=== PATIENT | female | born 1945 | race Caucasian/White ===

== ENCOUNTER → 2017-06-08 09:18 | Outpatient (CLI) | payer MEDICARE, SELFPAY ==
--- NOTE | 2017-06-08 09:26 | XR_ITS ---
XR DEXA axial skeleton COMPARISON: DEXA scan 11/07/2009 HISTORY: Patient is postmenopausal TECHNIQUE: DEXA scanning lumbar spine and hips FINDINGS: The average BMD lumbar spine L1-L4 is 1.497 g centimeters squared with a T score of 2.6. This is improved from the previous study which time the T score was 2.0. The total BMD right hip is 1.169 g centimeters square with a T score 1.3. Right femoral neck is 1.107 g centimeters square with T score of 0.5. These values show little if any change from the previous study. The left hip show similar values. IMPRESSION: Normal study lumbar spine and hips, consider follow-up study in approximately 2 years
--- NOTE | 2017-06-08 09:27 | MM_ITS ---
MM Dig screening mamm BI w/CAD CAD Screening ORDERING PHYSICIAN : Clare Amador MD PATIENT AGE: 71 years GENDER: Female COMPARISON: Previous mammograms: November 2013, August 2011, July INDICATION: Routine screening. No hormones. No new complaints. Patient was very tender today could not tolerate much compression. Noncontributory family history previous percutaneous biopsy left breast TECHNIQUE: Standard CC and MLO images were obtained. R2 CAD reviewed. FINDINGS: Moderate breast density. Mild asymmetry. Overall pattern similar to previous studies with no new areas of concern. No dominant mass nor suspicious calcifications of significant concern. Bilateral follow-up in one year adequate RIGHT BREAST:. No prominent findings. Stable benign calcification 12:00. Subtle asymmetric glandular densities overall appears similar to multiple previous studies dating with no significant change compared back to multiple studies , Including 2009 LEFT BREAST:A metallic clip from previous percutaneous biopsy is seen at the central left rest 12 o'clock position. When technique is considered I see no significant new findings either breast It is noted patient was most tender today and thus less compression but adequate studies. IMPRESSION: . . No significant new findings. . Basically stable . Follow-up in one year recommended & would be encouraged BI-RADS Category: 2 Benign Finding(s) RECOMMENDED FOLLOW-UP: 1YR - 1 YEAR FOLLOW-UP (A letter has been sent to the patient regarding results of the study.) Knee
== END ==
PROVIDERS: PCP Family Medicine; Visit Provider Family Medicine
DX: Z12.31 Encounter for screening mammogram for malignant neoplasm of breast (principal); M85.89 Other specified disorders of bone density and structure, multiple sites
CPT/HCPCS: 77067; 77080

== ENCOUNTER → 2017-06-29 14:03 | Outpatient (CLI) | payer MEDICARE, SELFPAY ==
--- NOTE | 2017-06-29 14:15 | CA_ITS ---
PROCEDURE: 2-D M-mode and color Doppler study INDICATIONS FOR THE TEST: Chest pain COPD Heart Murmur Tobacco Smoking Palpitations Fatigue Syncope Edema+ Hypertension+Diabetes Mellitus Rheumatic Fever SOB HICKS Obesity Hyperlipidemia Family History HD Additional History PATIENT INFORMATION HEIGHT:65 WEIGHT:182 GENDER: Female B/P:110/70 2-D/M-MODE INTERPRETATION: 2-D MEASUREMENTS OBSERVED VALUES IN CMS Right Ventricular Dimension (RVDd) 3.1 Interventricular Septum (Thickness)(IVsd) 1.1 Left Ventricular Internal Dimensions(LVIDd) 3.8 Left Ventricular Posterior Wall (Thickness)(LVPWd) 1.1 Aortic Root 3.2 Aortic Cusp Separation 2.1 Left Atrial Dimensions (LAD) 4.3 2D 1. Left atrium is mildly enlarged, left ventricle is normal size, there is mild concentric left ventricular hypertrophy, visually estimated ejection fraction 55% with no obvious regional wall motion abnormality. 2. The right atrium and right ventricle are mildly enlarged with normal contractility. 3. The aortic valve is minimally thickened and fibrosed. 4. The mitral and tricuspid valve are grossly normal. 5. The pulmonic valve is poorly visualized. 6. No significant pericardial effusion noted. DOPPLER INTERROGATION: Doppler interrogation of the aortic, mitral and tricuspid valvular presence of mild mitral and tricuspid regurgitation, tricuspid and jet velocity insufficient for calculation of the right ventricular systolic pressure. Grade 1 diastolic dysfunction seen with tissue Doppler evidence of raised left atrial pressure. CONCLUSION: 1. Mildly enlarged left atrium, normal left ventricular size, mild concentric left ventricular hypertrophy, visually estimated ejection fraction 55% with no obvious regional wall motion abnormality, grade 1 diastolic dysfunction seen with tissue Doppler evidence of raised left atrial pressure. 2. Mildly enlarged right ventricle with normal contractility. 3. Mild mitral and tricuspid regurgitation 4. No significant pericardial effusion noted.
== END ==
PROVIDERS: PCP Family Medicine; Visit Provider Family Medicine
DX: R60.0 Localized edema (principal)
CPT/HCPCS: 93306

== ENCOUNTER → 2019-11-23 13:47 | Outpatient (CLI) | payer MEDICARE, SELFPAY ==
--- NOTE | 2019-11-23 13:53 | XR_ITS ---
PROCEDURE: XR KNEE RT 3V CLINICAL INDICATION: RT KNEE SPRAIN Posttraumatic pain COMPARISON: No exams were available for comparison FINDINGS: No fracture or dislocation. No lytic or blastic change. There is normal mineralization. There are mild osteoarthritic changes of the medial compartment and patellofemoral joint. Minimal spurring noted involving the interspinous region of the proximal tibia. Other findings:Suspect small suprapatellar effusion. IMPRESSION: Osteoarthritis with small knee joint effusion Dictated by: Neal Paez MD 11/23/2019 15:17 Neal Paez MD in [place] 11/23/2019 15:17
== END ==
PROVIDERS: PCP Family Medicine; Visit Provider Family Medicine
DX: S83.91XA Sprain of unspecified site of right knee, initial encounter (principal)
CPT/HCPCS: 73562

== ENCOUNTER → 2020-01-05 15:27 | Outpatient (CLI) | payer MEDICARE, SELFPAY ==
--- NOTE | 2020-01-05 15:33 | XR_ITS ---
PROCEDURE: XR FOOT RT MIN 3V CLINICAL INDICATION: PAIN IN R FOOT, DEFORMITY OF R FOOT COMPARISON: CR FTR3 FOOT-RT-3 VIEWS from 03/13/2016 FINDINGS: There are severe osteoarthritic changes of the midfoot. There appears to be fusion of the navicular and medial cuneiform. The mid and lateral cuneiform a also be fused. Prominent bony hypertrophy is present along the talonavicular region and at the medial aspect of the navicular bone. Severe osteoarthritis noted at the tarsal metatarsal junction. Prominent bony hypertrophy is present at the base of the 1st metatarsal. Hammertoe deformity involves all toes. Osteoarthritis also at the calcaneocuboid junction. No acute fracture or dislocation. No bony destructive process. IMPRESSION: Severe osteoarthritic changes of the midfoot with suspected bony fusion of the navicular and cuneiforms. Please see above for detail No obvious fracture or dislocation Dictated by: Neal Paez MD 01/06/2020 05:57 Neal Paez MD in [place] 01/06/2020 05:57
== END ==
PROVIDERS: PCP Family Medicine; Visit Provider Family Medicine
DX: M79.671 Pain in right foot (principal); M21.961 Unspecified acquired deformity of right lower leg
CPT/HCPCS: 73630

== ENCOUNTER → 2020-03-30 08:45 | Outpatient (CLI) | payer MEDICARE, SELFPAY ==
--- NOTE | 2020-03-30 | US_ITS ---
APPROVED REPORT Exam Type: Ankle to Brachial Index Licensed Practical Nurse: Madalyn Brandon RT(R) Indications Non-healing Ulcer: Right Rest Pain: ulcer on sole of right foot Risk Factors Hypertension Hyperlipidemia Previous BUCKY 07/2016( RT BUCKY=1.1 LT BUCKY=1.0) Pressures/Indices Right Indices Left Indices Brachial 166.00 mmHg Brachial 154.00 mmHg Low Thigh 197.00 mmHg 1.19 Low Thigh 178.00 mmHg 1.07 Calf 100.00 mmHg 0.60 Calf 195.00 mmHg 1.17 Ankle(PT) 83.00 mmHg 0.50 Ankle(PT) 190.00 mmHg 1.14 Ankle(DP) 88.00 mmHg 0.53 Ankle(DP) 183.00 mmHg 1.10 Digit 62.00 mmHg 0.37 Digit 166.00 mmHg 1.00 Findings RT BUCKY=0.5 LT BUCKY=1.1 RT TBI=0.4 LT TBI=1.0 Abnormal mid and distal waveforms in RLE Diminished and dampened pulses in RLE Normal pulses and waveforms LLE Conclusion RT BUCKY=0.5 LT BUCKY=1.1 RT TBI=0.4 LT TBI=1.0 Abnormal mid and distal waveforms in RLE Diminished and dampened pulses in RLE Normal pulses and waveforms LLE Moderate to severe right arterial disease Critical Notification Critical Value: Yes Physician Notified Date: 03/30/2020 Time: 9:25 Physician Name: WAYNE Kendall Electronically signed by : Neal Paez MD 04/02/2020 15:20:46
== END ==
PROVIDERS: PCP Family Medicine; Visit Provider Family Medicine
DX: M79.671 Pain in right foot; R20.9 Unspecified disturbances of skin sensation; R09.89 Other specified symptoms and signs involving the circulatory and respiratory systems
CPT/HCPCS: 93923

== ENCOUNTER → 2020-04-11 12:37 | Outpatient (CLI) | payer MEDICARE, SELFPAY ==
--- NOTE | 2020-04-11 12:42 | US_ITS ---
PROCEDURE: US ABD. AORTA SCREENING CLINICAL INDICATION: ABD PAIN COMPARISON: No exams were available for comparison FINDINGS: No evidence of aortic aneurysm. There is a mild amount plaque within the aorta. The common iliac arteries are unremarkable. IMPRESSION: Negative for aneurysm Dictated by: Neal Paez MD 04/11/2020 14:09 Neal Paez MD in [place] 04/11/2020 14:09
== END ==
PROVIDERS: PCP Family Medicine; Visit Provider Family Medicine
DX: R10.9 Unspecified abdominal pain (principal)
CPT/HCPCS: 76705

== ENCOUNTER → 2020-07-02 11:06 | Outpatient (CLI) | payer MEDICARE, SELFPAY | PROVIDERS: PCP Family Medicine; Visit Provider Family Medicine | DX: I48.0 Paroxysmal atrial fibrillation (principal) | CPT/HCPCS: 93225; 93226 ==

== ENCOUNTER → 2020-08-02 12:26 | Outpatient (CLI) | payer MEDICARE, SELFPAY ==
--- NOTE | 2020-08-02 12:33 | XR_ITS ---
PROCEDURE: XR FOOT WT BEARING RT 3V CLINICAL INDICATION: ulcer, foot deformity COMPARISON: CR FTR3 FOOT-RT-3 VIEWS from 03/13/2016 CR XR FOOT RT MIN 3V from 01/05/2020 FINDINGS: No acute fractures or dislocations. Severe degenerative changes noted at the tarsometatarsal joints with deformity of the midfoot. Fusion of the tarsal bones, predominantly involving navicular, medial cuneiform and middle cuneiform bones. Deformity with heterotopic ossification is noted at the tarsal bones. Hammertoe deformity, worse in the 5th digit. Soft tissue swelling of the dorsum of the foot noted. IMPRESSION: Fusion anomalies with deformity and severe osteoarthritic changes of the midfoot. No acute fractures or dislocations.. Dictated by: Meseret Thomas 08/02/2020 14:26 Meseret Thomas in [place] 08/02/2020 14:26
[2020-08-02 14:49] LABS: Basophils # 0.1 K/mm3 (0-0.2); Basophils % 0.7 % (0.1-2.0); Eosinophils # 0.3 K/mm3 (0.0-0.4); Eosinophils % 2.6 % (0.1-12.0); Hematocrit 35.9 % (37.0-47.0); Hemoglobin 11.8 g/dL (12.2-16.2); Lymphocytes # 2.3 K/mm3 (0.7-4.5); Lymphocytes % 20.1 % (10-50); Mean Corpuscular HGB Conc 32.8 g/dL (31.8-35.4); Mean Corpuscular Hemoglobin 29.4 pg (27.0-31.2); Mean Corpuscular Volume 89.7 fl (81-99); Mean Platelet Volume 7.4 fl (7.4-10.4); Monocytes # 0.6 K/mm3 (0.1-1.0); Monocytes % 5.5 % (1.7-9.3); Neutrophils # 8.1 K/mm3 (1.8-7.8); Neutrophils % 71.1 % (37.0-80.0); Platelet Count 359 K/mm3 (142-424); Red Cell Distribution Width 13.6 % (11.5-17.5); White Blood Count 11.4 K/mm3 (4.8-10.8)
[2020-08-02 15:24] LABS: Erythrocyte Sedimentation Rate 56 mm/hr (0-30)
[2020-08-02 15:27] LABS: Alanine Aminotransferase 16 U/L (12-78); Albumin Level 4.1 g/dl (3.5-5.0); Albumin/Globulin Ratio 1.4 (1.1-1.8); Alkaline Phosphatase 104 U/L (38-126); Anion Gap 10.9 mEq/L (5-15); Aspartate Amino Transferase 21 U/L (14-36); Bilirubin,Total 0.4 mg/dl (0.2-1.3); Blood Urea Nitrogen 25 mg/dl (7-17); Calcium 9.3 mg/dl (8.4-10.2); Carbon Dioxide 30 mmol/L (22.0-30.0); Chloride 104 mmol/L (98-107); Estimated Glomerular Filt Rate 48 ml/min (>60); GFR (African American) 59 ML/MIN (>60); Globulin 2.9 g/dL (1.3-3.2); Glucose 94 mg/dl (74-100); Potassium 3.9 mmoL/L (3.5-5.1); Sodium 141 mmol/L (136-145)
[2020-08-02 15:32] LABS: C-Reactive Protein 4.6 mg/L (0-4)
== END ==
PROVIDERS: Nurse Practitioner; PCP Family Medicine; Visit Provider Podiatrist
DX: R52 Pain, unspecified (principal); Z51.89 Encounter for other specified aftercare
CPT/HCPCS: 36415; 73630; 80053; 85025; 85651; 86140; 87070; 87077; 87186; 87205

== ENCOUNTER → 2020-08-02 14:17 | Outpatient (CLI) | payer MEDICARE, SELFPAY | PROVIDERS: Visit Provider Nurse Practitioner | DX: M79.671 Pain in right foot (principal); Z51.89 Encounter for other specified aftercare | CPT/HCPCS: 36415; 73630; 80053; 85025; 85651; 86140; 87070; 87077; 87186; 87205 ==

== ENCOUNTER → 2020-08-27 15:19 | Outpatient (CLI) | payer MEDICARE, SELFPAY ==
--- NOTE | 2020-08-27 15:29 | XR_ITS ---
PROCEDURE: XR FOOT WT BEARING RT 3V CLINICAL INDICATION: Right foot plantar wound COMPARISON: CR FTR3 FOOT-RT-3 VIEWS from 03/13/2016 CR XR FOOT RT MIN 3V from 01/05/2020 CR XR FOOT WT BEARING RT 3V from 08/02/2020 FINDINGS: There is persistent severe osteoarthritic change of the midfoot with tarsal fusion as previously described. There is a bandage artifact along the medial aspect of the foot at the tarsal metatarsal junction. No bony destructive process evident at this area. There is pes planus. There is hammertoe deformity of second through 5th toe. IMPRESSION: Chronic changes as described above. No evidence of acute osteomyelitis Dictated by: Neal Paez MD 08/27/2020 16:21 Neal Paez MD in [place] 08/27/2020 16:21
[2020-08-27 16:58] LABS: Basophils # 0.1 K/mm3 (0-0.2); Basophils % 0.4 % (0.1-2.0); Eosinophils # 0.3 K/mm3 (0.0-0.4); Hematocrit 33.8 % (37.0-47.0); Lymphocytes # 2.3 K/mm3 (0.7-4.5); Mean Corpuscular HGB Conc 32.6 g/dL (31.8-35.4); Mean Corpuscular Hemoglobin 29.1 pg (27.0-31.2); Mean Corpuscular Volume 89.4 fl (81-99); Mean Platelet Volume 7.9 fl (7.4-10.4); Monocytes # 0.8 K/mm3 (0.1-1.0); Monocytes % 5.8 % (1.7-9.3); Neutrophils # 9.5 K/mm3 (1.8-7.8); Neutrophils % 73.7 % (37.0-80.0); Platelet Count 370 K/mm3 (142-424); Red Blood Count 3.78 M/mm3 (4.20-5.40); Red Cell Distribution Width 13.6 % (11.5-17.5); White Blood Count 12.9 K/mm3 (4.8-10.8)
[2020-08-27 17:24] LABS: Alanine Aminotransferase 16 U/L (12-78); Albumin/Globulin Ratio 1.2 (1.1-1.8); Alkaline Phosphatase 133 U/L (38-126); Anion Gap 13.1 mEq/L (5-15); Aspartate Amino Transferase 25 U/L (14-36); Bilirubin,Total 0.6 mg/dl (0.2-1.3); Blood Urea Nitrogen 27 mg/dl (7-17); Calcium 9.2 mg/dl (8.4-10.2); Carbon Dioxide 27 mmol/L (22.0-30.0); Chloride 105 mmol/L (98-107); Estimated Glomerular Filt Rate 48 ml/min (>60); GFR (African American) 59 ML/MIN (>60); Globulin 3.4 g/dL (1.3-3.2); Glucose 85 mg/dl (74-100); Potassium 4.1 mmoL/L (3.5-5.1); Sodium 141 mmol/L (136-145); Total Protein,Serum 7.4 g/dl (6.3-8.2)
[2020-08-27 17:29] LABS: C-Reactive Protein 30.5 mg/L (0-4)
[2020-08-27 18:20] LABS: Erythrocyte Sedimentation Rate > 140 mm/hr (0-30)
== END ==
PROVIDERS: Visit Provider Podiatrist
DX: L03.115 Cellulitis of right lower limb (principal)
CPT/HCPCS: 36415; 73630; 80053; 85025; 85651; 86140

== ENCOUNTER → 2020-09-12 13:09 | Outpatient (CLI) | payer MEDICARE, SELFPAY | PROVIDERS: Visit Provider Nurse Practitioner Family | DX: I73.9 Peripheral vascular disease, unspecified (principal); L97.519 Non-pressure chronic ulcer of other part of right foot with unspecified severity; R09.89 Other specified symptoms and signs involving the circulatory and respiratory systems; R68.89 Other general symptoms and signs; Z01.812 Encounter for preprocedural laboratory examination; Z20.822 Contact with and (suspected) exposure to COVID-19 | CPT/HCPCS: U0003 ==

== ENCOUNTER 2020-09-13 07:32 | Day surgery (SDC) | payer MEDICARE, SELFPAY ==
[2020-09-13] VITALS (19 sets, daily range): BP systolic 111–161; BP diastolic 55–71; PULSE 40–64; RESP 16–18; TEMP 36.9; O2SAT 92–100; BMI 27.1
--- NOTE | 2020-09-13 07:06 | IR_ITS ---
APPROVED REPORT Patient Location: Outpatient PROCEDURES Left femoral arterial access Catheter placed on the right common iliac artery Right common iliac artery antegrade angiogram with unilateral runoff to the right foot INDICATION [place] claudication class V, Peripheral artery disease, Abnormal BUCKY Informed consent was obtained prior to the procedure. COMPLICATIONS None Estimated Blood Loss: less than 10ml TECHNIQUE 1% lidocaine used anesthetize left groin the left femoral was accessed via the Salinger technique and a 5 [place]ese sheath was placed in left femoral artery. The rim catheter was then inserted into the distal abdominal aorta under fluoroscopic guidance and the catheter was used to cannulate the right common iliac artery. Antegrade angiography with unilateral runoff to the right foot was performed. At the end the procedure the patient was transferred the postop putting her stable condition for sheath removal ANGIOGRAPHIC RESULTS The right common iliac artery is widely patent with mild atheromatous plaque. The right internal and external iliac artery are mildly atheromatous. The right common femoral artery is mildly atheromatous. The right profunda femoris artery is normal. The right superficial femoral artery is widely patent with mild atheromatous plaque nothing greater than 10 to 20%. The right popliteal artery has proximal 20 to 30% stenosis. At the PT trunk there is vascular disease with a 70 to 80% stenosis immediately proximal to the trifurcation of the anterior and posterior tibialis artery and peroneal artery. There is excellent inline flow through a widely patent anterior and posterior tibialis artery into the right foot. The right peroneal artery is patent until the level of the right ankle IMPRESSION Severe disease at the PT trunk however there is excellent two-vessel inline flow into the right foot The right foot is warm with palpable posterior tibialis artery and dorsalis pedis artery pulses The poorly healing right lower extremity ulcer is almost certainly from venous insufficiency PLAN 1. Medical management for peripheral artery disease 2. Xarelto 2.5 twice daily plus aspirin 81 mg daily 3. Treatment of venous insufficiency which is the etiology for patient's lower extremity ulcer Electronically signed by : Mata Weaver, 09/13/2020 11:08:55
[2020-09-13 08:16] LABS: Chloride 103 mmol/L (98-107); Sodium 140 mmol/L (136-145)
[2020-09-13 08:17] LABS: Basophils # 0.1 K/mm3 (0-0.2); Basophils % 0.6 % (0.1-2.0); Eosinophils # 0.4 K/mm3 (0.0-0.4); Hematocrit 35.7 % (37.0-47.0); Hemoglobin 11.8 g/dL (12.2-16.2); Lymphocytes # 2.6 K/mm3 (0.7-4.5); Lymphocytes % 19.9 % (10-50); Mean Corpuscular HGB Conc 33.1 g/dL (31.8-35.4); Mean Corpuscular Hemoglobin 29.3 pg (27.0-31.2); Mean Corpuscular Volume 88.6 fl (81-99); Mean Platelet Volume 7.4 fl (7.4-10.4); Monocytes # 0.7 K/mm3 (0.1-1.0); Monocytes % 5.4 % (1.7-9.3); Neutrophils # 9.2 K/mm3 (1.8-7.8); Neutrophils % 71.1 % (37.0-80.0); Platelet Count 350 K/mm3 (142-424); Potassium 3.9 mmoL/L (3.5-5.1); Red Blood Count 4.02 M/mm3 (4.20-5.40); White Blood Count 12.9 K/mm3 (4.8-10.8)
[2020-09-13 08:19] LABS: Blood Urea Nitrogen 26 mg/dl (7-17); Creatinine Clearance Estimated 63 mL/min (50-200); Estimated Glomerular Filt Rate 54 ml/min (>60); GFR (African American) 65 ML/MIN (>60)
[2020-09-13 08:20] LABS: Anion Gap 13.9 mEq/L (5-15); Calcium 9.3 mg/dl (8.4-10.2); Carbon Dioxide 27 mmol/L (22.0-30.0); Glucose 107 mg/dl (74-100)
== END 2020-09-13 13:44 | disposition home or self-care (01) ==
LOC: CATHLAB 07:34
PROVIDERS: PCP Family Medicine; Visit Provider Internal Medicine
DX: L97.512 Non-pressure chronic ulcer of other part of right foot with fat layer exposed; R09.89 Other specified symptoms and signs involving the circulatory and respiratory systems; I70.235 Atherosclerosis of native arteries of right leg with ulceration of other part of foot; L03.115 Cellulitis of right lower limb; M21.961 Unspecified acquired deformity of right lower leg; Z79.01 Long term (current) use of anticoagulants; I10 Essential (primary) hypertension; I70.223 Atherosclerosis of native arteries of extremities with rest pain, bilateral legs; Z79.899 Other long term (current) drug therapy; I77.1 Stricture of artery
CPT/HCPCS: 36247; 75710; 80048; 85025; 99152; C1725; C1769; C1894; Q9966

== ENCOUNTER → 2020-09-27 12:42 | Outpatient (CLI) | payer MEDICARE, SELFPAY ==
[2020-09-27 12:55] LABS: Basophils # 0.1 K/mm3 (0-0.2); Basophils % 0.7 % (0.1-2.0); Eosinophils # 0.3 K/mm3 (0.0-0.4); Eosinophils % 3.2 % (0.1-12.0); Hematocrit 34.2 % (37.0-47.0); Hemoglobin 11.7 g/dL (12.2-16.2); Lymphocytes # 2.1 K/mm3 (0.7-4.5); Mean Corpuscular HGB Conc 34.1 g/dL (31.8-35.4); Mean Corpuscular Hemoglobin 29.5 pg (27.0-31.2); Mean Corpuscular Volume 86.5 fl (81-99); Mean Platelet Volume 8.3 fl (7.4-10.4); Monocytes # 0.5 K/mm3 (0.1-1.0); Monocytes % 5.2 % (1.7-9.3); Neutrophils # 7.4 K/mm3 (1.8-7.8); Neutrophils % 70.9 % (37.0-80.0); Platelet Count 280 K/mm3 (142-424); Red Blood Count 3.95 M/mm3 (4.20-5.40); Red Cell Distribution Width 14.3 % (11.5-17.5); White Blood Count 10.5 K/mm3 (4.8-10.8)
[2020-09-27 13:38] LABS: Erythrocyte Sedimentation Rate > 140 mm/hr (0-30)
[2020-09-27 13:40] LABS: Chloride 107 mmol/L (98-107); Potassium 3.9 mmoL/L (3.5-5.1); Sodium 144 mmol/L (136-145)
[2020-09-27 13:42] LABS: Blood Urea Nitrogen 25 mg/dl (7-17); Estimated Glomerular Filt Rate 54 ml/min (>60); GFR (African American) 65 ML/MIN (>60)
[2020-09-27 13:43] LABS: Alanine Aminotransferase 16 U/L (12-78); Albumin Level 4.1 g/dl (3.5-5.0); Albumin/Globulin Ratio 1.3 (1.1-1.8); Alkaline Phosphatase 128 U/L (38-126); Anion Gap 13.9 mEq/L (5-15); Aspartate Amino Transferase 23 U/L (14-36); Bilirubin,Total 0.5 mg/dl (0.2-1.3); Carbon Dioxide 27 mmol/L (22.0-30.0); Globulin 3.2 g/dL (1.3-3.2); Glucose 116 mg/dl (74-100); Total Protein,Serum 7.3 g/dl (6.3-8.2)
[2020-09-27 14:20] LABS: C-Reactive Protein 2.7 mg/L (0-4)
== END ==
PROVIDERS: Visit Provider Nurse Practitioner
DX: L97.519 Non-pressure chronic ulcer of other part of right foot with unspecified severity (principal); Z51.89 Encounter for other specified aftercare
CPT/HCPCS: 36415; 80053; 85025; 85651; 86140

== ENCOUNTER → 2020-10-30 10:56 | Outpatient (CLI) | payer MEDICARE, SELFPAY ==
--- NOTE | 2020-10-30 11:01 | XR_ITS ---
PROCEDURE: XR FOOT WT BEARING RT 3V CLINICAL INDICATION: wound located on plantar surface COMPARISON: CR FTR3 FOOT-RT-3 VIEWS from 03/13/2016 CR XR FOOT RT MIN 3V from 01/05/2020 CR XR FOOT WT BEARING RT 3V from 08/02/2020 CR XR FOOT WT BEARING RT 3V from 08/27/2020 FINDINGS: Flexion deformity involves 1st through 5th toes. Prior navicular and cuneiform fusion. Prominent osteophyte noted dorsally at the navicular cuneiform junction. Osteoarthritic changes are present at posterior subtalar joint. No obvious bony erosive process evident that would indicate osteomyelitis. Osteoarthritic changes at the tarsal metatarsal junction. Other findings:None. IMPRESSION: Osteoarthritic changes. Midfoot fusion. No bony destructive process apparent that would indicate osteomyelitis. Dictated by: Neal Paez MD 10/30/2020 11:26 Neal Paez MD in [place] 10/30/2020 11:26
[2020-10-30 12:16] LABS: Basophils # 0.1 K/mm3 (0-0.2); Eosinophils # 0.3 K/mm3 (0.0-0.4); Eosinophils % 2.8 % (0.1-12.0); Hematocrit 37.1 % (37.0-47.0); Hemoglobin 12.1 g/dL (12.2-16.2); Lymphocytes # 2.2 K/mm3 (0.7-4.5); Lymphocytes % 19.6 % (10-50); Mean Corpuscular HGB Conc 32.7 g/dL (31.8-35.4); Mean Corpuscular Hemoglobin 28.9 pg (27.0-31.2); Mean Corpuscular Volume 88.4 fl (81-99); Mean Platelet Volume 7.7 fl (7.4-10.4); Monocytes # 0.6 K/mm3 (0.1-1.0); Monocytes % 5.3 % (1.7-9.3); Neutrophils # 7.9 K/mm3 (1.8-7.8); Neutrophils % 71.4 % (37.0-80.0); Platelet Count 313 K/mm3 (142-424); Red Blood Count 4.19 M/mm3 (4.20-5.40); Red Cell Distribution Width 14.7 % (11.5-17.5); White Blood Count 11.1 K/mm3 (4.8-10.8)
[2020-10-30 12:39] LABS: Chloride 103 mmol/L (98-107); Sodium 141 mmol/L (136-145)
[2020-10-30 12:40] LABS: Potassium 4.7 mmoL/L (3.5-5.1)
[2020-10-30 12:42] LABS: Alanine Aminotransferase 19 U/L (12-78); Albumin Level 4.4 g/dl (3.5-5.0); Albumin/Globulin Ratio 1.3 (1.1-1.8); Alkaline Phosphatase 148 U/L (38-126); Anion Gap 14.7 mEq/L (5-15); Aspartate Amino Transferase 27 U/L (14-36); Bilirubin,Total 0.6 mg/dl (0.2-1.3); Blood Urea Nitrogen 28 mg/dl (7-17); Carbon Dioxide 28 mmol/L (22.0-30.0); Estimated Glomerular Filt Rate 54 ml/min (>60); GFR (African American) 65 ML/MIN (>60); Globulin 3.3 g/dL (1.3-3.2); Total Protein,Serum 7.7 g/dl (6.3-8.2)
[2020-10-30 12:43] LABS: Calcium 9.5 mg/dl (8.4-10.2); Glucose 99 mg/dl (74-100)
[2020-10-30 17:52] LABS: Erythrocyte Sedimentation Rate 70 mm/hr (0-30)
== END ==
PROVIDERS: PCP Family Medicine; Visit Provider Nurse Practitioner
DX: M79.671 Pain in right foot (principal); Z51.89 Encounter for other specified aftercare; I63.9 Cerebral infarction, unspecified
CPT/HCPCS: 36415; 73630; 80053; 85025; 85651; 86140

== ENCOUNTER → 2020-11-20 10:58 | Outpatient (CLI) | payer MEDICARE, SELFPAY ==
[2020-11-20 11:48] LABS: Basophils # 0.1 K/mm3 (0-0.2); Basophils % 0.8 % (0.1-2.0); Eosinophils # 0.4 K/mm3 (0.0-0.4); Eosinophils % 3.8 % (0.1-12.0); Hematocrit 35.3 % (37.0-47.0); Hemoglobin 11.4 g/dL (12.2-16.2); Lymphocytes # 1.9 K/mm3 (0.7-4.5); Lymphocytes % 19.6 % (10-50); Mean Corpuscular HGB Conc 32.2 g/dL (31.8-35.4); Mean Corpuscular Hemoglobin 29.1 pg (27.0-31.2); Mean Corpuscular Volume 90.3 fl (81-99); Monocytes # 0.5 K/mm3 (0.1-1.0); Neutrophils # 6.8 K/mm3 (1.8-7.8); Neutrophils % 70.7 % (37.0-80.0); Platelet Count 296 K/mm3 (142-424); Red Blood Count 3.91 M/mm3 (4.20-5.40); Red Cell Distribution Width 14.4 % (11.5-17.5); White Blood Count 9.7 K/mm3 (4.8-10.8)
[2020-11-20 12:13] LABS: Erythrocyte Sedimentation Rate 28 mm/hr (0-30)
[2020-11-20 12:27] LABS: Alanine Aminotransferase 17 U/L (12-78); Albumin Level 3.8 g/dl (3.5-5.0); Albumin/Globulin Ratio 1.2 (1.1-1.8); Alkaline Phosphatase 121 U/L (38-126); Anion Gap 11.6 mEq/L (5-15); Aspartate Amino Transferase 24 U/L (14-36); Bilirubin,Total 0.4 mg/dl (0.2-1.3); Blood Urea Nitrogen 25 mg/dl (7-17); Calcium 9.1 mg/dl (8.4-10.2); Carbon Dioxide 28 mmol/L (22.0-30.0); Chloride 103 mmol/L (98-107); Estimated Glomerular Filt Rate 61 ml/min (>60); GFR (African American) 74 ML/MIN (>60); Globulin 3.1 g/dL (1.3-3.2); Glucose 98 mg/dl (74-100); Potassium 4.6 mmoL/L (3.5-5.1); Sodium 138 mmol/L (136-145); Total Protein,Serum 6.9 g/dl (6.3-8.2)
[2020-11-20 12:32] LABS: C-Reactive Protein 5.1 mg/L (0-4)
== END ==
PROVIDERS: Visit Provider Nurse Practitioner
DX: I63.9 Cerebral infarction, unspecified (principal); Z51.89 Encounter for other specified aftercare; L97.512 Non-pressure chronic ulcer of other part of right foot with fat layer exposed
CPT/HCPCS: 36415; 80053; 85025; 85651; 86140; 87070; 87077; 87186; 87205

== ENCOUNTER → 2020-11-22 08:28 | Outpatient (CLI) | payer MEDICARE, SELFPAY ==
--- NOTE | 2020-11-22 08:29 | MR_ITS ---
PROCEDURE INFORMATION: Exam: MR Right Lower Extremity Other Than Joint Without and With Contrast; Foot Exam date and time: 11/22/2020 8:29 AM Age: 75 years old Clinical indication: Pain; Foot; Right; Additional info: Evaluate for presence of osteomyelitis. Sore on plantar surface of foot in arch [id number]. 17ml prohance given. Lot: [id number] exp: Sep 2022 bun: 25 cre: 0.9 gfr: 61 prior x-ray 08-27-20 TECHNIQUE: Imaging protocol: MR of the Right lower extremity without and with intravenous contrast. Exam focused on the foot. Contrast material: PROHANCE; Contrast volume: 17 ml; Contrast route: IV; COMPARISON: 1. CR XR FOOT WT BEARING RT 3V 10/30/2020 11:11 AM 2. CR XR FOOT WT BEARING RT 3V 08/27/2020 3:58 PM 3. CR XR FOOT WT BEARING RT 3V 08/02/2020 12:34 PM FINDINGS: Bones and cartilage: There is mature fusion of the navicular to the cuneiform bones. Flexion deformities involve the toes. Moderate to severe osteoarthritis involves the tarsometatarsal joints lateral cuneiform-cuboid joint, and subtalar joint. No osteomyelitis. Joint spaces: No significant joint effusion. LIGAMENTS: Lisfranc ligament: Unremarkable. No evidence of tear. TENDONS: Flexor tendons of foot: Unremarkable. No evidence of tear. Tibialis posterior tendon: Unremarkable as visualized. Peroneal tendons: Unremarkable as visualized. Extensor tendons of foot: Unremarkable. No evidence of tear. Tibialis anterior tendon: The tibialis anterior tendon becomes non-visible at the level of the ankle and may be ruptured. Tarsal canal (Sinus tarsi): A mild amount of edema is present in the sinus tarsi region, which can be associated with sinus tarsi syndrome. Tarsal tunnel: Unremarkable. Muscles: The musculature demonstrates moderate edema and severe atrophy. Soft tissues: A soft tissue ulcer is located along the plantar midfoot. There is no organized discrete fluid signal intensity focus to suggest a drainable abscess. Nonspecific moderate subcutaneous edema involves the ankle and plantar medial hindfoot. Plantar fascia: Unremarkable as visualized. IMPRESSION: 1. No osteomyelitis. 2. Soft tissue ulcer along the plantar midfoot without abscess. 3. Possible tibialis anterior tendon rupture. 4. Mature navicular-cuneiform fusion. 5. Multifocal severe osteoarthritis. 6. Edema in the sinus tarsi region, which can be associated with sinus tarsi syndrome.
== END ==
PROVIDERS: PCP Family Medicine; Visit Provider Nurse Practitioner
DX: L97.512 Non-pressure chronic ulcer of other part of right foot with fat layer exposed (principal); L97.519 Non-pressure chronic ulcer of other part of right foot with unspecified severity
CPT/HCPCS: 73720; A9576

== ENCOUNTER → 2021-01-11 10:51 | Outpatient (CLI) | payer MEDICARE, SELFPAY ==
[2021-01-11 12:21] LABS: Chloride 104 mmol/L (98-107); Potassium 4.6 mmoL/L (3.5-5.1); Sodium 141 mmol/L (136-145)
[2021-01-11 12:24] LABS: Alanine Aminotransferase 18 U/L (12-78); Albumin Level 3.6 g/dl (3.5-5.0); Albumin/Globulin Ratio 1.2 (1.1-1.8); Alkaline Phosphatase 119 U/L (38-126); Anion Gap 13.6 mEq/L (5-15); Aspartate Amino Transferase 31 U/L (14-36); Bilirubin,Total 0.3 mg/dl (0.2-1.3); Blood Urea Nitrogen 21 mg/dl (7-17); Carbon Dioxide 28 mmol/L (22.0-30.0); Estimated Glomerular Filt Rate 61 ml/min (>60); GFR (African American) 74 ML/MIN (>60); Globulin 3.1 g/dL (1.3-3.2); Total Protein,Serum 6.7 g/dl (6.3-8.2)
[2021-01-11 12:25] LABS: Calcium 9.1 mg/dl (8.4-10.2); Glucose 107 mg/dl (74-100)
[2021-01-11 12:30] LABS: C-Reactive Protein 7.6 mg/L (0-4)
== END ==
PROVIDERS: Visit Provider Family Medicine
DX: L97.519 Non-pressure chronic ulcer of other part of right foot with unspecified severity (principal)
CPT/HCPCS: 36415; 80053; 86140

== ENCOUNTER → 2021-01-23 15:23 | Outpatient (CLI) | payer MEDICARE, SELFPAY ==
--- NOTE | 2021-01-23 15:29 | XR_ITS ---
PROCEDURE: XR FOOT WT BEARING RT 3V CLINICAL INDICATION: ulcer of right 5th toe COMPARISON: CR XR FOOT RT MIN 3V from 01/05/2020 CR XR FOOT WT BEARING RT 3V from 08/02/2020 CR XR FOOT WT BEARING RT 3V from 08/27/2020 CR XR FOOT WT BEARING RT 3V from 10/30/2020 FINDINGS: There is pes planus. Apparent midfoot fusion. Osteoarthritic change tarsal metatarsal junction 1 through 5. Hammertoe deformity digits 2 through 5. No obvious bony erosive process apparent Other findings:None. IMPRESSION: Chronic changes. No bony erosive process identified that would indicate acute osteomyelitis Dictated by: Neal Paez MD 01/23/2021 16:25 Neal Paez MD in [place] 01/23/2021 16:25
[2021-01-23 16:30] LABS: Basophils # 0.1 K/mm3 (0-0.2); Basophils % 0.5 % (0.1-2.0); Eosinophils # 0.2 K/mm3 (0.0-0.4); Eosinophils % 1.8 % (0.1-12.0); Hematocrit 36.9 % (37.0-47.0); Hemoglobin 11.7 g/dL (12.2-16.2); Lymphocytes # 2.2 K/mm3 (0.7-4.5); Lymphocytes % 17.5 % (10-50); Mean Corpuscular HGB Conc 31.8 g/dL (31.8-35.4); Mean Corpuscular Hemoglobin 28.9 pg (27.0-31.2); Mean Corpuscular Volume 91.1 fl (81-99); Mean Platelet Volume 7.4 fl (7.4-10.4); Monocytes # 0.9 K/mm3 (0.1-1.0); Monocytes % 6.9 % (1.7-9.3); Neutrophils # 9.4 K/mm3 (1.8-7.8); Neutrophils % 73.4 % (37.0-80.0); Platelet Count 398 K/mm3 (142-424); Red Blood Count 4.05 M/mm3 (4.20-5.40); White Blood Count 12.8 K/mm3 (4.8-10.8)
[2021-01-23 17:07] LABS: Erythrocyte Sedimentation Rate 115 mm/hr (0-30)
[2021-01-23 17:48] LABS: Chloride 101 mmol/L (98-107); Potassium 4.7 mmoL/L (3.5-5.1); Sodium 139 mmol/L (136-145)
[2021-01-23 17:51] LABS: Alanine Aminotransferase 20 U/L (12-78); Albumin Level 3.8 g/dl (3.5-5.0); Albumin/Globulin Ratio 1.2 (1.1-1.8); Alkaline Phosphatase 131 U/L (38-126); Anion Gap 16.7 mEq/L (5-15); Aspartate Amino Transferase 26 U/L (14-36); Bilirubin,Total 0.3 mg/dl (0.2-1.3); Blood Urea Nitrogen 24 mg/dl (7-17); Carbon Dioxide 26 mmol/L (22.0-30.0); Estimated Glomerular Filt Rate 44 ml/min (>60); GFR (African American) 53 ML/MIN (>60); Globulin 3.1 g/dL (1.3-3.2); Glucose 133 mg/dl (74-100); Total Protein,Serum 6.9 g/dl (6.3-8.2)
[2021-01-23 17:52] LABS: Calcium 9.1 mg/dl (8.4-10.2)
[2021-01-23 17:56] LABS: C-Reactive Protein 26.6 mg/L (0-4)
== END ==
PROVIDERS: PCP Family Medicine; Visit Provider Nurse Practitioner
DX: L97.512 Non-pressure chronic ulcer of other part of right foot with fat layer exposed (principal); S91.104A Unspecified open wound of right lesser toe(s) without damage to nail, initial encounter
CPT/HCPCS: 36415; 73630; 80053; 85025; 85651; 86140

== ENCOUNTER → 2021-02-19 11:32 | Outpatient (CLI) | payer MEDICARE, SELFPAY | PROVIDERS: Visit Provider Nurse Practitioner | DX: L97.511 Non-pressure chronic ulcer of other part of right foot limited to breakdown of skin (principal) | CPT/HCPCS: 87070; 87205 ==

== ENCOUNTER → 2021-02-27 16:19 | Outpatient (CLI) | payer MEDICARE, SELFPAY | PROVIDERS: Visit Provider Nurse Practitioner | DX: L97.511 Non-pressure chronic ulcer of other part of right foot limited to breakdown of skin (principal); B95.7 Other staphylococcus as the cause of diseases classified elsewhere | CPT/HCPCS: 87070; 87077; 87186; 87205 ==

== ENCOUNTER 2021-03-11 08:36 | Outpatient (CLI) | payer MEDICARE, SELFPAY ==
[2021-03-11] VITALS (8 sets, daily range): BP systolic 139–161; BP diastolic 58–75; PULSE 49–59; RESP 16–18; TEMP 36.4–36.6; O2SAT 97–98
== END 2021-03-11 13:15 | disposition home or self-care (01) ==
LOC: INF 08:38
PROVIDERS: PCP Family Medicine; Visit Provider Podiatrist
DX: L97.512 Non-pressure chronic ulcer of other part of right foot with fat layer exposed (principal)
CPT/HCPCS: 96365; 96366; J2407

== ENCOUNTER 2021-04-02 15:00 | Outpatient (RCR) | payer MEDICARE, SELFPAY ==
--- NOTE | 2021-02-19 11:14 | HMH.PTOPWND ---
Rehab Outpt Wound Evaluation Rehab OP Wound Evaluation Start: 02/19/21 09:57 Freq: Status: Active Protocol: Document 02/19/21 11:01 KARENA (Rec: 02/19/21 11:12 PHOPAUL [id number]) Electronically Signed By Nicolás Parham, PT 02/19/21 11:01 Subjective/History History History Pt is 75 yowf who presents with R plantar, medial foot wound x ~ 8 mos with insidious onset. 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 She reports her sensation has now begun to return, but she reports no pain at this time. She had MRI and more recent X- ray performed with no osteomyelitis noted on the R foot. She also reports having an arteriogram performed with no PAD noted. She has PMH of CVA, HTN, HL, a-fib, CCY. Subjective Subjective She reports tenderness in the wound with debridement. 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 Is This a Chronic Wound Yes Wound Length (cm) 4.0 Wound Width (cm) 4.5 Wound Depth (cm) 0.2 Wound Bed Appearance Beefy Red,Yellow Percentage Granulated (%) 25 Percentage of Slough (%) 75 Wound Margins Description Well Defined Surrounding Tissue Appearance Indurated Edema Type Pitting Edema Degree 2+ Query Text:1+ Trace, Barely Detectable, Rebound 15-30 seconds 2+ Moderate, Slight Indentation, Rebound 10-20 seconds 3+ Deep, Deeper Indentation, Rebound > 30 seconds 4+ Very Deep, Rebound > 60 seconds Edema Appearance Puffy Drainage Description Serosanguineous Drainage Amount Small Drainage Odor No Odor Wound Topical Solution/Irrigant Saline Irrigant Primary Dressing collagen Comment puracol Wound Secondary Dressing Type Composite,Gauze Roll/Wrap, [place] Comment optifoam gentle border Wound Debridement Method Sharps,Forceps,Gauze Wound Debridement Amount of Tissue Minimal Removed Dressing Change Patient Tolerance Tolerated Well Wound Problems/Impairments Impairments Probl
--- NOTE | 2021-04-02 15:46 | HMH.RHREAS ---
Rehab Reassessment Rehab OP Re-assessment Start: 04/02/21 15:40 Freq: Status: Active Protocol: Document 04/02/21 15:42 KARENA (Rec: 04/02/21 15:46 KARENA [id number]) Electronically Signed By Nicolás Parham, PT 04/02/21 15:42 Rehab Re-assessment Subjective Subjective Pt reports much less tenderness to palpation and with dressing changes. Objective Objective Notes R plantar foot wound: L= 3.8 cm, W= 4.2 cm, D= 0.2 cm. 95% healthy granulation tissue noted this visit. Assessment Progress Assessment Slower Than Expected Assessment Notes Pt has had some healing noted, but not as much as expected. Less slough in the wound bed, but hyperkeratotic rim remains . Continued drainage noted. Patient goals met none Goals Not Met ST,2,3,4 LT,2,3,4, 5,6 Revised Goals none Plan Plan Continue per initial POC. Frequency of Therapy 2 x/wk Duration of therapy 8 wks Time and Billing Re-Eval Time 15 Re-Eval Billing Units 1 PHYSICIAN CERTIFICATION: I certify the specified therapy services for Gwen Sarkar are required, authorized, and reviewed every 30 days.
== END 2021-04-02 15:05 | disposition home or self-care (01) ==
LOC: PT 15:00
PROVIDERS: PCP Family Medicine; Visit Provider Podiatrist
DX: L97.511 Non-pressure chronic ulcer of other part of right foot limited to breakdown of skin (principal)
CPT/HCPCS: 97140; 97163; 97164; 97597; 97760

== ENCOUNTER → 2021-05-13 09:13 | Outpatient (CLI) | payer MEDICARE, SELFPAY ==
--- NOTE | 2021-05-13 09:18 | XR_ITS ---
FINAL REPORT TECHNIQUE: Bone densitometry calculations of the lumbar spine and left hip were obtained. CLINICAL HISTORY: . osteopenia FINDINGS: Using L1-4, the bone mineral density of the spine is 1.356 g/cm2, corresponding to T-score of 2.8. Using the left hip, the bone mineral density of the femoral neck is 0.982 g/cm2, corresponding to a T-score of 1.2. Using the right hip, the bone mineral density of the femoral neck is 0.812 g/cm2, corresponding to a T-score of -0.3. NOTE: T-score: Standard deviation compared with peak bone mass of young adult mean. *Following the recommendations of the International Society of Bone densitometry, classification of hip BMD is based on the lower of two T-scores; total hip or femoral neck. IMPRESSION: Normal bone mineral density of the lumbar spine and both hips. Reviewed, Interpreted and Dictated by Johny Abdi MD Transcribed by Apurva Hernández Authenticated by Johny Abdi MD on 05/13/2021 11:17:[address] [facility]
== END ==
PROVIDERS: PCP Family Medicine; Visit Provider Family Medicine
DX: Z78.0 Asymptomatic menopausal state (principal)
CPT/HCPCS: 77080

== ENCOUNTER 2021-06-12 10:00 | Outpatient (RCR) | payer MEDICARE, SELFPAY ==
--- NOTE | 2021-05-30 10:35 | HMH.PTOPWND ---
Rehab Outpt Wound Evaluation Rehab OP Wound Evaluation Start: 05/30/21 09:56 Freq: Status: Active Protocol: Document 05/30/21 10:22 KARENA (Rec: 05/30/21 10:34 PHOPAUL [id number]) Electronically Signed By Nicolás Parham, PT 05/30/21 10:22 Subjective/History History History Pt is 75 yowf who presents with chronic wound to the R medial foot plantar surface x ~ 1 yr with insidious onset. She has significant genu valgus on the R side which results in R hip circumduction and R foot excessive pronation during gait. She has hx of CVA, PAD, HTN, and HL. She reports no c/o pain in the R foot at this time. Subjective Subjective No c/o pain currently, no tenderness to palpation in the ho-wound area. Wound Eval Wound Right Medial Foot Wound Type likely pressure related to gait changes Is This a Chronic Wound Yes Wound Length (cm) 4.3 Wound Width (cm) 4.9 Wound Depth (cm) 0.9 Wound Bed Appearance Beefy Red,Yellow Percentage Granulated (%) 90 Percentage of Slough (%) 10 Wound Margins Description indurated Surrounding Tissue Appearance Edges Rolled Edema Type Pitting Edema Degree 1+ Query Text:1+ Trace, Barely Detectable, Rebound 15-30 seconds 2+ Moderate, Slight Indentation, Rebound 10-20 seconds 3+ Deep, Deeper Indentation, Rebound > 30 seconds 4+ Very Deep, Rebound > 60 seconds Edema Appearance Puffy Drainage Description Serosanguineous Drainage Amount Moderate Wound Topical Solution/Irrigant Saline Irrigant Primary Dressing collagen Comment puracol Wound Secondary Dressing Type Composite Comment optifoam gentle border SA Wound Debridement Method Sharps,Forceps,Gauze Wound Debridement Amount of Tissue Minimal Removed Dressing Change Patient Tolerance Tolerated Well Wound Problems/Impairments Impairments Problems/Impairmments Impaired Gait Pattern,Impaired Walking,Impaired Standing, Increased Edema,Lymphedema Present,Wound Care Needs, Impaired Self Care/Self
== END 2021-06-12 10:05 | disposition home or self-care (01) ==
LOC: PT 10:00
PROVIDERS: PCP Family Medicine; Visit Provider Podiatrist
DX: L97.511 Non-pressure chronic ulcer of other part of right foot limited to breakdown of skin (principal); L97.512 Non-pressure chronic ulcer of other part of right foot with fat layer exposed; L97.519 Non-pressure chronic ulcer of other part of right foot with unspecified severity
CPT/HCPCS: 97162; 97597

== ENCOUNTER → 2021-07-20 10:20 | Outpatient (CLI) | payer MEDICARE, SELFPAY ==
[2021-07-20 10:55] LABS: Basophils # 0.1 K/mm3 (0-0.2); Basophils % 0.7 % (0.1-2.0); Eosinophils # 0.3 K/mm3 (0.0-0.4); Hematocrit 32.5 % (37.0-47.0); Hemoglobin 10.5 g/dL (12.2-16.2); Lymphocytes # 1.7 K/mm3 (0.7-4.5); Lymphocytes % 13.6 % (10-50); Mean Corpuscular HGB Conc 32.4 g/dL (31.8-35.4); Mean Corpuscular Hemoglobin 29.3 pg (27.0-31.2); Mean Corpuscular Volume 90.7 fl (81-99); Mean Platelet Volume 8.2 fl (7.4-10.4); Monocytes # 0.8 K/mm3 (0.1-1.0); Monocytes % 6.2 % (1.7-9.3); Neutrophils # 9.9 K/mm3 (1.8-7.8); Neutrophils % 77.5 % (37.0-80.0); Platelet Count 521 K/mm3 (142-424); Red Blood Count 3.59 M/mm3 (4.20-5.40); Red Cell Distribution Width 14.2 % (11.5-17.5); White Blood Count 12.8 K/mm3 (4.8-10.8)
--- NOTE | 2021-07-20 10:56 | XR_ITS ---
PROCEDURE INFORMATION: Exam: XR Right Foot Complete; Alignment Exam date and time: 07/20/2021 10:57 AM Age: 75 years old Clinical indication: Pain; Foot; Right; Additional info: Pain, wound TECHNIQUE: Imaging protocol: XR Right foot. Views: 3 or more views. COMPARISON: CR XR FOOT WT BEARING RT 3V 01/23/2021 3:31 PM FINDINGS: Bones/joints: Redemonstrated is deformity of the big toe. There is valgus orientation of the IP joint and medial bony deformity of the proximal phalanx. Stable sclerosis of the 1st metatarsal. Osteoarthritic changes which are most advanced and severe at the TMT joints. No evidence of an acute fracture or dislocation. Hammertoe deformities. Soft tissues: Soft tissue swelling. There is new soft tissue gas around the big toe, greatest near the IP joint. IMPRESSION: Stable chronic bony changes and deformity of the big toe. Soft tissue swelling. There is new soft tissue gas around the big toe, greatest near the IP joint; findings are suspicious for an ulcer/soft tissue infection. No definite osteolysis, but recommend MRI with IV contrast for further evaluation of osteomyelitis if clinically indicated.
[2021-07-20 12:00] LABS: Erythrocyte Sedimentation Rate > 140 mm/hr (0-30)
[2021-07-20 14:51] LABS: Alanine Aminotransferase 28 U/L (12-78); Albumin Level 3.5 g/dl (3.5-5.0); Albumin/Globulin Ratio 1.2 (1.1-1.8); Alkaline Phosphatase 129 U/L (38-126); Anion Gap 14.5 mEq/L (5-15); Aspartate Amino Transferase 31 U/L (14-36); Bilirubin,Total 0.6 mg/dl (0.2-1.3); Blood Urea Nitrogen 34 mg/dl (7-17); Calcium 8.9 mg/dl (8.4-10.2); Carbon Dioxide 25 mmol/L (22.0-30.0); Chloride 103 mmol/L (98-107); Estimated Glomerular Filt Rate 37 ml/min (>60); GFR (African American) 44 ML/MIN (>60); Glucose 117 mg/dl (74-100); Potassium 4.5 mmoL/L (3.5-5.1); Sodium 138 mmol/L (136-145); Total Protein,Serum 6.5 g/dl (6.3-8.2)
[2021-07-20 14:56] LABS: C-Reactive Protein 50.9 mg/L (0-4)
== END ==
PROVIDERS: Visit Provider Podiatrist
DX: Z51.89 Encounter for other specified aftercare (principal); Z91.19 Patient's noncompliance with other medical treatment and regimen; M79.671 Pain in right foot
CPT/HCPCS: 36415; 73630; 80053; 85025; 85651; 86140

== ENCOUNTER → 2021-09-14 11:01 | Outpatient (CLI) | payer MEDICARE, SELFPAY | PROVIDERS: PCP Family Medicine; Visit Provider Ophthalmology | DX: Z01.812 Encounter for preprocedural laboratory examination (principal); Z20.822 Contact with and (suspected) exposure to COVID-19 | CPT/HCPCS: C9803; U0003; U0005 ==

== ENCOUNTER → 2021-09-28 11:27 | Outpatient (CLI) | payer MEDICARE, SELFPAY | PROVIDERS: PCP Family Medicine; Visit Provider Ophthalmology | DX: Z01.812 Encounter for preprocedural laboratory examination (principal); Z20.822 Contact with and (suspected) exposure to COVID-19 | CPT/HCPCS: C9803; U0003; U0005 ==

== ENCOUNTER 2021-10-01 06:03 | Day surgery (SDC) | payer MEDICARE, SELFPAY ==
[2021-09-26 13:19] VITALS: BMI 32.2
[2021-10-01] VITALS (7 sets, daily range): BP systolic 96–128; BP diastolic 45–60; PULSE 53–64; RESP 18; TEMP 36.2–36.3; O2SAT 97–99
== END 2021-10-01 08:12 | disposition home or self-care (01) ==
LOC: OR 06:04
PROVIDERS: PCP Family Medicine; Visit Provider Ophthalmology
DX: H25.813 Combined forms of age-related cataract, bilateral (principal); I48.91 Unspecified atrial fibrillation; M19.90 Unspecified osteoarthritis, unspecified site; Z86.79 Personal history of other diseases of the circulatory system
CPT/HCPCS: 66984; V2632

== ENCOUNTER → 2021-10-12 10:29 | Outpatient (CLI) | payer MEDICARE, SELFPAY | PROVIDERS: PCP Family Medicine; Visit Provider Ophthalmology | DX: U07.1 COVID-19 (principal) | CPT/HCPCS: C9803; U0003; U0005 ==

== ENCOUNTER → 2021-11-09 09:53 | Outpatient (CLI) | payer MEDICARE, SELFPAY | PROVIDERS: PCP Family Medicine; Visit Provider Ophthalmology | DX: U07.1 COVID-19 (principal) | CPT/HCPCS: C9803; U0003; U0005 ==

== ENCOUNTER 2021-12-17 06:38 | Day surgery (SDC) | payer MEDICARE, SELFPAY ==
[2021-11-06 09:43] VITALS: BMI 31.2
[2021-12-17] VITALS (7 sets, daily range): BP systolic 119–159; BP diastolic 58–94; PULSE 50–69; RESP 16–18; TEMP 36.4–36.6; O2SAT 98–100; BMI 29.2
== END 2021-12-17 08:50 | disposition home or self-care (01) ==
PROVIDERS: PCP Family Medicine; Visit Provider Ophthalmology
DX: H26.9 Unspecified cataract (principal); Z79.899 Other long term (current) drug therapy
CPT/HCPCS: 66984; V2632

== ENCOUNTER → 2022-02-14 10:58 | Outpatient (CLI) | payer MEDICARE, SELFPAY ==
--- NOTE | 2022-02-14 11:01 | MM_ITS ---
PROCEDURE INFORMATION: Exam: MG Bilateral Screening 3D Mammography Exam date and time: 02/14/2022 10:54 AM Age: 76 years old Clinical indication: Screening examination. No family history of breast cancer. TECHNIQUE: Imaging protocol: Bilateral Screening tomosynthesis and 2D mammography including computer-aided detection (CAD) when performed. COMPARISON: [facility] MM Dig screening mamm BI w/CAD 06/08/2017 9:43 AM FINDINGS: MAMMOGRAPHY: Breast composition: The breasts are heterogeneously dense, which may obscure small masses. Mass: No suspicious mass. Architectural distortion: None. Calcifications: No suspicious calcifications. Asymmetric density: None. Skin thickening: None. Axillary adenopathy: None. IMPRESSION: No mammographic evidence of malignancy. Annual screening is recommended unless otherwise clinically indicated. ASSESSMENT: BI-RADS Category 1: Negative
== END ==
PROVIDERS: PCP Family Medicine; Visit Provider Family Medicine
DX: Z12.31 Encounter for screening mammogram for malignant neoplasm of breast (principal)
CPT/HCPCS: 77063; 77067

== ENCOUNTER 2022-10-15 13:04 | Emergency (ER) | payer MEDICARE, SELFPAY ==
[2022-10-15 14:15] VITALS: BP 110/57; PULSE 65; RESP 20; TEMP 36.6; O2SAT 98; BMI 28.6
--- NOTE | 2022-10-15 14:52 | EXP.UTC ---
Discharge Plan Disposition Patient Disposition: Home, Self-Care Condition: Good Prescriptions Prescriptions: New clindamycin HCl 300 mg capsule 300 mg PO Q8H Qty: 30 0RF No Action losartan 50 mg tablet 50 mg PO BID warfarin 5 mg tablet 2.5 mg PO DAILY furosemide 40 mg tablet 40 mg PO DAILY atorvastatin 40 mg tablet 40 mg PO DAILY mecobalamin (vitamin B12) 1,000 mcg tablet,chewable 1,000 mcg PO DAILY cholecalciferol (vitamin D3) 50 mcg (2,000 unit) capsule 50 mcg PO DAILY spironolactone 25 mg tablet 25 mg PO Q OTHER DAY potassium chloride 10 mEq capsule, extended release 10 meq PO DAILY aspirin 81 mg tablet,delayed release (DR/EC) 81 mg PO DAILY metoprolol succinate 50 mg tablet extended release 24 hr 50 mg PO DAILY Patient Comments: one tablet in the morning, 1/2 tablet in the evening. Referrals Follow up/Referrals: Pedro Wing MD [Primary Care Provider] - See instructions Clinical Impressions Clinical Impression: Skin ulcer Qualifiers: Non-pressure ulcer stage: unspecified non-pressure ulcer stage Qualified Code(s): L98.499 - Non-pressure chronic ulcer of skin of other sites with unspecified severity Instructions Patient Instructions: DI for Pressure Injuries Discharge ED Provider: Kandy Crowell [facility] General Stated complaint: spot right below knee with discharge Mode of Arrival: Ambulatory Source of Information: Patient Limitations: No Limitations Time Seen by Provider: 10/15/22 14:52 Description of Symptoms (Recalled from Triage Doc. by RN): PATIENT C/O SORE TO RIGHT BKA FOR APPROX 3 WEEKS. SHE STATES SORE HAS BEEN DRAINING. SMALL OPEN AREA NOTED WITH SLOUGH, NO ACTIVE DRAINING AT THIS TIME HEENT Symptoms (Recalled from RN notes): No Resp Symptoms (Recalled from RN notes): No Skin Symptoms (Recalled from RN notes): Yes MS Symptoms (Recalled from RN notes): No Functional Status (Recalled from RN notes): WNL History of Present Illness Provider Complaint: Pt reports that she has developed a sore on her stump. She reports that when she sits she will have a lot of drainage that is more of a clear yellow. She states that she has been using Mupiricon cream to the site that she had from a previous sore. She states that she is having trouble getting this site to heal. Related Data Home Medications Medication Instructions Recorded Confirmed aspirin 81 mg tablet,delayed 81 mg PO DAILY pad 01/24/20 12/17/21 release atorvastatin 40 mg tablet 40 mg PO DAILY Cholesterol 08/02/20 12/17/21 cholecalciferol (vitamin D3) 50 50 mcg PO DAILY Supplement 08/02/20 12/17/21 mcg (2,000 unit) capsule furosemide 40 mg tablet 40 mg PO DAILY Heart failure 08/02/20 12/17/21 losartan 50 mg tablet 50 mg PO BID High blood pressure 08/02/20 12/17/21 mecobalamin (vitamin B12) 1,000 1,000 mcg PO DAILY Supplement 08/02/20 12/17/21 mcg chewable tablet warfarin 5 mg tablet 2.5 mg PO DAILY . 08/02/20 12/17/21 metoprolol succinate 50 mg 50 mg PO DAILY High blood pressure 09/04/20 12/17/21 tablet,extended release 24 hr potassium chloride 10 mEq 10 meq PO DAILY Supplement 09/04/20 12/17/21 capsule,extended release spironolactone 25 mg tablet 25 mg PO Q OTHER DAY Heart failure 09/05/20 12/17/21 Previous Rx's Medication Instructions Recorded clindamycin HCl 300 mg capsule 300 mg PO Q8H #30 caps 10/15/22 Allergies Allergy/AdvReac Type Severity Reaction Status Date / Time Penicillins Allergy Verified 10/15/22 14:25 Worker's Comp Is this a Worker's Comp case?: No [facility] Disclaimer: The information contained in this section may have been updated after the patient was seen, as this information can be updated by other users. Medical History (Updated 10/15/22 @ 15:18 by Kandy Crowell APRN) Gallbladder disease History of cataract History of stroke Osteoarthritis Surgical History (Reviewed 12/17/21 @ 07:12 by Matthew
[2022-10-15 15:08] VITALS: BP 110/57; PULSE 65; RESP 20; TEMP 36.6; O2SAT 98
== END 2022-10-15 15:23 | disposition home or self-care (01) ==
PROVIDERS: Emergency Provider Nurse Practitioner Family; PCP Family Medicine
DX: L97.919 Non-pressure chronic ulcer of unspecified part of right lower leg with unspecified severity (principal); M19.90 Unspecified osteoarthritis, unspecified site; I73.9 Peripheral vascular disease, unspecified
CPT/HCPCS: 87070; 87077; 87186; 87205; 99204; 99212; G0463

== ENCOUNTER 2023-11-10 18:01 | Emergency (ER) | payer MEDICARE, MEDICAID, SELFPAY ==
[2023-11-10 18:03] VITALS: BP 159/79; PULSE 77; RESP 20; TEMP 36.7; O2SAT 99; BMI 28.2
--- NOTE | 2023-11-10 18:16 | PC.NURSE ---
Dr. James at [facility] for pt eval
--- NOTE | 2023-11-10 18:17 | CT_ITS ---
PROCEDURE INFORMATION: Exam: CT Cervical Spine Without Contrast Exam date and time: 11/10/2023 8:04 PM Age: 78 years old Clinical indication: Injury or trauma; Fall; Blunt trauma; Additional info: New onset vertigo TECHNIQUE: Imaging protocol: Computed tomography of the cervical spine without contrast. Radiation optimization: All CT scans at this facility use at least one of these dose optimization techniques: automated exposure control; mA and/or kV adjustment per patient size (includes targeted exams where dose is matched to clinical indication); or iterative reconstruction. COMPARISON: CT HEAD/BRAIN WO CON 11/10/2023 7:54 PM FINDINGS: Bones: Osteopenia. Craniocervical alignment is normal. The occipital condyles are intact. The odontoid is intact. Moderate-severe osteoarthritic sclerosis and spurring at the atlantodens interval. No jumped or perched facets. Moderate multilevel bilateral osteoarthritic facet hypertrophy. No fractures. Slight 1-2 mm degenerative anterolisthesis C4-C5, C5-C6, and C6-C7. No blastic or lytic lesions. Moderate disc space narrowing with mild marginal spurring C6-C7. Mild marginal spurring C4-C5. No compressive soft disc protrusion or extrusion is evident by CT. No significant canal stenosis. There is left foraminal stenosis which is mild at C3-C4, moderate C4-C5, moderate C5-C6, moderate C6-C7. There is right foraminal stenosis which is moderate at C3-C4, mild at C4-C5. Lungs: Visualized pulmonary apices are clear. Thyroid: The visualized thyroid gland is unremarkable. Vasculature: Moderate calcific atherosclerosis in the right carotid bulb. Soft tissues: No acute soft tissue abnormalities. IMPRESSION: 1. No evidence of acute fracture or traumatic subluxation. 2. Osteopenia and osteoarthritic changes with bilateral foraminal stenoses detailed above.
--- NOTE | 2023-11-10 18:17 | XR_ITS ---
PROCEDURE INFORMATION: Exam: XR Chest Exam date and time: 11/10/2023 8:04 PM Age: 78 years old Clinical indication: Injury or trauma; Fall; Blunt trauma (contusions or hematomas); Additional info: Fall, weakness TECHNIQUE: Imaging protocol: Radiologic exam of the chest. Views: 1 view. COMPARISON: XA CL BOLUS SERGIO UNILAT AORTA 09/13/2020 9:30 AM FINDINGS: Lungs: Underlying interstitial lung markings. No consolidation. Pleural spaces: Unremarkable. No pleural effusion. No pneumothorax. Heart/Mediastinum: Unremarkable. No cardiomegaly. Bones/joints: Unremarkable. IMPRESSION: No acute findings.
--- NOTE | 2023-11-10 18:17 | CT_ITS ---
PROCEDURE INFORMATION: Exam: CT Head Without Contrast Exam date and time: 11/10/2023 7:54 PM Age: 78 years old Clinical indication: Injury or trauma; Fall; Blunt trauma (contusions or hematomas); Additional info: New onset vertigo, fall TECHNIQUE: Imaging protocol: Computed tomography of the head without contrast. Radiation optimization: All CT scans at this facility use at least one of these dose optimization techniques: automated exposure control; mA and/or kV adjustment per patient size (includes targeted exams where dose is matched to clinical indication); or iterative reconstruction. COMPARISON: No relevant prior studies available. FINDINGS: Brain: Moderate generalized cerebral/cerebellar atrophy. Moderate bilateral white matter hypodensities which are nonspecific but most commonly associated with chronic microvascular ischemia in this age group. The IACs are grossly normal. No extra-axial fluid collections. Mild prominence of the peripheral CSF spaces, related to generalized atrophy. No evidence of acute intracranial hemorrhage. No CT evidence of large territory acute or subacute intracranial ischemia/infarct. Small focus of chronic cortical/subcortical encephalomalacia in the high right frontal distribution consistent with a small chronic infarct. No intracranial mass lesions. No midline shift or herniation. Cerebral ventricles: Slight compensatory ventriculomegaly secondary to central atrophy. Pituitary gland and sella: The sella is grossly normal. Paranasal sinuses: Mucosal thickening in the maxillary sinuses suggesting mild chronic sinus inflammatory disease. No fluid levels. The other paranasal sinuses are clear. Mastoid air cells: Partially opacified bilateral mastoid air cells suggesting mild mastoiditis. No gross coalescence. Orbital cavities: No acute intraorbital findings. Prior bilateral ocular cataract surgery. Bones: No acute osseous findings. Hyperostosis frontalis interna incidentally noted. Soft tissues: No acute soft tissue findings. Vasculature: Mild calcific atherosclerosis. IMPRESSION: 1. No acute intracranial process. No intracranial hemorrhage or mass effect. 2. Atrophy and microvascular changes consistent with advanced age. 3. Small chronic infarct in the right frontal lobe. 4. Mild bilateral chronic maxillary sinusitis and mild bilateral mastoiditis.
--- NOTE | 2023-11-10 18:17 | CT_ITS ---
PROCEDURE INFORMATION: Exam: CTA Head With Contrast, Arteriography Exam date and time: 11/10/2023 8:07 PM Age: 78 years old Clinical indication: Injury or trauma; Fall; Blunt trauma; Head and neck; Additional info: New onset vertigo TECHNIQUE: Imaging protocol: Computed tomographic angiography of the head with contrast. Exam focused on the arteries. 3D rendering (Not supervised by radiologist): MIP and/or 3D reconstructed images were created by the technologist. Radiation optimization: All CT scans at this facility use at least one of these dose optimization techniques: automated exposure control; mA and/or kV adjustment per patient size (includes targeted exams where dose is matched to clinical indication); or iterative reconstruction. Contrast material: ISOVUE 370; Contrast volume: 80 ml; Contrast route: INTRAVENOUS (IV); COMPARISON: CT HEAD/BRAIN WO CON 11/10/2023 7:54 PM FINDINGS: ANTERIOR CIRCULATION: Right internal carotid artery: The right ICA petrous segment is unremarkable. Cavernous and supraclinoid segments demonstrate mild calcific plaque without stenosis. Right middle cerebral artery: Unremarkable. No occlusion or significant stenosis. No aneurysm. Right anterior cerebral artery: Unremarkable. No occlusion or significant stenosis. No aneurysm. The anterior communicating artery is unremarkable. Left internal carotid artery: The left ICA petrous segment is unremarkable. Mild calcific plaque in the cavernous segment without stenosis. 2 mm aneurysm projects superior medially from the ophthalmic artery origin at the left ICA supraclinoid segment on series 7, images [id number]. No rupture. Left middle cerebral artery: Unremarkable. No occlusion or significant stenosis. No aneurysm. Left anterior cerebral artery: Unremarkable. No occlusion or significant stenosis. No aneurysm. POSTERIOR CIRCULATION: Right vertebral artery: Unremarkable. No occlusion or significant stenosis. No aneurysm. Left vertebral artery: Unremarkable. No occlusion or significant stenosis. No aneurysm. Basilar artery: Unremarkable. No occlusion or significant stenosis. No aneurysm. Right posterior cerebral artery: Normal variant persistent origin with hypoplastic right P1 segment. No occlusion or significant stenosis. No aneurysm. Left posterior cerebral artery: Small left posterior communicating artery present No occlusion or significant stenosis. No aneurysm. Veins: The dural venous sinuses and major cortical veins enhance appropriately without evidence of thrombosis. Brain: No enhancing brain lesions or vascular malformations are identified. Small chronic cortical/subcortical infarct in the high right frontal distribution again noted. IMPRESSION: 1. No evidence of large vessel occlusion or significant stenosis. 2. 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 No rupture.
--- NOTE | 2023-11-10 18:17 | CT_ITS ---
PROCEDURE INFORMATION: Exam: CTA Neck With Contrast Exam date and time: 11/10/2023 8:07 PM Age: 78 years old Clinical indication: Injury or trauma; Fall; Blunt trauma; Head and neck; Additional info: New onset vertigo TECHNIQUE: Imaging protocol: Computed tomographic angiography of the neck with contrast. Exam focused on the cervical segments of the vasculature. 3D rendering (Not supervised by radiologist): MIP and/or 3D reconstructed images were created by the technologist. Radiation optimization: All CT scans at this facility use at least one of these dose optimization techniques: automated exposure control; mA and/or kV adjustment per patient size (includes targeted exams where dose is matched to clinical indication); or iterative reconstruction. Contrast material: ISOVUE 370; Contrast volume: 80 ml; Contrast route: INTRAVENOUS (IV); COMPARISON: CT CERVICAL SPINE WO CON 11/10/2023 8:04 PM FINDINGS: Right common carotid artery: Moderate proximal tortuosity. No stenosis. No dissection or occlusion. Right internal carotid artery: Moderate calcific plaque in the right carotid bulb. Moderate tortuosity in the right ICA mid cervical segment with kinking producing mild stenosis of less than 50%. No dissection or occlusion. Right external carotid artery: Normal. No stenosis. No dissection or occlusion. Left common carotid artery: Mild tortuosity. No stenosis. No dissection or occlusion. Left internal carotid artery: Moderate mid segment tortuosity. No stenosis. No dissection or occlusion. Left external carotid artery: Normal. No stenosis. No dissection or occlusion. Right vertebral artery: Normal. No stenosis. No dissection or occlusion. Left vertebral artery: Mild ostial calcific plaque. Mild proximal tortuosity. No stenosis. No dissection or occlusion. Brachiocephalic artery: The brachiocephalic artery demonstrates mild calcific plaque without stenosis. Right subclavian artery: The right subclavian artery demonstrates mild calcific plaque without stenosis. Left subclavian artery: The left subclavian artery demonstrates mild calcific plaque without stenosis. Aorta: The visualized aortic arch demonstrates mild-moderate ectasia and calcific plaque without evidence of dissection or gross aneurysm. Thyroid: The thyroid gland is unremarkable. Soft tissues: No significant soft tissue swelling or hematoma. Bones/joints: No acute osseous abnormalities are identified. Lungs: Patchy atelectasis in the upper lung antonio bilaterally. There is a 5 mm pulmonary nodule in the posterior left upper lobe series 3, image 12. For patients at low risk (minimal or absent history of smoking and of other known risk factors), no routine follow-up is indicated. For patients at high risk (history of smoking or of other known risk factors), consider optional CT at 12 months. (Mc et al., Fleischner Society, 2017). IMPRESSION: 1. No evidence of arterial occlusion, significant stenosis, dissection, or aneurysm/pseudoaneurysm. 2. There is a 5 mm pulmonary nodule in the posterior left upper lobe. Please see recommendations above. REFERENCES: NASCET CRITERIA. The degree of stenosis in the cervical segment of the internal carotid artery is based on NASCET criteria. Normal is no stenosis. Mild is less than 50% stenosis. Moderate is 50-69% stenosis. Severe is 70% to 99% stenosis. Total occlusion is no detectable patent lumen.
--- NOTE | 2023-11-10 18:17 | XR_ITS ---
PROCEDURE INFORMATION: Exam: XR Pelvis Exam date and time: 11/10/2023 8:04 PM Age: 78 years old Clinical indication: Injury or trauma; Fall; Blunt trauma (contusions or hematomas); Bilateral; Pelvic region TECHNIQUE: Imaging protocol: Radiologic exam of the pelvis. Views: 1 or 2 view. COMPARISON: No relevant prior studies available. FINDINGS: Bones/joints: No acute fracture. Degenerative changes of both hips and sacroiliac joints. Soft tissues: Unremarkable. IMPRESSION: No acute findings.
--- NOTE | 2023-11-10 18:23 | ECG_ITS ---
APPROVED REPORT Exam: Resting ECG HR:85 bpm ECG Measurements Heart Rate 85 AXES QRSd 86 QRS 0 QT 349 T 55 QTc 391 Conclusion ATRIAL FIBRILLATION LOW QRS VOLTAGE IN PRECORDIAL LEADS [QRS DEFLECTION < 1.0 mV IN CHEST LEADS] ABNORMAL RHYTHM ECG Electronically signed by : CHIARA TREVINO, 11/10/2023 19:06:56
--- NOTE | 2023-11-10 18:29 | ED_ITS ---
Discharge Plan Disposition Patient Disposition: Home, Self-Care Condition: Good Prescriptions Prescriptions: New meclizine 25 mg tablet 25 mg PO QID PRN (Reason: dizziness) Qty: 20 0RF cefdinir 300 mg capsule 300 mg PO BID 10 Days Qty: 20 0RF No Action losartan 50 mg tablet 50 mg PO BID warfarin 5 mg tablet 2.5 mg PO DAILY furosemide 40 mg tablet 40 mg PO DAILY atorvastatin 40 mg tablet 40 mg PO DAILY mecobalamin (vitamin B12) 1,000 mcg tablet,chewable 1,000 mcg PO DAILY cholecalciferol (vitamin D3) 50 mcg (2,000 unit) capsule 50 mcg PO DAILY spironolactone 25 mg tablet 25 mg PO Q OTHER DAY potassium chloride 10 mEq capsule, extended release 10 meq PO DAILY aspirin 81 mg tablet,delayed release (DR/EC) 81 mg PO DAILY metoprolol succinate 50 mg tablet extended release 24 hr 50 mg PO DAILY Patient Comments: one tablet in the morning, 1/2 tablet in the evening. clindamycin HCl 300 mg capsule 300 mg PO Q8H Qty: 30 0RF Referrals Follow up/Referrals: Pedro Wing MD [Primary Care Provider] - See instructions Activity Restrictions/Add. Instructions Additional Instructions/Restrictions: You were evaluated in the emergency department today. 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 Follow-up closely with your primary care provider for reassessment of lung nodule and high potassium. He also have a small incidental brain aneurysm which should not be of any concern at this time. Please follow- up with your primary care provider for reassessment of this as well. Return to the emergency department for new or worsening symptoms. Clinical Impressions Clinical Impression: Acute UTI, Incidental pulmonary nodule, Acute hyperkalemia, Vertigo Instructions Patient Instructions: DI for Vertigo, DI for Urinary Tract Infection (UTI) Print Language Print Language: [place] Discharge ED Provider: Treasure James General Adult HPI General Chief complaint: Dizziness Stated complaint: Dizziness,shakes Time Seen by Provider: 11/10/23 18:10 Mode of Arrival: Wheelchair Source of Information: Patient and Relative Limitations: No Limitations Description of Symptoms (Recalled from ER Triage Doc. by RN): pt complains of dizziness for one week and nausea, today she got her foot tripped up in bathroom rug and landed on butt, pt denies any pain but does take eliquis for afib, pt states movementmakes it worse and like the room is spinning History of Present Illness HPI narrative: This patient is a 78-year-old female with a history of hypertension, hyperlipidemia, atrial fibrillation on Eliquis, PAD, prior CVA, prior right BKA presented to the emergency department for evaluation with concern for dizziness and nausea. Patient reports over the last week, she is felt very dizzy and nauseated. She describes this dizziness as if the room is spinning. The symptoms are only intermittent and seem to be worse with position changes. Prior to arrival, she actually had a mechanical ground-level fall in which she fell down onto her butt. She nearly syncopized whenever her daughter was trying to help her up, as she states she became very dizzy with position change. She did not hit her head or lose consciousness during the actual fall. No pain or injury as result of the fall. She states that something like this happen before in the past when she had a sinus infection. She denies any fevers, chills, significant visual disturbance, numbness, tingling, unilateral weakness, or other concerns. Related Data Home Medications ?Medication ?Instructions ?Recorded ?Confirmed aspirin 81 mg tablet,delayed 81 mg PO DAILY pad 01/24/20 12/17/21 release atorvastatin 40 mg tablet 40 mg PO DAILY Cholesterol 08/02/20 12/17/21 cholecalciferol (vitamin D3) 50 50 mcg PO DAILY Supplement 08/02/20 12/17/21 mcg (2,000 unit) capsule furosemide 40 mg tablet 40 mg PO DAILY Heart failure 08/02/20 12/17/21 losartan 50 mg tablet 50 mg PO BID High blood pressure 08/02/20 12/17/21 mecobalamin (vitamin B12) 1,000 1,000 mcg PO DAILY Supplement 08/02/20 12/17/21 mcg chewable tablet warfarin 5 mg tablet 2.5 mg PO DAILY . 08/02/20 12/17/21 metoprolol succinate 50 mg 50 mg PO DAILY High blood pressure 09/04/20 12/17/21 tablet,extended release 24 hr potassium chloride 10 mEq 10 meq PO DAILY Supplement 09/04/20 12/17/21 capsule,extended release spironolactone 25 mg tablet 25 mg PO Q OTHER DAY Heart failure 09/05/20 12/17/21 Previous Rx's ?Medication ?Instructions ?Recorded clindamycin HCl 300 mg capsule 300 mg PO Q8H #30 caps 10/15/22 cefdinir 300 mg capsule 300 mg PO BID 10 days #20 caps 11/10/23 meclizine 25 mg tablet 25 mg PO QID PRN dizziness #20 tabs 11/10/23 Allergies Allergy/AdvReac Type Severity Reaction Status Date / Time Penicillins Allergy Verified 10/15/22 14:25 [facility] Disclaimer: The information contained in this section may have been updated after the patient was seen, as this information can be updated by other users. Medical History Osteoarthritis History of stroke History of cataract Gallbladder disease Surgical History Hx of amputation below knee Hx of cataract surgery Hx of umbilical hernia repair Hx of breast biopsy History of colonoscopy History of cholecystectomy Family History Other Family history of asthma Family history of cancer Family history of diabetes mellitus type II Family history of gallbladder disease Family history of hypothyroidism Lung cancer Social History Smoking Status: Never smoker second hand exposure: No alcohol intake: never substance use type: denies use current occupational status: retired Travel in the last 8 weeks: None household members: spouse housing: house current occupational exposures/hazards: No caffeine: Yes special rosio needs: No agree to transfusion: No do you feel safe at home: Yes victim of physical abuse: No victim of emotional abuse: No victim of sexual abuse: No would you like helpful sources: No ROS Obtained: Yes All systems reviewed & no additional complaints except as documented Physical Exam General General appearance: alert, in no apparent distress and obese Head Head exam: atraumatic and normocephalic Eye Eye exam: Present normal appearance, PERRL and EOMI; Absent nystagmus ENT ENT exam: Present normal exam, normal oropharynx, mucous membranes moist and normal external ear exam Neck Neck exam: Present normal inspection, full ROM and trachea midline; Absent tenderness Chest Chest inspection: Present normal inspection and symmetric chest wall rise; Absent tenderness Respiratory Respiratory exam: Present normal lung sounds bilaterally; Absent respiratory distress, wheezes, stridor or accessory muscle use Cardiovascular Cardiovascular exam: Present regular rate and normal rhythm Abdominal Exam Abdominal exam: Present soft; Absent distention, tenderness or guarding Extremities Exam Extremities exam: Present normal inspection, full ROM and normal capillary refill; Absent tenderness or edema Back Exam Back exam: Present normal inspection and full ROM; Absent tenderness Neurological Exam Neurological exam: Present alert, oriented X3, CN II-XII intact, normal gait and other (Normal coordination, NIHSS 0); Absent motor sensory deficit Psychiatric Psychiatric exam: Present normal affect and normal mood Skin Skin exam: Present warm and dry Medical Decision Making Medical Records Medical records reviewed: Yes I reviewed the patient's medical records. [place] Inquiry Pt receiving controlled substance: No Vital Signs: 11/10/23 18:03 11/10/23 21:28 Temperature 98.1 F 98.2 F Temperature Source Oral Oral Pulse Rate 65 Pulse Rate [Right Radial] 77 Respiratory Rate 20 18 Blood Pressure 127/75 Blood Pressure [Right Arm] 159/79 H Blood Pressure Mean [Right Arm] 105 02 Sat by Pulse Oximetry 99 Oxygen Delivery Method Room Air Lab Data Lab results reviewed: Yes I reviewed the patient's lab results. Lab Results 11/10/23 18:30: SARS-CoV-2 (PCR) Not detected, Influenza A Untype (PCR) Not detected, Influenza Type B (PCR) Not detected 11/10/23 18:40: WBC 12.1 H, RBC 4.35, Hgb 12.9, Hct 42.3, MCV 97.4, MCH 29.7, M CHC 30.5 L, RDW 14.2, Plt Count 285, MPV 8.1, Neut % (Auto) 80.6 H, Lymph % (Auto) 12.1, Ocean % (Auto) 5.7, Eos % (Auto) 1.1, Baso % (Auto) 0.5, Neut # (Auto) 9.7 H, Lymph # (Auto) 1.5, Ocean # (Auto) 0.7, Eos # (Auto) 0.1, Baso # (Auto) 0.1, PT 10.9, INR 0.97, APTT 26.5, Sodium 133 L, Potassium 5.7 H, Chloride 106, Carbon Dioxide 22, Anion Gap 10.7, BUN 37 H, Creatinine 1.30 H, Estimated Creat Clear 44, Estimated GFR 40 L, Est GFR ( Amer) 48 L, G lucose 131 H, Calcium 9.3, Magnesium 1.7, Total Bilirubin 0.4, AST 30, ALT 25, Alkaline Phosphatase 98, Troponin I < 0.01, Total Protein 6.8, Albumin 3.6, Globulin 3.2, Albumin/Globulin Ratio 1.1, Lipase 150, TSH 3.48, Thyroxine (T4) 7.7 11/10/23 19:50: Urine Color Yellow, Urine Appearance Clear, Urine pH 6.5, Ur Specific [place] 1.010, Urine Protein Negative, Urine Glucose (UA) Negative, Urine Ketones Negative, Urine Blood Trace-i, Urine Nitrate Positive, Urine Bilirubin Negative, Urine Urobilinogen 0.2, Ur Leukocyte Esterase 3+ A, Urine RBC 3-5, Urine WBC 50-100, Ur Squamous Epith Cells 20-50, Urine Bacteria 4+ 11/10/23 18:40 11/10/23 18:40 Orders (Tests/Meds): ED MEDICATIONS Discontinued Medications Generic Name Dose Route Start Last Admin Trade Name Freq PRN Reason Stop Dose Admin Lactated Ringer's 1,000 mls @ 999 mls/hr 11/10/23 19:32 11/10/23 19:41 Lactated Ringer's 1000 Ml Bag IV 11/10/23 20:32 999 mls/hr .Q1H1M ONE Administration Ceftriaxone Sodium 2 gm/ 100 mls @ 200 mls/hr 11/10/23 21:13 11/10/23 21:20 Sodium Chloride IV 11/10/23 21:42 200 mls/hr ONCE ONE Administration Iopamidol 80 ml 11/10/23 20:01 11/10/23 20:02 Iopamidol-370 (76%);100ml Bottle IV 11/10/23 20:02 80 ml ONCE ONE Administration Meclizine HCl 25 mg 11/10/23 18:26 11/10/23 18:43 Meclizine 25mg Tablet PO 11/10/23 18:27 25 mg ONCE ONE Administration Sodium Chloride 10 ml 11/10/23 20:01 11/10/23 20:02 Sodium Chloride 0.9% 10ml Syr (Rad Only) IV 11/10/23 20:02 10 ml ONCE ONE Administration Sodium Chloride 50 ml 11/10/23 20:01 11/10/23 20:02 0.9 % Sodium Chloride 50 Ml Vial IV 11/10/23 20:02 50 ml ONCE ONE Administration ORDERS Category Date Time Status CT angio head Stat Cat Scan 11/10/23 18:[address] angio neck Stat Cat Scan 11/10/23 18:[address] cervical spine wo con Stat Cat Scan 11/10/23 18:[address] head/brain wo con Stat Cat Scan 11/10/23 18:17 Completed CXR --portable [XR chest portable] Stat Exams 11/10/23 18:17 Completed Pelvis XR 1-2 views [XR pelvis 1-2V] Stat Exams 11/10/23 18:17 Completed Activated Partial Thrombo Time Stat Lab 11/10/23 18:40 Completed Complete Blood Count Auto Diff Stat Lab 11/10/23 18:40 Completed Comprehensive Metabolic Panel Stat Lab 11/10/23 18:40 Completed Lipase Stat Lab 11/10/23 18:40 Completed Magnesium Stat Lab 11/10/23 18:40 Completed Prothrombin Time INR Stat Lab 11/10/23 18:40 Completed Rapid PCR Covid and Flu A/B Stat Lab 11/10/23 18:30 Completed T4 (Thyroxine) Stat Lab 11/10/23 18:40 Completed TSH [Thyroid Stimulating Hormone] Stat Lab 11/10/23 18:40 Completed Trop I [Troponin I] Stat Lab 11/10/23 18:40 Completed UA [Urinalysis and Microscopic] Stat Lab 11/10/23 19:50 Completed Urine Culture Stat Micro 11/10/23 19:50 Results ECG Data Tracing #1: I reviewed this ECG and interpreted as documented below: Atrial fibrillation with a ventricular rate of [address] changes concerning for ischemia. ECG initial impression date: 11/10/23 ECG initial impression time: 18:25 Medical Decision Narrative: In summary, this patient is a 78-year-old female presenting to the Emergency Department for evaluation of dizziness and nausea as well as a fall just prior to arrival. Differential diagnoses considered include but are not limited to CVA, BPPV, labyrinthitis, vestibular neuritis, sinusitis, dehydration, electrolyte derangements, dysrhythmia, traumatic injury from fall. Ruling out the most morbid conditions drove assessment. It should be noted patient's history includes hypertension, hyperlipidemia, atrial fibrillation which may or may not be at goal therapy. This complicates all aspects of care by increasing patient's risk for morbidity. On exam, the patient is lying in bed in no acute distress with no focal neurologic deficits. NIHSS is 0. Exam is reassuring. Workup included broad lab evaluation to evaluate for infectious, metabolic, cardiac causes of the patient's symptoms as well as CT head, C-spine, chest x-ray, pelvic x-ray to evaluate for traumatic injuries and CT angiogram of the head and neck to evaluate for potential CVA/vascular anomaly. Based on the intermittent symptoms and reassuring exam, I suspect this is likely a peripheral vertigo, but will assess with scans given that the patient has a history of CVA and is high risk. She was given oral meclizine to assess for symptomatic improvement. EKG obtained is reassuring with known atrial fibrillation but no acute ST changes concerning for ischemia. I independently interpreted CT scans prior to the radiologist read and noted no obvious acute fracture or space occupying intracranial lesions. Please see their read for final interpretation. Labs were obtained that demonstrated mild hyperkalemia without EKG changes. Urine is concerning for infection. Patient was given a bolus of IV fluids as well as IV rocephin. On reassessment, patient had great improvement after administration of interventions above. She is resting comfortably and remains neurologically intact with normal vitals on cardiac telemetry. I considered admission for continued monitoring, but given reassuring workup and exam I feel the patient is appropriate for discharge home with prescriptions for cefdinir and meclizine. She was notified of incidental findings on scan including brain aneurysm as well as lung nodule. She was given instructions for close follow up and strict return precautions prior to discharge. Critical Care Critical Care Time Critical Care Time: No
[2023-11-10] MEDS: MECLIZINE 25MG TABLET 25 MG PO (18:43)
[2023-11-10 18:53] LABS: Coronavirus 19, PCR Not Detected (NotDetected); Influenza A, PCR Not Detected (NotDetected); Influenza B, PCR Not Detected (NotDetected)
[2023-11-10 18:54] LABS: Basophils # 0.1 K/mm3 (0-0.2); Basophils % 0.5 % (0.1-2.0); Eosinophils # 0.1 K/mm3 (0.0-0.4); Eosinophils % 1.1 % (0.1-12.0); Hematocrit 42.3 % (37.0-47.0); Hemoglobin 12.9 g/dL (12.2-16.2); Lymphocytes # 1.5 K/mm3 (0.7-4.5); Lymphocytes % 12.1 % (10-50); Mean Corpuscular HGB Conc 30.5 g/dL (31.8-35.4); Mean Corpuscular Hemoglobin 29.7 pg (27.0-31.2); Mean Corpuscular Volume 97.4 fl (81-99); Mean Platelet Volume 8.1 fl (7.4-10.4); Monocytes # 0.7 K/mm3 (0.1-1.0); Monocytes % 5.7 % (1.7-9.3); Neutrophils # 9.7 K/mm3 (1.8-7.8); Neutrophils % 80.6 % (37.0-80.0); Platelet Count 285 K/mm3 (142-424); Red Blood Count 4.35 M/mm3 (4.20-5.40); Red Cell Distribution Width 14.2 % (11.5-17.5); White Blood Count 12.1 K/mm3 (4.8-10.8)
[2023-11-10 19:08] LABS: Activated Partial Thrombo Time 26.5 seconds (22.8-30.6); Alanine Aminotransferase 25 U/L (12-78); Albumin Level 3.6 g/dl (3.5-5.0); Albumin/Globulin Ratio 1.1 (1.1-1.8); Alkaline Phosphatase 98 U/L (38-126); Anion Gap 10.7 mEq/L (5-15); Aspartate Amino Transferase 30 U/L (14-36); Bilirubin,Total 0.4 mg/dl (0.2-1.3); Blood Urea Nitrogen 37 mg/dl (7-17); Calcium 9.3 mg/dl (8.4-10.2); Carbon Dioxide 22 mmol/L (22.0-30.0); Chloride 106 mmol/L (98-107); Creatinine Clearance Estimated 44 mL/min (50-200); Estimated Glomerular Filt Rate 40 ml/min (>60); GFR (African American) 48 ML/MIN (>60); Globulin 3.2 g/dL (1.3-3.2); Glucose 131 mg/dl (74-100); INR 0.97 (0.9-1.1); Lipase 150 U/L (23-300); Magnesium 1.7 mg/dl (1.6-2.3); Potassium 5.7 mmoL/L (3.5-5.1); Prothrombin Time 10.9 seconds (10.1-12.5); Sodium 133 mmol/L (136-145); Total Protein,Serum 6.8 g/dl (6.3-8.2)
[2023-11-10 19:26] LABS: T4 (Thyroxine) 7.7 ug/dl (5.53-11.0)
[2023-11-10 19:30] LABS: Troponin I < 0.01 ng/ml (0.00-0.034)
[2023-11-10 19:40] LABS: Thyroid Stimulating Hormone 3.48 uIU/mL (0.465-4.68)
[2023-11-10] MEDS: LACTATED RINGERS 1000ML 1,000 ML 999 ML IV (19:41)
[2023-11-10 19:57] LABS: Microscopic, Urine URINE MICROSCOPIC (MICROSCOPIC)
[2023-11-10 20:00] LABS: Appearance,Urine CLEAR (Clear); Bilirubin,Urine Negative (Negative); Blood, Urine TRACE-I (Negative); Color,Urine YELLOW (Yellow); Glucose,Urine (UA) Negative (Negative); Ketones,Urine Negative (Negative); Leukocyte Esterase,Urine 3+ (Negative); Nitrate,Urine POSITIVE (Negative); PH,Urine 6.5 (5.0-8.5); Protein,Urine Negative (Negative); Urobilinogen,Urine 0.2 EU/dl (0.2)
[2023-11-10] MEDS: SODIUM CHLORIDE 0.9% 10ML SYR (RAD ONLY) 10 ML IV (20:02)
[2023-11-10] MEDS: 0.9 % SODIUM CHLORIDE 50 ML VIAL IV (20:02)
[2023-11-10] MEDS: IOPAMIDOL-370 (76%);100ML BOTTLE 80 ML IV (20:02)
[2023-11-10 20:21] LABS: Bacteria,Urine 4+ /lpf; Squamous Epithelial Cell,Urine 20-50 #/hpf (0-5); WBC,Urine 50-100 #/hpf (0-3)
[2023-11-10] MEDS: CEFTRIAXONE SODIUM 2 GM in 0.9 % SODIUM CHLORIDE 100 ML IV (21:20)
[2023-11-10 21:28] VITALS: BP 127/75; PULSE 65; RESP 18; TEMP 36.8; O2SAT 98
== END 2023-11-10 21:31 | disposition home or self-care (01) ==
PROVIDERS: Emergency Provider Emergency Medicine; PCP Family Medicine
DX: N39.0 Urinary tract infection, site not specified (principal); B96.29 Other Escherichia coli [E. coli] as the cause of diseases classified elsewhere; E87.5 Hyperkalemia; R42 Dizziness and giddiness; R91.1 Solitary pulmonary nodule; R11.0 Nausea; I48.0 Paroxysmal atrial fibrillation; Z79.01 Long term (current) use of anticoagulants; I10 Essential (primary) hypertension; E78.5 Hyperlipidemia, unspecified
CPT/HCPCS: 70450; 70496; 70498; 71045; 72125; 72170; 80053; 81001; 83690; 83735; 84436; 84443; 84484; 85025; 85610; 85730; 87086; 87088; 87186; 87636; 93005; 96361; 96365; 99285; J0696; J7120; Q9967

== ENCOUNTER 2023-11-11 12:48 | Observation (INO) | payer MEDICARE, MEDICAID, SELFPAY ==
[2023-11-11] VITALS (11 sets, daily range): BP systolic 115–169; BP diastolic 54–89; PULSE 62–94; RESP 15–20; TEMP 36.6–36.8; O2SAT 95–100; BMI 30.6; BMI 29.2
--- NOTE | 2023-11-11 12:58 | HMH.EDGENADL ---
Discharge Plan Disposition Patient Disposition: Admitted Discharge ED Provider: Gustavo Whitfield Adult HPI General Chief complaint: Dizziness Stated complaint: shaking, dizzy, falling asleep Time Seen by Provider: 11/11/23 12:57 History of Present Illness HPI narrative: The patient presents with a chief complaint of recurrent episodes of dizziness, lightheadedness, and brief unresponsiveness lasting less than a minute. These episodes began yesterday, with the first noticeable event occurring after a fall due to lightheadedness. The patient denies any prior history of similar episodes. The patient reports intermittent chest pain that resolves spontaneously and pain around the eyes. The patient denies any current chest pain or headache. The patient has a history of a mild stroke and is on blood thinners. The patient reports palpitations during these episodes but denies any known history of irregular heartbeats. The patient mentions a recent change in medication approximately six weeks ago, switching from a previous medication to a new one ([place]). The patient started feeling unwell after initiating the new medication. The patient denies any fever, chills, or abdominal pain. The patient has no history of seizures and is unsure if they lost consciousness during the fall. The patient reports experiencing several episodes while coming to the hospital last night. The episodes are described as brief, lasting less than a minute, with shaking that reminds the caregiver of a seizure. The patient remembers feeling dizzy before the episodes but cannot recall the events fully. The patient's caregiver notes that the patient had an episode about 30 minutes prior to the current visit. The patient denies any abdominal pain upon palpation. Please note that above description of symptoms, in this electronic medical record under categorization of recalled from ER triage doctor by RN are reflective of an initial nursing assessment, however, is not reflective of my full history and physical exam that was personally taken and clarified. Consequentially, this preceding description of symptoms, which may include the patient's categorized chief complaint in the EMR, do not reflect my personal clinical impression, and the ultimate description of history of present illness and patient stated complaints should be deferred to this section of the note. Unless stated otherwise or congruent with this section of the note, additional signs, symptoms, or incongruence should be interpreted as inaccurate with my clinical impression. Related Data Home Medications ?Medication ?Instructions ?Recorded ?Confirmed atorvastatin 40 mg tablet 40 mg PO HS 08/02/20 11/12/23 cholecalciferol (vitamin D3) 50 50 mcg PO DAILY 08/02/20 11/11/23 mcg (2,000 unit) capsule losartan 50 mg tablet 50 mg PO BID 08/02/20 11/11/23 mecobalamin (vitamin B12) 1,000 1,000 mcg PO DAILY 08/02/20 11/11/23 mcg chewable tablet metoprolol succinate 50 mg 50 mg PO DAILY 09/04/20 11/11/23 tablet,extended release 24 hr spironolactone 25 mg tablet 25 mg PO Q48H 09/05/20 11/12/23 apixaban 5 mg tablet (Eliquis) 5 mg PO BID 11/11/23 11/11/23 Previous Rx's ?Medication ?Instructions ?Recorded cefdinir 300 mg capsule 300 mg PO BID 10 days #20 caps 11/10/23 meclizine 25 mg tablet 25 mg PO QID PRN dizziness #20 tabs 11/10/23 Allergies Allergy/AdvReac Type Severity Reaction Status Date / Time Penicillins Allergy Verified 10/15/22 14:25 [facility] Disclaimer: The information contained in this section may have been updated after the patient was seen, as this information can be updated by other users. Medical History (Updated 11/12/23 @ 11:55 by Nicole Crane APRN) Amputated right leg PAD (peripheral artery disease) HTN (hypertension) CVA (cerebral vascular accident) HLD (hyperlipidemia) Syncope A-fib History of atrial fibrillation Osteoarthritis History of stroke History of cataract [place]
--- NOTE | 2023-11-11 13:08 | ECG_ITS ---
APPROVED REPORT Exam: Resting ECG HR:76 bpm ECG Measurements Heart Rate 76 AXES QRSd 77 QRS 13 QT 365 T 56 QTc 396 Conclusion ATRIAL FIBRILLATION LOW QRS VOLTAGE IN PRECORDIAL LEADS [QRS DEFLECTION < 1.0 mV IN CHEST LEADS] ABNORMAL RHYTHM ECG Electronically signed by : AMISHA REYEZ, 11/13/2023 23:24:24
--- NOTE | 2023-11-11 14:34 | CT_ITS ---
FINAL REPORT TECHNIQUE: Axial CT images were performed through the head. Coronal reformatted images were submitted. This study was performed with techniques to keep radiation doses as low as reasonably achievable (ALARA). Individualized dose reduction techniques using automated exposure control or adjustment of mA and/or kV according to the patient's size were employed. CLINICAL HISTORY: [place], syncope, fall COMPARISON: 11/10/2023 FINDINGS: There is moderate atrophy with proportional ventriculomegaly. There is patchy decreased attenuation in the deep white matter. Localized encephalomalacia is seen in the posterior right frontal lobe. Findings are stable since previous. There is no evidence of hemorrhage. There is no mass or edema identified. There is no abnormal extra-axial fluid seen. There is mucoperiosteal thickening in both maxillary sinuses and mild mucoperiosteal thickening in the mastoid air cells. IMPRESSION: Atrophy and chronic changes, stable since prior. Chronic maxillary and mastoid sinusitis. Reviewed, Interpreted and Dictated by Johny Abdi MD Transcribed by Acacia Estrella Authenticated and [facility]
[2023-11-11 14:48] LABS: Alanine Aminotransferase 22 U/L (12-78); Albumin Level 3.9 g/dl (3.5-5.0); Albumin/Globulin Ratio 1.1 (1.1-1.8); Alkaline Phosphatase 81 U/L (38-126); Anion Gap 10.4 mEq/L (5-15); Aspartate Amino Transferase 43 U/L (14-36); Bilirubin,Total 0.6 mg/dl (0.2-1.3); Blood Urea Nitrogen 27 mg/dl (7-17); Calcium 9.4 mg/dl (8.4-10.2); Carbon Dioxide 26 mmol/L (22.0-30.0); Chloride 106 mmol/L (98-107); Creatinine Clearance Estimated 56 mL/min (50-200); Estimated Glomerular Filt Rate 48 ml/min (>60); GFR (African American) 58 ML/MIN (>60); Globulin 3.5 g/dL (1.3-3.2); Glucose 115 mg/dl (74-100); Lipase 102 U/L (23-300); Magnesium 1.8 mg/dl (1.6-2.3); Phosphorous 4.2 mg/dl (2.5-4.5); Potassium 5.4 mmoL/L (3.5-5.1); Sodium 137 mmol/L (136-145); Total Protein,Serum 7.4 g/dl (6.3-8.2)
[2023-11-11 14:54] LABS: Basophils # 0.1 K/mm3 (0-0.2); Basophils % 0.6 % (0.1-2.0); Eosinophils # 0.1 K/mm3 (0.0-0.4); Eosinophils % 0.7 % (0.1-12.0); Hematocrit 42.4 % (37.0-47.0); Hemoglobin 13.2 g/dL (12.2-16.2); Lymphocytes # 1.2 K/mm3 (0.7-4.5); Lymphocytes % 10.6 % (10-50); Mean Corpuscular HGB Conc 31.2 g/dL (31.8-35.4); Mean Corpuscular Hemoglobin 29.7 pg (27.0-31.2); Mean Corpuscular Volume 95.4 fl (81-99); Mean Platelet Volume 8.5 fl (7.4-10.4); Monocytes # 0.6 K/mm3 (0.1-1.0); Monocytes % 5.2 % (1.7-9.3); Neutrophils # 9.1 K/mm3 (1.8-7.8); Neutrophils % 82.8 % (37.0-80.0); Platelet Count 317 K/mm3 (142-424); Red Blood Count 4.45 M/mm3 (4.20-5.40); Red Cell Distribution Width 14.4 % (11.5-17.5); White Blood Count 10.9 K/mm3 (4.8-10.8)
[2023-11-11 15:00] LABS: NT Pro Brain Natriuretic Pep. 2710 pg/mL (0-450)
[2023-11-11 15:01] LABS: INR 0.95 (0.9-1.1); Prothrombin Time 10.7 seconds (10.1-12.5)
[2023-11-11 15:03] LABS: Troponin I < 0.01 ng/ml (0.00-0.034)
[2023-11-11 15:19] LABS: Thyroid Stimulating Hormone 2.51 uIU/mL (0.465-4.68)
--- NOTE | 2023-11-11 16:31 | PC.NURSE ---
ER MD ON PHONE WITH FOR ADMISSION, PT SEES DR FLORES FOR PCP
[2023-11-11 16:53] LABS: Troponin I < 0.01 ng/ml (0.00-0.034)
--- NOTE | 2023-11-11 16:59 | PC.NURSE ---
CALLED REPORT TO PINO RICHARDSON ON 2ND FLOOR AND ANSWERED ALL QUESTIONS
[2023-11-12] VITALS: BP 136/72; PULSE 71; PULSE 87; RESP 17; TEMP 36.8; O2SAT 98
--- NOTE | 2023-11-12 03:57 | PC.NURSE ---
NO SYNCOPAL EPISODES THIS SHIFT. PROSTHESIS OFF RIGHT BKA. STUMP INTACT. STUMP SOCK IN USE. NO C/O PAIN OR DISCOMFORT. HAS SLEPT AT SHORT INTERVALS. A-FIB/FLUTTER CONTROLLED RATE NOTED ON TELEMETRY.
[2023-11-12 04:00] VITALS: BP 145/88; PULSE 66; PULSE 92; RESP 16; TEMP 36.7; O2SAT 95; BMI 29.9
[2023-11-12 08:00] VITALS: BP 133/74; PULSE 100; PULSE 97; RESP 21; TEMP 36.6; O2SAT 97
--- NOTE | 2023-11-12 08:10 | EXP.HP ---
History of Present Illness *Admission Date: 11/11/23 *Reason for visit:: dizziness and syncope *History of present illness: The patient presents with a chief complaint of recurrent episodes of dizziness, lightheadedness, and brief unresponsiveness lasting less than a minute. These episodes began yesterday, with the first noticeable event occurring after a fall due to lightheadedness. The patient denies any prior history of similar episodes. The patient reports intermittent chest pain that resolves spontaneously and pain around the eyes. The patient denies any current chest pain or headache. The patient has a history of a mild stroke and is on blood thinners. The patient reports palpitations during these episodes but denies any known history of irregular heartbeats. The patient mentions a recent change in medication approximately six weeks ago, switching from a previous medication to a new one (Gilpin). The patient started feeling unwell after initiating the new medication. The patient denies any fever, chills, or abdominal pain. The patient has no history of seizures and is unsure if they lost consciousness during the fall. The patient reports experiencing several episodes while coming to the hospital last night. The episodes are described as brief, lasting less than a minute, with shaking that reminds the caregiver of a seizure. The patient remembers feeling dizzy before the episodes but cannot recall the events fully. The patient's caregiver notes that the patient had an episode about 30 minutes prior to the current visit. The patient denies any abdominal pain upon palpation. (above as per ER physician) Further to above history: She came to the ER after her initial fall on 11/10/2023. She had gotten dizzy and fell onto her buttocks. She did not hit her head or lose consciousness during the fall. She did have a near syncopal episode when her daughter was trying to get her up because she became dizzy with position change. There was a concern for vertigo due to a sensation of the room spinning as well as nausea. She was also felt to have a UTI. She had a cervical spine CT which showed nothing acute. She had a chest x-ray which showed nothing acute. She had a head CT showing nothing acute. 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 She had a head CTA showing no evidence of large vessel occlusion or significant stenosis. 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 Neck CTA showed no evidence of arterial occlusion or significant stenosis. There was a 5 mm pulmonary nodule in the posterior left upper lobe. Pelvic x-ray showed nothing acute. She was discharged home on cefdinir as well as meclizine. Her urine culture from that ER visit is still pending but does show greater than 100,000 colony counts of gram-negative rods. After discharge from the ER she had the 3 syncopal episodes with dizziness and was brought back to the ER. She did have another head CT which showed atrophy and chronic changes as well as chronic maxillary and mastoid sinusitis. She had an echo as well but it is still pending. With a each episode, she became lightheaded and dizzy before the syncopal episode. There was some question about seizure from a caregiver, however she states she would only lose consciousness for a few minutes and would wake up fully alert. She denies any pain or injury from her initial fall. She states she had a few episodes while in the emergency room, but has not had any since coming to the second floor. She slept well last night and has been eating and drinking normally. She denies any recent sickness. [facility] Disclaimer: The information contained in this section may have been updated after the patient was seen, as this information can be updated by other users. Medical History (Updated 11/12/23 @ 09:13 by Pedro Chavez
[2023-11-12 09:26] LABS: Chloride 106 mmol/L (98-107); Potassium 4.9 mmoL/L (3.5-5.1); Sodium 137 mmol/L (136-145)
[2023-11-12 09:29] LABS: Anion Gap 9.9 mEq/L (5-15); Blood Urea Nitrogen 28 mg/dl (7-17); Carbon Dioxide 26 mmol/L (22.0-30.0); Creatinine Clearance Estimated 44 mL/min (50-200); Estimated Glomerular Filt Rate 36 ml/min (>60); GFR (African American) 44 ML/MIN (>60); Glucose 144 mg/dl (74-100)
--- NOTE | 2023-11-12 11:47 | EXP.CARD.CON ---
History of Present Illness History of Present Illness Consult date: 11/12/23 Requesting physician: Pedro Wing Chief complaint: syncope History of present illness: This is a 78-year-old white female who presented to the emergency department with dizziness and syncope. She has a past medical history of hypertension, hyperlipidemia, CVA, chronic atrial fibrillation and is status post right lower extremity amputation. She states that she has been having recurrent episodes of dizziness and syncope. She states that the first episode she was sitting on the toilet when she got profoundly dizzy and fell off the toilet onto the floor. She states that she fell onto her butt and did not have any head injuries from that fall. The patient states that she is not really sure whether or not she lost consciousness during that episode but had some episodes following it where she gets significantly dizzy and then will lose consciousness lasting less than a minute. She states that these episodes are witnessed and she is having seizure-like reactions where she is clenching her fist and shaking per her daughter's report. She states she came to the emergency department on the and was released. She had more episodes yesterday and came back to the emergency department. She denies any chest pain or pressure. She denies any shortness of breath. She states that she does have some edema at times in her left lower extremity. She states that this comes and goes. She denies any palpitations or racing of the heart. She denies any fever, chills, nausea, vomiting, diarrhea, PND or orthopnea. [facility] Disclaimer: The information contained in this section may have been updated after the patient was seen, as this information can be updated by other users. Medical History (Updated 11/12/23 @ 11:55 by Nicole Crane APRN) Amputated right leg PAD (peripheral artery disease) HTN (hypertension) CVA (cerebral vascular accident) HLD (hyperlipidemia) Syncope A-fib History of atrial fibrillation Osteoarthritis History of stroke History of cataract Gallbladder disease Surgical History (Updated 11/12/23 @ 08:48 by MUKUL Mooney) History of thrombectomy Hx of amputation below knee Hx of cataract surgery Hx of umbilical hernia repair Hx of breast biopsy History of colonoscopy History of cholecystectomy Family History Other Family history of asthma Family history of cancer Family history of diabetes mellitus type II Family history of gallbladder disease Family history of hypothyroidism Lung cancer Social History (Updated 11/11/23 @ 17:35 by Su Duke RN) Smoking Status: Never smoker second hand exposure: No alcohol intake: never substance use type: denies use current occupational status: retired Travel in the last 8 weeks: None household members: spouse housing: house current occupational exposures/hazards: No caffeine: Yes special rosio needs: No agree to transfusion: No do you feel safe at home: Yes victim of physical abuse: No victim of emotional abuse: No victim of sexual abuse: No would you like helpful sources: No Review of Systems Review of Systems Review of systems:: pertinent systems reviewed and negative unless documented below Constitutional Constitutional: Reports system reviewed and no additional complaints, except as documented, Denies fever(s), Reports frequent falls and Reports weakness Eyes Eyes: Reports system reviewed and no additional complaints, except as documented ENT Ears, Nose, Mouth, and Throat: Reports system reviewed and no additional complaints, except as documented, Reports disequilibrium and Reports dizziness *Cardiovascular Cardiovascular: Reports system reviewed and no additional complaints, except as documented, Denies chest pain, Denies dyspnea, Reports leg edema, Reports lightheadedness, Denies palpitations, Rep
[2023-11-12 12:00] VITALS: PULSE 80
--- NOTE | 2023-11-12 14:53 | PC.NURSE ---
Aox 4, on tele, no syncopal episodes this shift, bed alarm on, purewick in place, lasix given po, 90's on Ra, 20 G R FA NS@75 ML/HR, Up with assistance times one, R BKA With prosthetic at bedside, probably d/c in the am.
[2023-11-12 16:00] VITALS: BP 123/70; PULSE 67; PULSE 80; RESP 16; TEMP 36.7; O2SAT 97
--- NOTE | 2023-11-12 17:07 | PC.NURSE ---
Iv infiltrated and removed.
--- NOTE | 2023-11-12 18:23 | CA_ITS ---
APPROVED REPORT EXAM: Comprehensive 2D, Doppler, and color-flow Echocardiogram Spring Intern: Isela Ramirez CRT Ht: 5 ft 6 in Wt: 186lbs BSA: 1.94 BP: 120/78 mmHg Indications: Chest Pain, Atrial Fibrillation, Syncope, Palpitations, BTK amputee, CVA 2D Dimensions Left Atrium 3.85 cm LVEF (Márquez's) 55.00 % LVOT 2.00 cm (M/F) 1.5-2.5 LV Volume 63.10 mL LA Volume 47.60 mL LA Volume Index 24.50 mL/m2 (M/F) 16-34 EF AP4 53.80 % EF AP2 54.3 % EF BP 55.0 % GL Strain -14.5 % M-Mode Dimensions RVDd 2.77 cm (0.9-2.6) LVDd 4.32 cm (3.5-5.7) Ao Diam 4.25 cm (2.0-3.7) LVDs 2.50 cm (3.5-5.7) IVSd 1.93 cm (0.6-1.1) PWd 0.61 cm (0.6-1.1) EF (Teich) 73.50% FS 42.10% EDV (Teich) 84.00 mL TAPSE 1.33 (<1.7) ESV (Teich) 22.30 mL LV Diastology E Decel Time 150 (160-240 msec) E/A Ratio 4.38 MED E' 10.3 (>= 7 cm/sec) MED A' 2.00 cm/s E'/MED E' Ratio 9.51 (<= 14) LAT E' 12.7 (>= 10 cm/sec) LAT A' 3.50 cm/s E/LAT E' Ratio 7.72 (<= 14) Aortic Valve AoV Peak Tee. 150.0 (50-130 cm/s) AO Peak GR. 9.00 mmHg Mitral Valve MV E Max Tee. 98.0 (40-130 cm/s) MV A Velocity 22.0 (40-130 cm/s) E/A Ratio 4.38 MV Decel. Time 150 (160-240 ms) Tricuspid Valve TR P. Velocity 256.00 cm/s RAP Estimate 10.00 mmHg RVSP 36.30 mmHg Left Ventricle The left ventricle is normal size. The left ventricular systolic function is normal. The left ventricular ejection fraction is within the normal range. There is increased LV wall thickness. There is normal LV segmental wall motion. Diastolic function is indeterminate. LVEF is 55%. Right Ventricle Right ventricle is mildly dilated. The right ventricular systolic function is normal. Atria Left atrium is moderately dilated. Right atrium is moderately dilated. The interatrial septum is not well visualized. Aortic Valve The aortic valve is mildly thickened. There is no aortic valvular stenosis. Trace aortic regurgitation. Mitral Valve The mitral valve is mildly thickened. No evidence of mitral valve stenosis. Mild mitral regurgitation. Tricuspid Valve The tricuspid valve leaflets are thin and pliable. Mild tricuspid regurgitation. RVSP is 25-30 mmHg. Pulmonic Valve The pulmonary valve is normal in structure. Trace pulmonic regurgitation. Great Vessels The aortic root is normal in size. The ascending aorta is normal in size. IVC is normal in size and collapses >50% with inspiration. Pericardium There is no pericardial effusion. Other Information Study Quality: Fair Conclusion Normal biventricular systolic function. Mild RV dilation. Moderate biatrial dilation. Mild MR, mild TR. RVSP is 25-30 mmHg. Electronically signed by : Shanique Morrison MD 11/12/2023 16:50:00
[2023-11-12 20:00] VITALS: BP 141/53; PULSE 80; PULSE 88; RESP 16; TEMP 36.8; O2SAT 94
[2023-11-13] VITALS: BP 154/79; PULSE 79; PULSE 80; RESP 16; TEMP 36.7; O2SAT 95
[2023-11-13 04:00] VITALS: BP 141/73; PULSE 60; PULSE 84; RESP 16; TEMP 36.9; O2SAT 98; BMI 29.9
[2023-11-13 06:44] LABS: Chloride 107 mmol/L (98-107)
[2023-11-13 06:45] LABS: Basophils # 0.1 K/mm3 (0-0.2); Basophils % 0.6 % (0.1-2.0); Eosinophils # 0.2 K/mm3 (0.0-0.4); Hematocrit 39.5 % (37.0-47.0); Hemoglobin 12.7 g/dL (12.2-16.2); Lymphocytes # 1.7 K/mm3 (0.7-4.5); Lymphocytes % 18.6 % (10-50); Mean Corpuscular HGB Conc 32.2 g/dL (31.8-35.4); Mean Corpuscular Hemoglobin 30.3 pg (27.0-31.2); Mean Corpuscular Volume 94.2 fl (81-99); Mean Platelet Volume 8.2 fl (7.4-10.4); Monocytes # 0.6 K/mm3 (0.1-1.0); Monocytes % 6.1 % (1.7-9.3); Neutrophils # 6.7 K/mm3 (1.8-7.8); Neutrophils % 72.6 % (37.0-80.0); Platelet Count 274 K/mm3 (142-424); Potassium 4.4 mmoL/L (3.5-5.1); Red Blood Count 4.19 M/mm3 (4.20-5.40); Red Cell Distribution Width 14.5 % (11.5-17.5); Sodium 135 mmol/L (136-145); White Blood Count 9.2 K/mm3 (4.8-10.8)
[2023-11-13 06:48] LABS: Anion Gap 9.4 mEq/L (5-15); Blood Urea Nitrogen 30 mg/dl (7-17); Calcium 8.5 mg/dl (8.4-10.2); Carbon Dioxide 23 mmol/L (22.0-30.0); Creatinine Clearance Estimated 47 mL/min (50-200); Estimated Glomerular Filt Rate 40 ml/min (>60); GFR (African American) 48 ML/MIN (>60); Glucose 101 mg/dl (74-100)
[2023-11-13 08:00] VITALS: BP 129/94; PULSE 69; PULSE 70; RESP 18; TEMP 36.5; O2SAT 95
--- NOTE | 2023-11-13 08:15 | EXP.ACUTE.PN ---
Subjective *Date: 11/13/23 *Time: 08:54 Interval history: Patient is feeling better this am. No dizzy spells or sycopal episodes. She did get up with help to have a shower and did fine. She slept well and is eating well. She would like to get up with a walker and see how she does walking before she goes home. Medical Exam Vital signs and Labs for Last 24 Hours: Vital Signs Temp Pulse Pulse Resp BP Pulse Ox O2 Del Method 11/13/23 07:33 Room Air 11/13/23 07:23 Room Air 11/13/23 06:37 Room Air 11/13/23 05:00 Room Air 11/13/23 04:00 60 11/13/23 04:00 98.5 F 84 16 141/73 H 98 Room Air 11/13/23 02:35 Room Air 11/13/23 01:00 Room Air 11/13/23 00:00 80 11/13/23 00:00 98.0 F 79 16 154/79 H 95 Room Air 11/12/23 23:00 Room Air 11/12/23 21:00 Room Air 11/12/23 20:00 80 11/12/23 20:00 Room Air 11/12/23 20:00 98.3 F 88 16 141/53 H 94 L Room Air 11/12/23 17:29 Room Air 11/12/23 16:00 98.1 F 67 16 123/70 97 Room Air 11/12/23 16:00 80 11/12/23 15:54 Room Air 11/12/23 14:26 Room Air 11/12/23 12:03 Room Air 11/12/23 12:00 80 11/12/23 10:05 Room Air 11/12/23 08:31 Room Air Intake and Output 11/12/23 11/13/23 11/13/23 19:59 03:59 11:59 Intake Total 270 / 948 678 / 948 Output Total 900 / 2400 1200 / 2400 300 / 2400 Balance -630 / -1452 -522 / -1452 -300 / -1452 Intake: Intake, Oral Amount 270 / 270 Intake, Total IV Amount 678 / 678 0.9 % Sodium Chloride 1000ML 1, 678 / 678 000 ml @ 75 mls/hr IV .[id number] [facility] Rx#:[id number] Output: Output, Urine Amount 900 / 2400 1200 / 2400 300 / 2400 Other: Number of Unmeasured Voids 0 0 0 Number of Bowel Movements 1 Weight 186 lb 8.001 oz Patient Weight 11/13/23 11:59 Weight 186 lb 8.001 oz Laboratory Results - last 24 hr 11/12/23 09:09: Sodium 137, Potassium 4.9, Chloride 106, Carbon Dioxide 26, Anion Gap 9.9, BUN 28 H, Creatinine 1.40 H D, Estimated Creat Clear 44, Estimated GFR 36 L, Est GFR ( Amer) 44 L D, Glucose 144 H D, Calcium 9.0 11/13/23 05:52: WBC 9.2, RBC 4.19 L, Hgb 12.7, Hct 39.5, MCV 94.2, MCH 30.3, MCHC 32.2, RDW 14.5, Plt Count 274, MPV 8.2, Neut % (Auto) 72.6, Lymph % (Auto) 18.6, Sublette % (Auto) 6.1, Eos % (Auto) 2.0, Baso % (Auto) 0.6, Neut # (Auto) 6.7, Lymph # (Auto) 1.7, Sublette # (Auto) 0.6, Eos # (Auto) 0.2, Baso # (Auto) 0.1, Sodium 135 L, Potassium 4.4, Chloride 107, Carbon Dioxide 23, Anion Gap 9.4, BUN 30 H, Creatinine 1.30 H, Estimated Creat Clear 47, Estimated GFR 40 L, Est GFR ( Amer) 48 L, Glucose 101 H D, Calcium 8.5 I & O for Labs for Last 24 Hours: Intake & Output 11/10/23 11/11/23 11/12/23 11/13/23 11:59 11:59 11:59 11:59 Intake Total 625 / 625 948 / 948 Output Total 1300 / 1300 2400 / 2400 Balance -675 / -675 -1452 / -1452 Weight 186 lb 8 oz 186 lb 8.001 oz Constitutional: Present no acute distress Respiratory: Present CTA bilaterally Cardiac: Present Reg Rate and Rhythm (with ectopics) GI: Present soft; Absent distention, tenderness, guarding or rebound Extremities: Absent edema Skin: Present intact Neuro: Present alert, awake and oriented x 3 Assessment and Plan *Assessment and plan (1) Syncope: Status: Acute Qualifiers: Syncope type: vasovagal syncope Qualified Code(s): R55 - Syncope and collapse Category: Medical Code(s): R55 - Syncope and collapse (2) Vertigo: Status: Acute Category: Medical Code(s): R42 - Dizziness and giddiness (3) Acute UTI: Status: Acute Category: Medical Code(s): N39.0 - Urinary tract infection, site not specified (4) Elevated brain natriuretic peptide (BNP) level: Status: Acute Category: Medical Code(s): R79.89 - Other specified abnormal findings of blood chemistry (5) Elevat
[2023-11-13 08:24] LABS: Cholesterol 95 mg/dl (140-200); Triglycerides 95 mg/dl (30-150); VLDL Cholesterol 19 mg/dL (0-40)
[2023-11-13 08:25] LABS: Chol/HDL Ratio 3.1 (1-3.5); HDL Cholesterol 31 mg/dl (40-60)
[2023-11-13 08:35] LABS: Direct LDL Cholesterol 40.18 mg/dL (100-129)
--- NOTE | 2023-11-13 09:11 | PC.NURSE ---
Pt. walked in the hallway with nursing staff. iv removed.
--- NOTE | 2023-11-13 11:00 | EXP.CARD.PN ---
Subjective Subjective Date: 11/13/23 Time: 09:00 Principal diagnosis: dizziness, syncope, afib Interval history: This is a 78-year-old female who presented to the emergency department with dizziness and syncope. The patient was found to have a UTI and is currently being treated with antibiotics. She has had no arrhythmias or significant bradycardia noted on telemetry. This morning she denies any chest pain or pressure. She denies any shortness of breath or edema. She denies any fever, chills, nausea, vomiting, diarrhea, PND orthopnea. She has had no recurrence of her dizziness or syncope since being in the hospital. Exam Data for Last 24 hours Vital signs and Labs for Last 24 Hours: Temp Pulse Resp BP Pulse Ox O2 Del Method 97.7 F 69 18 129/94 H 95 Room Air 11/13/23 08:00 11/13/23 08:00 11/13/23 08:00 11/13/23 08:00 11/13/23 08:00 11/13/23 08:00 Laboratory Results - last 24 hr 11/13/23 05:52: WBC 9.2, RBC 4.19 L, Hgb 12.7, Hct 39.5, MCV 94.2, MCH 30.3, MCHC 32.2, RDW 14.5, Plt Count 274, MPV 8.2, Neut % (Auto) 72.6, Lymph % (Auto) 18.6, Jerome % (Auto) 6.1, Eos % (Auto) 2.0, Baso % (Auto) 0.6, Neut # (Auto) 6.7, Lymph # (Auto) 1.7, Jerome # (Auto) 0.6, Eos # (Auto) 0.2, Baso # (Auto) 0.1, Sodium 135 L, Potassium 4.4, Chloride 107, Carbon Dioxide 23, Anion Gap 9.4, BUN 30 H, Creatinine 1.30 H, Estimated Creat Clear 47, Estimated GFR 40 L, Est GFR ( Amer) 48 L, Glucose 101 H D, Calcium 8.5, Triglycerides 95, Cholesterol 95 L, LDL Cholesterol Direct 40.18 L, VLDL Cholesterol 19, HDL Cholesterol 31 L, Cholesterol/HDL Ratio 3.1 I & O for Last 24 hours: Intake & Output 11/10/23 11/11/23 11/12/23 11/13/23 23:59 23:59 23:59 23:59 Intake Total 895 / 1573 1208 / 1208 Output Total 700 / 700 1500 / 2300 1500 / 1500 Balance -700 / -460 -605 / -727 -292 / -292 Weight 181 lb 6 oz 186 lb 8 oz 186 lb 8.001 oz Constitutional Constitutional: no acute distress and obese *Routine HEENT Exam Head: Present normocephalic and atraumatic ENT: Present mucous membranes moist *Routine Neck Exam Neck: Present supple, full ROM and normal carotid upstroke; Absent JVD, carotid bruit or lymphadenopathy *Routine Respiratory Exam Respiratory: Present CTA bilaterally, normal respiratory effort, able to speak in complete sentences and symmetric chest movement *Routine Cardiovascular Exam Cardiovascular: Present RRR, Normal S1 and Normal S2; Absent murmur or gallop *Routine Abdominal Exam Abdominal: Present soft and normoactive bowel sounds; Absent tenderness, distended or organomegaly *Routine Extremities Exam Extremities: Present full ROM, pulses intact, normal capillary refill and amputation (RLE); Absent cyanosis, clubbing or edema *Routine Skin Exam Skin: Present intact and warm; Absent erythema *Routine Neurological Exam Neurological: Present alert, oriented X3 and CN II-XII intact; Absent sensory deficit or motor deficit Routine Psychiatric Exam Psychiatric: Present normal affect Progress Note: A&P Assessment and plan (1) Syncope: Status: Acute (2) Acute UTI: Status: Acute (3) Elevated brain natriuretic peptide (BNP) level: Status: Acute (4) Elevated LFTs: Status: Acute (5) Fall at home: Status: Acute (6) Acute hyperkalemia: Status: Acute (7) HTN (hypertension): Status: Chronic (8) HLD (hyperlipidemia): Status: Chronic (9) CVA (cerebral vascular accident): Status: Chronic (10) PAD (peripheral artery disease): Status: Acute (11) Amputated right leg: Status: Acute (12) A-fib: Status: Acute (13) Abnormal ECG: Status: Acute (14) (HFpEF) heart failure with preserved ejection fraction: Status: Acute Assessment and Plan Assessment and Plan for All Diagnoses:: Plan: 1. The patient presented to the emergency department dizziness and syncope. The patient was found to have a UTI and treated with IV antibiotics. She has h
--- NOTE | 2023-11-17 13:05 | CARE MANAGER ---
Attempted to contact patient x2 related to hospital discharge. No VM option. DEBRA Oro
--- NOTE | 2023-11-17 15:13 | EXP.DC.SUM ---
General Admission date:: 11/11/23 Discharge date: 11/13/23 HPI HPI HPI: The patient presents with a chief complaint of recurrent episodes of dizziness, lightheadedness, and brief unresponsiveness lasting less than a minute. These episodes began yesterday, with the first noticeable event occurring after a fall due to lightheadedness. The patient denies any prior history of similar episodes. The patient reports intermittent chest pain that resolves spontaneously and pain around the eyes. The patient denies any current chest pain or headache. The patient has a history of a mild stroke and is on blood thinners. The patient reports palpitations during these episodes but denies any known history of irregular heartbeats. The patient mentions a recent change in medication approximately six weeks ago, switching from a previous medication to a new one ([place]). The patient started feeling unwell after initiating the new medication. The patient denies any fever, chills, or abdominal pain. The patient has no history of seizures and is unsure if they lost consciousness during the fall. The patient reports experiencing several episodes while coming to the hospital last night. The episodes are described as brief, lasting less than a minute, with shaking that reminds the caregiver of a seizure. The patient remembers feeling dizzy before the episodes but cannot recall the events fully. The patient's caregiver notes that the patient had an episode about 30 minutes prior to the current visit. The patient denies any abdominal pain upon palpation. (above as per ER physician) Further to above history: She came to the ER after her initial fall on 11/10/2023. She had gotten dizzy and fell onto her buttocks. She did not hit her head or lose consciousness during the fall. She did have a near syncopal episode when her daughter was trying to get her up because she became dizzy with position change. There was a concern for vertigo due to a sensation of the room spinning as well as nausea. She was also felt to have a UTI. She had a cervical spine CT which showed nothing acute. She had a chest x-ray which showed nothing acute. She had a head CT showing nothing acute. 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 She had a head CTA showing no evidence of large vessel occlusion or significant stenosis. 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 Neck CTA showed no evidence of arterial occlusion or significant stenosis. There was a 5 mm pulmonary nodule in the posterior left upper lobe. Pelvic x-ray showed nothing acute. She was discharged home on cefdinir as well as meclizine. Her urine culture from that ER visit is still pending but does show greater than 100,000 colony counts of gram-negative rods. After discharge from the ER she had the 3 syncopal episodes with dizziness and was brought back to the ER. She did have another head CT which showed atrophy and chronic changes as well as chronic maxillary and mastoid sinusitis. She had an echo as well but it is still pending. With a each episode, she became lightheaded and dizzy before the syncopal episode. There was some question about seizure from a caregiver, however she states she would only lose consciousness for a few minutes and would wake up fully alert. She denies any pain or injury from her initial fall. She states she had a few episodes while in the emergency room, but has not had any since coming to the second floor. She slept well last night and has been eating and drinking normally. She denies any recent sickness. Hospital Course Hospital Course Hospital Course: Cardiology was consulted. She was started back on meclizine. She was also started on Rocephin for urinary tract infection treatment. With cardiology visit the following plan was established: Plan: 1. The patient pr
== END 2023-11-13 10:45 | disposition home or self-care (01) ==
LOC: ER 13:02 → 2ND 16:27
PROVIDERS: Emergency Medicine; Nurse Practitioner Family; Admitting Provider Family Medicine; Emergency Provider Family Medicine; PCP Family Medicine; Visit Provider Family Medicine
DX: R55 Syncope and collapse (principal); R42 Dizziness and giddiness; W19.XXXA Unspecified fall, initial encounter; Y92.009 Unspecified place in unspecified non-institutional (private) residence as the place of occurrence of the external cause; R91.1 Solitary pulmonary nodule; N39.0 Urinary tract infection, site not specified; E87.5 Hyperkalemia; R79.89 Other specified abnormal findings of blood chemistry; I63.9 Cerebral infarction, unspecified; E78.2 Mixed hyperlipidemia; I73.9 Peripheral vascular disease, unspecified; R94.31 Abnormal electrocardiogram [ECG] [EKG]; I48.20 Chronic atrial fibrillation, unspecified; Z89.511 Acquired absence of right leg below knee; I11.0 Hypertensive heart disease with heart failure; I50.30 Unspecified diastolic (congestive) heart failure; Z79.899 Other long term (current) drug therapy; Z79.01 Long term (current) use of anticoagulants
CPT/HCPCS: 36415; 70450; 80048; 80053; 80061; 83690; 83735; 83880; 84100; 84439; 84443; 84484; 85025; 85610; 93005; 93270; 93306; 99285; G0378; J0696; J7030

== ENCOUNTER 2024-04-29 15:00 | Outpatient (CLI) | payer MEDICARE, MEDICAID, SELFPAY ==
[2024-04-29 19:23] LABS: Basophils # 0.1 K/mm3 (0-0.2); Basophils % 0.6 % (0.1-2.0); Eosinophils # 0.2 K/mm3 (0.0-0.4); Eosinophils % 1.3 % (0.1-12.0); Hematocrit 43.5 % (37.0-47.0); Lymphocytes # 2.7 K/mm3 (0.7-4.5); Lymphocytes % 23.2 % (10-50); Mean Corpuscular HGB Conc 32.2 g/dL (31.8-35.4); Mean Corpuscular Hemoglobin 29.4 pg (27.0-31.2); Mean Corpuscular Volume 91.4 fl (81-99); Mean Platelet Volume 11.9 fl (7.4-10.4); Monocytes # 1.1 K/mm3 (0.1-1.0); Monocytes % 9.7 % (1.7-9.3); Neutrophils # 7.6 K/mm3 (1.8-7.8); Neutrophils % 64.9 % (37.0-80.0); Platelet Count 228 K/mm3 (142-424); Red Blood Count 4.76 M/mm3 (4.20-5.40); Red Cell Distribution Width 14.9 % (11.5-17.5); White Blood Count 11.6 K/mm3 (4.8-10.8)
[2024-04-29 19:32] LABS: Alanine Aminotransferase 28 U/L (12-78); Albumin Level 4.2 g/dl (3.5-5.0); Albumin/Globulin Ratio 1.6 (1.1-1.8); Alkaline Phosphatase 119 U/L (38-126); Anion Gap 16.2 mEq/L (5-15); Aspartate Amino Transferase 43 U/L (14-36); Bilirubin,Total 0.7 mg/dl (0.2-1.3); Blood Urea Nitrogen 28 mg/dl (7-17); Calcium 9.8 mg/dl (8.4-10.2); Carbon Dioxide 22 mmol/L (22.0-30.0); Chloride 104 mmol/L (98-107); Cholesterol 80 mg/dl (140-200); Estimated Glomerular Filt Rate 48 ml/min (>60); GFR (African American) 58 ML/MIN (>60); Globulin 2.7 g/dL (1.3-3.2); Glucose 85 mg/dl (74-100); HDL Cholesterol 27 mg/dl (40-60); Potassium 5.2 mmoL/L (3.5-5.1); Sodium 137 mmol/L (136-145); Total Protein,Serum 6.9 g/dl (6.3-8.2); Triglycerides 115 mg/dl (30-150); VLDL Cholesterol 23 mg/dL (0-40)
[2024-04-29 19:57] LABS: Direct LDL Cholesterol < 30.00 mg/dL (100-129)
== END 2024-04-29 23:59 | disposition home or self-care (01) ==
LOC: LAB.DROPOF 04-30 10:42
PROVIDERS: PCP Family Medicine; Visit Provider Family Medicine
DX: N18.9 Chronic kidney disease, unspecified (principal); E78.2 Mixed hyperlipidemia; R91.1 Solitary pulmonary nodule; I67.1 Cerebral aneurysm, nonruptured; H81.10 Benign paroxysmal vertigo, unspecified ear; I10 Essential (primary) hypertension
CPT/HCPCS: 80053; 80061; 85025

== ENCOUNTER 2024-07-01 12:13 | Outpatient (CLI) | payer MEDICARE, MEDICAID, SELFPAY ==
[2024-07-01 18:56] LABS: Chloride 105 mmol/L (98-107)
[2024-07-01 18:57] LABS: Potassium 5.3 mmoL/L (3.5-5.1); Sodium 139 mmol/L (136-145)
[2024-07-01 19:00] LABS: Anion Gap 16.3 mEq/L (5-15); Blood Urea Nitrogen 23 mg/dl (7-17); Calcium 9.4 mg/dl (8.4-10.2); Carbon Dioxide 23 mmol/L (22.0-30.0); Estimated Glomerular Filt Rate 48 ml/min (>60); GFR (African American) 58 ML/MIN (>60); Glucose 81 mg/dl (74-100)
== END 2024-07-01 23:59 | disposition home or self-care (01) ==
LOC: LAB.DROPOF 07-03 12:21
PROVIDERS: PCP Family Medicine; Visit Provider Family Medicine
DX: N18.9 Chronic kidney disease, unspecified (principal)
CPT/HCPCS: 80048

== ENCOUNTER 2024-07-13 13:30 | Outpatient (CLI) | payer MEDICARE, MEDICAID, SELFPAY ==
[2024-07-13 18:45] LABS: Chloride 107 mmol/L (98-107); Potassium 4.6 mmoL/L (3.5-5.1); Sodium 140 mmol/L (136-145)
[2024-07-13 18:48] LABS: Anion Gap 14.6 mEq/L (5-15); Blood Urea Nitrogen 26 mg/dl (7-17); Calcium 9.3 mg/dl (8.4-10.2); Carbon Dioxide 23 mmol/L (22.0-30.0); Estimated Glomerular Filt Rate 48 ml/min (>60); GFR (African American) 58 ML/MIN (>60); Glucose 85 mg/dl (74-100)
== END 2024-07-13 23:59 | disposition home or self-care (01) ==
LOC: LAB.DROPOF 07-14 09:36
PROVIDERS: PCP Family Medicine; Visit Provider Family Medicine
DX: E87.6 Hypokalemia (principal)
CPT/HCPCS: 80048

== ENCOUNTER 2024-07-28 13:51 | Outpatient (CLI) | payer MEDICARE, MEDICAID, SELFPAY ==
[2024-07-28 19:27] LABS: Anion Gap 9.5 mEq/L (5-15); Blood Urea Nitrogen 28 mg/dl (7-17); Calcium 9.2 mg/dl (8.4-10.2); Carbon Dioxide 24 mmol/L (22.0-30.0); Chloride 109 mmol/L (98-107); Estimated Glomerular Filt Rate 48 ml/min (>60); GFR (African American) 58 ML/MIN (>60); Glucose 76 mg/dl (74-100); Potassium 4.5 mmoL/L (3.5-5.1); Sodium 138 mmol/L (136-145)
== END 2024-07-28 23:59 | disposition home or self-care (01) ==
LOC: LAB.DROPOF 07-29 13:15
PROVIDERS: PCP Family Medicine; Visit Provider Family Medicine
DX: I13.10 Hypertensive heart and chronic kidney disease without heart failure, with stage 1 through stage 4 chronic kidney disease, or unspecified chronic kidney disease (principal); N18.9 Chronic kidney disease, unspecified
CPT/HCPCS: 80048

== ENCOUNTER 2024-10-27 15:37 | Outpatient (CLI) | payer MEDICARE, MEDICAID, SELFPAY ==
--- OUTSIDE RECORDS SUMMARY | 2023-11-13 06:00 | XMS_ITS ---
Author Organization [facility] Address [address] [facility] [address] [place] [id number] Care Team Providers Care Solid Tire Tuber Machine Operator Name Role Phone Pardeep Amador Primary Care Provider [phone] Pedro Wing [phone] Allergies Allergen (clinical drug ingredient) Drug/Non Drug Allergy documented on EMR Reaction Allergy Type Onset Date Status angiotensin-converting enzyme inhibitor (FN) JORGE Inhibitors cough Drug Allergy Acti ve REASON FOR VISIT follow up ER, UTI Encounters Encounter Location Date Provider Diagnosis [facility] [address] [place] [phone] 11/13/2023 Pedro Wing Plan Of Treatment No Information Progress Notes * JESSE SUAREZDOB:[birth year] (79 yo F)Acc No.[id number]:11/13/2023 Progress Notes Patient: JESSE WEATHERS Provider: Jada [...] Electronic signature of Germaine Wing MD on 10/28/2024 at 10:12 AM EDT Sign off status: Pending * Provider: Jada Wing M.D. Date: 11/13/2023 Generated for Susie davis/Gilbert/Gilbert on: 0 10/28/2024 10:12 AM EDT
--- OUTSIDE RECORDS SUMMARY | 2023-11-20 06:30 | XMS_ITS ---
Author Organization [facility]-[place] Address [address] [facility] [address] [place] [id number] Care Team Providers Care Radiation Oncology Nurse Name Role Phone Pardeep Amador Primary Care Provider [phone] Pedro Wing Unavailable [phone] Allergies Allergen (clinical drug ingredient) Drug/Non Drug [...] creat 1.29, gfr 42 Performing Lab: Notes/Report: Test performed by [employer] [facility]0 [facility] , [address], [place] [address] Bharat Campbell MD, Gerontology Aide CLIA: [id number] Sodium 141 135-145 mmol/L Potassium 5.5 3.5-5.3 mmol/L Chloride 106 97-108 mmol/L CO2 24 22-32 mmol/L Glucose 85 65-99 mg/dL BUN 20 8-23 mg/dL Creatinine 1.29 0.50-1.00 mg/dL Calcium 10.0 8.6-10.4 mg/dL eGFR by Creatinine 42 >59 mL/min/1.73m2 TEN-UTI panel Reviewed date:12/04/2023 04:18:30 PM Interpretation:Rejected Performing Lab: Notes/Report: Rejected REASON FOR VISIT Discharge [facility] Medications Medication SIG (Take, Route, [...] 11/20/2023 Encounters Encounter Location Date Provider Diagnosis [facility] [address] [facility] [address] [place] [phone] 11/20/2023 Pedro Wing Acute UTI N39.0 ; [...] * ELAINA SUAREZ:[birth year] (79 yo F)Acc No.[id number]:11/20/2023 Progress Notes Patient: JESSE WEATHERS Provider: Jada Wing M.D. :1945 A ge:78 Y S ex:Female Date:11/20/2023 Address:[facility] [address], [id number] Pcp:Pardeep Amador Subjective: * Chief Complaints: * 1 . Discharge [facility]. * HPI: H PI: 78 year old female presents with c/o Here for follow up on:?11/10- [facility] hospitalization, see pt docs. Pt [...] neg * G yesy neg * Carline oDminguez 11/20/2023 10:52:3 8 AM > , Provider [...] G 2211 Complex e/[place], [address] Urinalysis, no micro * Follow Up: v ia phone to report test results * Images: Billing Information: * Visit Code: 75660 Office Visit, Est Pt., Level 4. * Procedure Codes: G2211 Complex e/[place]. [address] Urinalysis, no micro. * Electronic signature of Germaine Wing MD on 10/28/2024 at 10:12 AM EDT Sign off status: Pending * Provider: Jada Wign M.D. Date: 0 11/20/2023 Generated for Milai ng/Ollieg/eTransmitting on: 10/28/2024 10:12 AM EDT History and Physical Notes * HPI (History of Present Illness) Category Sub-Category Detail Notes Category Not es HPI Here for follow up on: 11/10-2023 [facility] hospitalization, see pt docs. Pt [...]
--- OUTSIDE RECORDS SUMMARY | 2023-12-11 08:00 | XMS_ITS ---
Author Organization [facility] Address [address] [facility] [address] [place] [id number] Care Team Providers Care Senior Customer Service Representative Name Role Phone Pardeep Amador Primary Care Provider [phone] Pedro Wing Unavailable [phone] Results Component Value Reference Range Notes Urinalysis - Inhouse Reviewed date:12/11/2023 12:44:43 PM Interpretation: Performing Lab: Notes/Report: Color/Clarity yellow/clear Leuk 1+ Nitrite neg Urobili 3.2 Protein neg pH 5.5 Blood trace-intact Sp. Gr. 1.015 Ketone neg Bili neg Gluc neg P-Basic Metabolic Panel (BMP ) Reviewed date:12/15/2023 03:26:32 PM Interpretation: Performing Lab: Notes/Report: Test performed by [facility], [employer] [address] [place] [address] , [address], [place] [address] Bharat Campbell MD, Bioinformaticist CLIA: [id number] Sodium 139 135-145 mmol/L Potassium 4.5 3.5-5.3 [...] Active Encounters Encounter Location Date Provider Diagnosis [facility] [address] [place], [place] [id number] 12/11/2023 Pedro Wing Hypokalemia E87.6 an d Acute UTI N39.0 Assessments Encounter Date Diagnosis (ICD Code) Assessment Notes Treatment Notes Treatment Clinical Notes Section Notes 12/11/2023 Hypokalemia (ICD-10 - E87.6) 12/11/2023 Acute UTI (ICD-10 - N39.0) Plan Of Treatment No Information Progress Notes * JESSE SU[birth year]DOB:[birth year] (79 yo F)Acc No.[id number]:12/11/2023 Patient: JESSE WEATHERS Provider: Jada Wing M.D. :1945 A ge:78 Y S ex:Female Date:12/11/2023 Address:[address] [place] [address] [place], [id number] Pcp:Pardeep Amador Subjective: * Chief Complaints: * [...] Information: * Visit Code: * Procedure Codes: 87064 Urinalysis, no micro. * Electronic signature of Germaine Wing MD on 10/28/2024 at 10:12 AM EDT Sign off status: Pending * Provider: Jada Wing M.D. Date: 0 12/11/2023 Generated for Susie davis/Gilbert/Fannieitting on: 0 10/28/2024 10:12 AM EDT
[2024-10-27 20:24] LABS: Alanine Aminotransferase 20 U/L (12-78); Albumin Level 3.9 g/dl (3.5-5.0); Albumin/Globulin Ratio 1.6 (1.1-1.8); Alkaline Phosphatase 136 U/L (38-126); Anion Gap 11.9 mEq/L (5-15); Aspartate Amino Transferase 27 U/L (14-36); Bilirubin,Total 0.5 mg/dl (0.2-1.3); Blood Urea Nitrogen 23 mg/dl (7-17); Calcium 9.6 mg/dl (8.4-10.2); Carbon Dioxide 24 mmol/L (22.0-30.0); Chloride 107 mmol/L (98-107); Cholesterol 89 mg/dl (140-200); Creatinine,Serum 1.00 mg/dl (0.52-1.04); Estimated Glomerular Filt Rate 53 ml/min (>60); GFR (African American) 65 ML/MIN (>60); Globulin 2.5 g/dL (1.3-3.2); Glucose 86 mg/dl (74-100); HDL Cholesterol 31 mg/dl (40-60); Potassium 4.9 mmoL/L (3.5-5.1); Sodium 138 mmol/L (136-145); Total Protein,Serum 6.4 g/dl (6.3-8.2); Triglycerides 111 mg/dl (30-150)
[2024-10-27 20:27] LABS: Hematocrit 39.4 % (37.0-47.0); Hemoglobin 12.5 g/dL (12.2-16.2); Immature Granulocytes % 0.5 %; Mean Corpuscular HGB Conc 31.7 g/dL (31.8-35.4); Mean Corpuscular Hemoglobin 30.1 pg (27.0-31.2); Mean Corpuscular Volume 94.9 fl (81-99); Nucleated Red Blood Cells % 0 %; Platelet Count 277 K/mm3 (142-424); Red Blood Count 4.15 M/mm3 (4.20-5.40); Red Cell Distribution Width-SD 48.2 fL; White Blood Count 12.7 K/mm3 (4.8-10.8)
[2024-10-27 20:42] LABS: 25-OH Vitamin D, Total 39.8 ng/mL (30-100)
[2024-10-27 21:15] LABS: Vitamin B12 987 pg/mL (239-931)
--- OUTSIDE RECORDS SUMMARY | 2024-10-28 10:12 | XMS_ITS | Clinical Summary ---
Author Organization [facility] Address [address] [facility] [address] [place] [address] Phone Care Team Providers Care Process Coordinator Name Role Phone Unavailable Unavailable Conditions or Problems No information available. Medications No information available. Medications Administered No information available. Allergies, Adverse Reactions, Alerts No information available. Results No information available. Plan of Care No information available. Procedures No information available. Vital Signs No information available. Immunizations No information available. Advance Directives No information available.
--- OUTSIDE RECORDS SUMMARY | 2024-10-28 10:13 | XMS_ITS | Clinical Summary ---
Author Organization Healthcare Address [address] [place] [address] Care Team Providers Care Employment Specialist/Program Manager Name Role Phone Unavailable Primary Care Provider Unavailabl e Allergies No known active allergies Medications furosemide (Lasix) 40 MG tablet TAKE 1 TABLET BY MOUTH ONCE DAILY 1 Active losartan (Cozaar) 50 MG tablet TAKE 1 TABLET BY MOUTH TWICE DAILY 0 Active metoprolol succinate XL (Toprol-XL) 50 MG 24 hr tablet TAKE 1 TABLET BY MOUTH ONCE DAILY FOR 90 DAYS 1 Active urea (Carmol) 40 % cream APPLY CREAM EXTERNALLY ONCE DAILY FOR DRY SKIN FOR 90 DAYS 0 Active Cyanocobalamin (VITAMIN B-12 PO) 1 Active OK-Garlic tablet 1 Active atorvastatin (Lipitor) 40 MG tablet Take 1 tablet (40 mg total) by mouth 1 (one) time each day. 30 tablet 11 1 Active Family History Medical History Relation Name Comments Conversions - Other Mother Heart tr ouble Diabetes Mother Relation Name Status Comments Mother Social History Tobacco Use Types Packs/Day Years Used Date Smoking Tobacco: Never Alcohol Use Standard Drinks/Week Comments No 0 (1 standard drink = 0.6 oz pur e alcohol) Comments Unknown Sex and Gender Information Value Date Recorded Sex Assigned at Not on file Legal Sex Female 7:59 PM EDT Gender Identity Not on file Sexual Orientation Not on file Last Filed Vital Signs Vital Sign Reading Time Taken Comments Blood Pressure 118/64 06/27/2020 1:23 PM EDT Pulse 64 06/27/2020 1:23 PM EDT Temperature - - Respiratory Rate - - Oxygen Saturation - - Inhaled Oxygen Concentration - - Weight 82.6 kg (182 lb 0.2 oz) 06/27/2020 1:23 P M EDT Height 162.6 cm (5' 4 ) 06/27/2020 1:23 PM EDT Body Mass Index 31.24 06/27/2020 1:23 PM EDT Plan of Treatment Health Maintenance Due Date Last Done Comments [facility]-Bone Density Scan 1945 [facility]-Depression Screening 1945 [facility]-Infant/Child/Adol SDOH Screenings 1945 [facility]- SDOH Screenings 1962 [facility]-Adult SDOH Screenings 1962 [facility]-DTaP,Tdap,and Td Vaccines (1 - Tdap) 09/02/1963 [facility]-Zoster Vaccines (1 of 2) 1994 [facility]-RSV Vaccine: 60+ Years or (1 - 1-dose 75+ series) 09/02/2019 [id number]-[id number]-40 Vaccine (3 - season) 2023 06/14/2020, 05/17/2020 [facility]-Influenza Vaccine (#1) 2024 01/24/2022 [facility]-Pneumococcal Vaccine: 50+ Years Completed 01/24/2022, 12/14/2019 HPV Vaccines Aged Out No longer eligi ble based on patient's age to complete this topic [facility]-HIB Vaccines Aged Out No longer e ligible based on patient's age to complete this topic [facility]-Hepatitis A Vaccines Aged Out No longer eligible based on patient's age to complete this topic [facility]-IPV Vaccines Aged Out No longer e ligible based on patient's age to complete this topic [facility]-Rotavirus Vaccines Aged Out No lo nger eligible based on patient's age to complete this topic Insurance A[employer]LDO MEDICARE MEDICAID-[place] MEDICARE
--- OUTSIDE RECORDS SUMMARY | 2024-10-28 10:13 | XMS_ITS | Encounter Summary ---
Author Organization Healthcare Address [address] [place] [address] Care Team Providers Care Sole Dyer Name Role Phone Unavailable Primary Care Provider Unavailabl e Encounter Details Date Type Department Care Team (Late st Contact Info) Description 11/10/2023 Orders Only External Location [address] [place] [address] Treasure James, [address] [place] [address] Social History Tobacco Use Types Packs/Day Years Used Date Smoking Tobacco: Never Alcohol Use Standard Drinks/Week Comments No 0 (1 standard drink = 0.6 oz pur e alcohol) Comments Unknown Sex and Gender Information Value Date Recorded Sex Assigned at Not on file Legal Sex Female 7:59 PM EDT Gender Identity Not on file Sexual Orientation Not on file documented as of this encounter Plan of Treatment Not on file documented as of this encounter Procedures Procedure Name Priority Date/Time Associated Diagnosis Comments CT OUTSIDE IMAGES 11/10/2023 8:07 PM EDT documented in this encounter Results * CT OUTSIDE IMAGES (11/10/2023 8:07 PM EDT) Anatomical Region Laterality Modality Computed Tomogra phy 11/10/2023 8:07 PM EDT Treasure James DO IMG CT PROCEDURES Final Result documented in this encounter Visit Diagnoses Not on filedocumented in this encounter
--- OUTSIDE RECORDS SUMMARY | 2024-10-28 10:13 | XMS_ITS | Clinical Summary ---
Author Organization [facility] Address [address] [place] [address] Care Team Providers Care Acquisition Specialist Name Role Phone Tee Amador MD Primary Care Provider [phone] Allergies No known active allergies Medications furosemide (LASIX) 40 MG tablet Take 40 mg by mouth Daily. Active atorvastatin (LIPITOR) 40 MG tablet Take 40 mg by mouth Daily. Active vitamin B-12 (CYANOCOBALAMIN ) 100 MCG tablet Take 50 mcg by mouth Daily. Active aspirin 81 MG EC tablet Take 81 mg by mouth Daily. Active losartan (COZAAR) 25 MG tablet Take 2 tablets by mouth Daily. 30 tablet 07/30/2021 Active acetaminophen (TYLENOL) 325 MG tablet Take 2 tablets by mouth Every 4 (Four) Hours As Needed for Mild Pain . 07/30/2021 Active ascorbic acid (VITAMIN C) 500 MG tablet Take 1 tablet by mouth Daily. 07/30/2021 Active ferrous sulfate 325 (65 FE) MG tablet Take 1 tablet by mouth Daily With Breakfast. 07/30/2021 Active metoprolol tartrate (LOPRESSOR) 25 MG tablet Take 1 tablet by mouth Every 12 (Twelve) Hours. 07/30/2021 Active warfarin (Coumadin) 1 MG tablet Take 1 tablet by mouth Every Night. 07/30/2021 Active spironolactone (ALDACTONE) 25 MG tablet TAKE ONE TABLET BY MOUTH EVERY OTHER DAY OR DIRECTED 12/26/2021 Active Active Problems Problem Noted Date Diagnosed Date Gangrene 10/09/2021 Acute hematogenous osteomyelitis of right foot 0 07/22/2021 Foot ulceration, right, with necrosis of bone Essential hypertension 07/22/2021 Dyslipidemia 07/22/2021 PAF (paroxysmal atrial fibrillation) 07/22/2021 Chronic anticoagulation 07/22/2021 Overview (07/22/2021): On Coumadin History of CVA (cerebrovascular accident) 2021 Charcot's joint of right foot 07/22/2021 Overview (07/24/2021): Added automatically from request for surgery [id number] Family History Medical History Relation Name Comments Cancer Father Diabetes Mother Heart disease Mother Relation Name Status Comments Father Mother Social History Tobacco Use Types Packs/Day Years Used Date Smoking Tobacco: Never Smokeless Tobacco: Never Alcohol Use Standard Drinks/Week Comments Never 0 (1 standard drink = 0.6 oz pur e alcohol) AUDIT-C Answer Date Recorded Q1: How often do you have a drink containing alcohol? Never 07/23/2021 Q2: How many drinks containi ng alcohol do you have on a typical day when you are drinking? Patient does not drink Q3: How often do you have si x or more drinks on one occasion? Never 07/23/2021 Abuse Screen Answer Date Recorded Unsafe at Home or Work/School Not on file Feels Threatened by Someone? Not on file Does Anyone Keep You from Co ntacting Others or Doint Things Outside the Home? Not on file 01/02/2023 Physical Sign of Abuse Present Not on file 1 Housing Stability Answer Date Recorded Current Living Arrangements Not on file 12/21 Potentially Unsafe Housing Conditions Not on antwan e 01/02/2023 Family and Community Support Answer Jose e Recorded Help with Day-to-Day Activities Not on file 01/02/2023 Lonely or Isolated Not on file 01/02/2023 Employment Answer Date Recorded Do you want help finding or keeping work or a fabi b? Not on file 01/02/2023 Disabilities Answer Date Recorded Concentrating, Remembering, or Making Decisions Difficulty Not on file 01/02/2023 Doing Errands Independently Difficulty Not on fi le 01/02/2023 Education Answer Date Recorded Help with school or training? 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 Not on file Not on file Last Filed Vital Signs Vital Sign Reading Time Taken Comments Blood Pressure 108/68 02/19/2022 8:40 AM EST Pulse 64 02/19/2022 8:40 AM EST Temperature 36.7 C (98.1 F) 02/19/2022 8:40 AM EST Respiratory Rate 16 07/30/2021 7:44 AM EDT Oxygen Saturation 99% 02/19/2022 8:40 AM EST Inhaled Oxygen Concentration - - Weight 82.6 kg (182 lb) 02/19/2022 8:40 AM EST Height 162.6 cm (5' 4 ) 02/19/2022 8:40 AM EST Body Mass Index 31.24 02/19/2022 8:40 AM EST Plan of Treatment Health Maintenance Due Date Last Done Comments DXA SCAN 1945 TDAP/TD VACCINES (1 - Tdap) 09/02/1963 ZOSTER VACCINE (1 of 2) 1994 RSV Vaccine - Adults (1 - 1- dose 75+ series) 09/02/2019 ANNUAL WELLNESS VISIT 09/11/2021 COVID-19 Vaccine ( - season) 2023 INFLUENZA VACCINE 12/21/2024 01/24/2022 Pneumococcal Vaccine 50+ Completed 01/24/2022, 11/22 Insurance MEDICARE A & B Advance Directives * CPR (Attempt to Resuscitate) (Latest Code Status on File) Date Activated Date Inactivated Comments 07/22/2021 9:23 PM 07/30/2021 2:33 PM Question Answer Comments Code Status (Patient has no pulse and is not breathing): CPR (Attempt to Resuscitate) Medical Interventions (Patie nt has pulse or is breathing): Full Support Care Teams Acquisition Specialist Relationship Specialty Start Date End Date Tee Amador MD [facility] [address] [facility] [address] [place] [address] PCP - General Family Medicine 07/22/21
--- OUTSIDE RECORDS SUMMARY | 2024-10-28 10:13 | XMS_ITS | Encounter Summary ---
Author Organization Healthcare Address [address] [place] [address] Care Team Providers Care Dye House Supervisor Name Role Phone Unavailable Primary Care Provider Unavailabl e Encounter Details Date Type Department Care Team (Late st Contact Info) Description 11/10/2023 Orders Only External Location [address] [place] [address] Treasure James, [address] [place] [address] Social History Tobacco Use Types [...]
--- OUTSIDE RECORDS SUMMARY | 2024-10-28 10:13 | XMS_ITS | Patient Health Record ---
[facility] [address] [facility] [address] [place] [id number] Care Team Providers Care Paving Contractor Name Role Phone Pardeep Amador Primary Care Provider [phone] Pedro Wing Unavailable [phone] Allergies Allergen (clinical drug ingredient) Drug/Non Drug [...] 42 Performing Lab: Notes/Report: Test performed by [facility], [employer] [address] [place] [address] , [address], [place] [address] Bharat Campbell MD, Glass Cleaner CLIA: [id number] Sodium 141 135-145 mmol/L Potassium 5.5 3.5-5.3 mmol/L Chloride 106 97-108 mmol/L CO2 24 22-32 mmol/L Glucose 85 65-99 mg/dL BUN 20 8-23 mg/dL Creatinine 1.29 0.50-1.00 mg/dL Calcium 10.0 8.6-10.4 mg/dL eGFR by Creatinine 42 >59 mL/min/1.73m2 TEN-UTI panel Reviewed date:12/04/2023 04:18:30 PM Interpretation:Rejected Performing Lab: Notes/Report: Rejected Urinalysis - Inhouse Reviewed date:12/11/2023 12:44:43 PM Interpretation: Performing Lab: Notes/Report: Color/Clarity yellow/clear Leuk 1+ Nitrite neg Urobili 3.2 Protein neg pH 5.5 Blood trace-intact Sp. Gr. 1.015 Ketone neg Bili neg Gluc neg P-Basic Metabolic Panel (BMP ) Reviewed date:12/15/2023 03:26:32 PM Interpretation: Performing Lab: Notes/Report: Test performed by [facility] [address] [place] [address] , [address], [place] [address] Bharat Campbell MD, Glass Cleaner CLIA: [id number] Sodium 139 135-145 mmol/L Potassium 4.5 3.5-5.3 mmol/L Chloride 103 97-108 mmol/L CO2 26 22-32 mmol/L Glucose 90 65-99 mg/dL BUN 31 8-23 mg/dL Creatinine 1.14 0.50-1.00 mg/dL Calcium 9.9 8.6-10.4 mg/dL eGFR by Creatinine 49 >59 mL/min/1.73m2 H-BMP Reviewed date:11/13/2023 09:31:36 AM Interpretation: Performing Lab: Notes/Report: NA 135 136-145 mmol/L K 4.4 3.5-5.1 mmoL/L CL 107 98-107 mmol/L CO2 23 22.0-30.0 mmol/L GAP 9.4 5-15 mEq/L BUN 30 7-17 mg/dl CREATT 1.30 0.52-1.04 mg/dl CRCLE 47 50-200 mL/min GFRAA 48 >60 ML/MIN EGFR 40 >60 ml/min GLU 101 74-100 mg/dl Delta: 144 on 11/12/23-0909 CA 8.5 8.4-10.2 mg/dl H-CBC Reviewed date:11/13/2023 09:31:36 AM Interpretation: Performing Lab: Notes/Report: WBC 9.2 4.8-10.8 K/mm3 RBC 4.19 4.20-5.40 M/mm3 HGB 12.7 12.2-16.2 g/dL HCT 39.5 37.0-47.0 % MCV 94.2 81-99 fl MCH 30.3 27.0-31.2 pg MCHC 32.2 31.8-35.4 g/dL RDW 14.5 11.5-17.5 % PLT 274 142-424 K/mm3 MPV 8.2 7.4-10.4 fl NE% 72.6 37.0-80.0 % LY% 18.6 10-50 % MO% 6.1 1.7-9.3 % EO% 2.0 0.1-12.0 % BA% 0.6 0.1-2.0 % NE# 6.7 1.8-7.8 K/mm3 LY# 1.7 0.7-4.5 K/mm3 MO# 0.6 0.1-1.0 K/mm3 EO# 0.2 0.0-0.4 K/mm3 BA# 0.1 0-0.2 K/mm3 TEN-UTI panel Reviewed date:12/15/2023 10:08:16 AM Interpretation:Abnormal Performing Lab: Notes/Report: Abnormal Medications Medication SIG (Take, Route, Frequency, Duration) Notes Start Date End Date Status Vitamin D3 50 MCG (1999 UT) 1 tab(s) orally once a day; Duration: 30 day(s) 07/20/2018 Active Eliquis 5 mg 1 tablet orally twice a day; Duration: 7 days PT NEEDS APPT Active Aspirin 81 MG 1 P.O. Q HS Acti ve B-12 1000 MCG 1 tab(s) orally once a day; Duration: 30 day(s) 07/20/2018 Active Atorvastatin Calcium 40 MG 1 tablet Orally Once a day; Duration: 30 days Active metroNIDAZOLE 500 MG 1 tablet Orally Two times a day; Duration: 7 days 12/15/2023 Active Metoprolol Succinate ER 50 MG 1.5 tablet Orally Once a day; Duration: 90 days Active Losartan Potassium 50 MG 1 tab(s) orally twice a day; Duration: 90 days Active Immunizations Vaccine Route Administration Date Status Comme nts COVID 19 Moderna IM Intramuscular 05/17/2020 Administered COVID 19 Moderna IM Intramuscular 06/14/2020 Administered Fluzone High Dose (65yr and older) IM Intramuscular 01/24/2022 Administered Fluzone High Dose (65yr and older) IM Intramuscular 11/20/2023 Administered PNEUMOVAX 23 VACCINE IM Intramuscular 12/14/2019 Administe red Prevnar (PCV13) IM Intramuscular 04/05/2014 Administered Prevnar (PCV20) IM Intramuscular 01/24/2022 Administered Problems Problem Type SNOMED Code ICD Code Onset Dates Problem Status W/U Status Risk Notes Problem Essential hypertension (12041849) Essential (primary) hypertension (I10) Active confirmed Problem Vitamin D deficiency (36521405) Vitamin D deficiency (E55.9) Active confirmed Problem Vitamin B12 deficiency (244909446) Vitamin B12 deficiency (E53.8) Active confirmed Problem Essential hypertension (83478586) Essential hypertension (I10) Active confirmed Problem Long-term current use of anticoagulant (172397979) long-term current use of anticoagulant (Z79.01) Active confirmed Problem Sick sinus syndrome (48806219) Sick sinus syndrome (I49.5) Active confirmed Problem Paroxysmal atrial fibrillation (686743515) Paroxysmal atrial fibrillation (I48.0) Active confirmed Problem Mixed hyperlipidemia (193294686) Mixed hyperlipidemia (E78.2) Active confirmed Problem Peripheral vascular disease (876120575) Peripheral vascular disease (I73.9) Active confirmed Problem Atrial fibrillation (23343470) Atrial fibrillation, unspecified type (I48.91) Active confirmed Problem Hyperlipidaemia (23211397) Hyperlipidemia, unspecified hyperlipidemia type (E78.5) Active confirmed Problem Cerebrovascular accident (674723153) Cerebrovascular accident (CVA), unspecified mechanism (I63.9) Active confirmed Problem Peripheral vascular disease (113911336) PAD (peripheral artery disease) (I73.9) Active confirmed Problem Cardiac arrhythmia (374429067) Cardiac arrhythmia, unspecified cardiac arrhythmia type (I49.9) Active confirmed Problem Osteopenia (306997267) Osteopenia, unspecified location (M85.80) Active confirmed Problem Localized, primary osteoarthritis of the ankle and/or foot (967673470) Primary osteoarthritis of right foot (M19.071) Active confirmed Problem Fibrocystic breast changes (82871602) Fibrocystic breast disease (FCBD), unspecified laterality (N60.19) Active confirmed Problem History of cerebrovascular accident without residual deficits (403138984) Status post CVA (Z86.73) Active confirmed Problem Amputated below knee (482188162) 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) Active confirmed Problem Deformity of right foot (488137597) Deformity of right foot (M21.961) Active confirmed Problem Ulcer of right foot (disorder) (990411885) Ulcer of right foot, limited to breakdown of skin (L97.511) Active confirmed Problem Primary hypertension (70567910) Primary hypertension (I10) Active confirmed Problem 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) Active confirmed Vital Signs Heart Rate 66 /min 11/20/2023 Blood pressure diastolic 72 mm Hg 11/20/2023 Height 64.50 in 11/20/2023 Blood pressure systolic 110 mm Hg 11/20/2023 Weight 000 lbs 11/20/2023 Encounters Encounter Location Date Provider Diagnosis [facility] [address] [place], [place] [id number] 11/20/2023 Pedro Loyal Acute UTI N39.0 ; Hyperkalemia E87.5 and Encounter for immunization Z23 [facility] [address] [facility] [address] [place], [place] [id number] 12/11/2023 Pedro Loyal Hypokalemia E87.6 an d Acute UTI N39.0 [facility] [address] [facility] [address] [place], [place] [id number] 10/13/2024 Pedro Loyal [facility] [address] [facility] [address] [place], [place] [id number] 11/25/2023 Pedro Loyal [facility] [address] [facility] [address] [place], [place] [id number] 12/15/2023 Pedro Loyal Assessments Encounter Date Diagnosis (ICD Code) Assessment Notes Treatment Notes Treatment Clinical Notes Section Notes 11/20/2023 Hyperkalemia (ICD-10 - E87.5) 11/20/2023 Acute UTI (ICD-10 - N39.0) Finish Cefdinir tomorrow 12/11/2023 Hypokalemia (ICD-10 - E87.6) 11/20/2023 Encounter for immunization (ICD-10 - Z23) 12/11/2023 Acute UTI (ICD-10 - N39.0) Plan Of Treatment Pending Test Test Name Order Date Cologuard 01/24/2022 Insurance Providers Payer Name Payer Address Payer Phone Subscriber Number Group Number Insured Name Patient Relationship to Insured Coverage Start Date Coverage End Date [employer] [address] [place] [address] [id number] ADELA RadfordJESSE Self - patient is the insured MEDICAID [employer] [address] [place] [id number] JTINDU RadfordJESSE Self - patient is the insured Medications Administered Medication Instructions Date of Administration Dosage Notes B-12 08/27/2011 1 mL B-12 10/20/2018 1 mL B-12 12/20/2018 1 mL Dexamethasone 08/27/2011 1 mL Medical (General) History Medical History History ICD Code Hypertension Abnormal Pap 06/2002 Glucose Intolerance Hypertriglyceridemia Sigmoid Diverticulosis, C-Scope 2013 Stroke 06/2020 Covid Vaccine Moderna Atrial Fibrillation Surgical History Surgery Date(Month/Year) Cholecystectomy 1989 Umbilical Hernia Ventral Hernia Repair 06/2012 Colonoscopy 07/2013 CVA with Thrombectomy, LT M2 06/22/2020 RT BKA for Charcot Foot w/ Osteomyelitis 07/25/2021 Hospitalization History Reason Date(Month/Year) Stroke, LT [facility] 06/22-06/2020
== END 2024-10-27 23:59 | disposition home or self-care (01) ==
LOC: LAB.DROPOF 10-28 10:09
PROVIDERS: PCP Family Medicine; Visit Provider Family Medicine
DX: E55.9 Vitamin D deficiency, unspecified (principal); E53.8 Deficiency of other specified B group vitamins; I10 Essential (primary) hypertension; E78.2 Mixed hyperlipidemia
CPT/HCPCS: 80053; 80061; 82306; 82607; 85025

== ENCOUNTER 2024-11-09 09:55 | Outpatient (CLI) | payer MEDICARE, MEDICAID, SELFPAY ==
--- OUTSIDE RECORDS SUMMARY | 2023-11-13 06:00 | XMS_ITS ---
Author Organization [facility] Address [facility] [facility] [address] [place] [id number] Care Team Providers Care Office Clinician Name Role Phone Pardeep Amador Primary Care Provider [phone] Pedro Wing [phone] Allergies Allergen (clinical drug ingredient) Drug/Non Drug Allergy documented on EMR Reaction Allergy Type Onset Date Status angiotensin-converting enzyme inhibitor (FN) JORGE Inhibitors cough Drug Allergy Acti ve REASON FOR VISIT follow up ER, UTI Encounters Encounter Location Date Provider Diagnosis [facility] [address] [place] [phone] 11/13/2023 Pedro Wing Plan Of Treatment No Information Progress Notes * JESSE SUAREZDOB:[birth year] (79 yo F)Acc No.[id number]:11/13/2023 Progress Notes Patient: JESSE WEATHERS Provider: Jada [...] Electronic signature of Germaine Wing MD on 11/09/2024 at 10:15 AM EDT Sign off status: Pending * Provider: Jada Wing M.D. Date: 11/13/2023 Generated for Susie davis/Gilbert/Gilbert on: 0 11/09/2024 10:15 AM EDT
--- OUTSIDE RECORDS SUMMARY | 2023-11-20 06:30 | XMS_ITS ---
Author Organization [facility]-[place] Address [address] [facility] [address] [place] [id number] Care Team Providers Care Pit And Auxiliaries Supervisor Name Role Phone Pardeep Amador Primary Care Provider Pedro Wing Unavailable [phone] Allergies Allergen (clinical drug ingredient) Drug/Non Drug [...] 42 Performing Lab: Notes/Report: Test performed by [employer] [facility] , [address], [place] [address] Bharat Campbell MD, Nurseryman Assistant CLIA: [id number] Sodium 141 135-145 mmol/L Potassium 5.5 3.5-5.3 mmol/L Chloride 106 97-108 mmol/L CO2 24 22-32 mmol/L Glucose 85 65-99 mg/dL BUN 20 8-23 mg/dL Creatinine 1.29 0.50-1.00 mg/dL Calcium 10.0 8.6-10.4 mg/dL eGFR by Creatinine 42 >59 mL/min/1.73m2 TEN-UTI panel Reviewed date:12/04/2023 04:18:30 PM Interpretation:Rejected Performing Lab: Notes/Report: Rejected REASON FOR VISIT Discharge [facility] Medications Medication SIG (Take, Route, Frequency, Duration) [...] older) IM Intramuscular 11/20/2023 Administered Vital Signs Weight 000 lbs 11/20/2023 Blood pressure systolic 110 mm Hg 11/20/19 24 Blood pressure diastolic 72 mm Hg 024 Heart Rate 66 /min 11/20/2023 Height 64.50 in 11/20/2023 Encounters Encounter Location Date Provider Diagnosis [facility] [address] [facility] [address] [place] [address], [place] [phone] 11/20/2023 Pedro Wing Acute UTI N39.0 ; [...] * ELAINA SUAREZ:[birth year] (79 yo F)Acc No.[id number]:11/20/2023 Progress Notes Patient: JESSE WEATHERS Provider: Jada Wing M.D. :1945 A ge:78 Y S ex:Female Date:11/20/2023 Address:[facility] [address], [id number] Pcp:Pardeep Amador Subjective: * Chief Complaints: * 1 . Discharge [facility]. * HPI: H PI: 78 year old female presents with c/o Here for follow up on:?11/10- [facility] hospitalization, see pt docs. Pt was admitted [...] G 2211 Complex e/[place], [address] Urinalysis, no micro * Follow Up: v ia phone to report test results * Images: Billing Information: * Visit Code: 84367 Office Visit, Est Pt., Level 4. * Procedure Codes: G2211 Complex e/[place]. [address] Urinalysis, no micro. * Electronic signature of Germaine Wing MD on 11/09/2024 at 10:15 AM EDT Sign off status: Pending * Provider: Jada Wing M.D. Date: 11/20/2023 Generated for Milai ng/Ollieg/eTransmitting on: 11/09/2024 10:15 AM EDT History and Physical Notes * HPI (History of Present Illness) Category Sub-Category Detail Notes Category Not es HPI Here for follow up on: 11/10-2023 [facility] hospitalization, see pt docs. Pt was admitted [...]
--- OUTSIDE RECORDS SUMMARY | 2023-12-11 08:00 | XMS_ITS ---
Author Organization [facility]-[place] Address [address] [facility] [address] [place] [phone] Care Team Providers Care Mainspring Strip Inspector Name Role Phone Pardeep Amador Primary Care Provider [phone] Pedro Wing Unavailable [phone] Results Component Value Reference Range Notes Urinalysis - Inhouse Reviewed date:12/11/2023 12:44:43 PM Interpretation: Performing Lab: Notes/Report: Color/Clarity yellow/clear Leuk 1+ Nitrite neg Urobili 3.2 Protein neg pH 5.5 Blood trace-intact Sp. Gr. 1.015 Ketone neg Bili neg Gluc neg P-Basic Metabolic Panel (BMP ) Reviewed date:12/15/2023 03:26:32 PM Interpretation: Performing Lab: Notes/Report: Test performed by [employer], [employer] [address] [place] [address] , [address], [place] [address] Bharat Campbell MD, Plant Production Manager CLIA: [id number] Sodium 139 135-145 mmol/L Potassium 4.5 3.5-5.3 [...] Active Encounters Encounter Location Date Provider Diagnosis [facility] [address] [place], [place] [phone] 12/11/2023 Pedro Wing Hypokalemia E87.6 an d Acute UTI N39.0 Assessments Encounter Date Diagnosis (ICD Code) Assessment Notes Treatment Notes Treatment Clinical Notes Section Notes 12/11/2023 Hypokalemia (ICD-10 - E87.6) 12/11/2023 Acute UTI (ICD-10 - N39.0) Plan Of Treatment No Information Progress Notes * JESSE SUAREZDOB:[birth year] (79 yo F)Acc No.[id number]:12/11/2023 Patient: JESSE WEATHERS Provider: Jada Wing M.D. :1945 A ge:78 Y S ex:Female Date:12/11/2023 Address:[address] [place] [address] [place], [id number] Pcp:Pardeep Amador Subjective: * Chief Complaints: * [...] Information: * Visit Code: * Procedure Codes: 57680 Urinalysis, no micro. * Electronic signature of Germaine Wing MD on 11/09/2024 at 10:15 AM EDT Sign off status: Pending * Provider: Jada Wing M.D. Date: 0 12/11/2023 Generated for Susie davis/Gilbert/Fannieitting on: 0 11/09/2024 10:15 AM EDT
--- NOTE | 2024-11-09 10:00 | CT_ITS ---
FINAL REPORT TECHNIQUE: Axial images were obtained through the chest without contrast. Coronal and sagittal images were obtained and reviewed. This study was performed with techniques to keep radiation doses as low as reasonably achievable, (ALARA). Individualized dose reduction techniques using automated exposure control or adjustment of mA and/or kV according to the patient's size were employed. CLINICAL HISTORY: Follow-up pulmonary nodule COMPARISON: CTA neck 10/2023 FINDINGS: There are mild vascular calcifications of the aortic arch. The heart size is normal. There is no pericardial or pleural effusion. Limited images of the upper abdomen show moderate fatty infiltration of the liver. There is a moderate hiatal hernia. The previously noted nodule in the posterior left upper lobe now measures 5 mm on image 25 of series 3 and is stable to slightly smaller. No new nodules identified. IMPRESSION: Stable to slightly smaller posterior left upper lobe nodule. Per Fleischner criteria, recommend follow-up in 1 year. Reviewed, Interpreted and Dictated by Johny Abdi MD Transcribed by Adriana Dubois Authenticated and [facility]
--- OUTSIDE RECORDS SUMMARY | 2024-11-09 10:15 | XMS_ITS | Clinical Summary ---
Author Organization 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
--- OUTSIDE RECORDS SUMMARY | 2024-11-09 10:15 | XMS_ITS | Clinical Summary ---
Author Organization [facility] Address [address] [facility] [address] [place] [address] Phone Care Team Providers Care Director School Of Nursing Name Role Phone Unavailable Unavailable Conditions or Problems No information available. Medications No information available. Medications Administered No information available. Allergies, Adverse Reactions, Alerts No information available. Results No information available. Plan of Care No information available. Procedures No information available. Vital Signs No information available. Immunizations No information available. Advance Directives No information available.
--- OUTSIDE RECORDS SUMMARY | 2024-11-09 10:16 | XMS_ITS | Clinical Summary ---
Author Organization Healthcare Address [address] [place] [address] Care Team Providers Care Publishing Director Name Role Phone Unavailable Primary Care Provider [...] UKY-Bone Density Scan 1944 UKY-Depression Screening 1944 UKY-/Child/Adol SDOH Screenings 1944 UKY- SDOH Screenings 1962 UKY-Adult SDOH Screenings 1962 UKY-DTaP,Tdap,and Td Vaccines (1 - Tdap) 09/02/1963 UKY-Zoster Vaccines (1 of 2) 1994 UKY-RSV Vaccine: 60+ Years or (1 - 1-dose 75+ series) 09/02/2019 [id number]-52 Vaccine (3 - season) 2023 06/14/2020, 05/17/2020 [...] this topic Insurance [employer] [address]
--- OUTSIDE RECORDS SUMMARY | 2024-11-09 10:16 | XMS_ITS | Encounter Summary ---
Author Organization Healthcare Address [address] [place] [address] Care Team Providers Care Raw Stock Dyeing Machine Tender Name Role Phone Unavailable Primary Care Provider Unavailabl e Encounter Details Date Type Department Care Team (Late st Contact Info) Description 11/10/2023 Orders Only External Location [address] [place] [address] Treasure James, [address] [place] [address] Social History Tobacco Use Types [...]
--- OUTSIDE RECORDS SUMMARY | 2024-11-09 10:16 | XMS_ITS | Encounter Summary ---
Author Organization Healthcare Address [address] [place] [address] Care Team Providers Care Dictaphone Transcriber Name Role Phone Unavailable Primary Care Provider Unavailabl e Encounter Details Date Type Department Care Team (Late st Contact Info) Description 11/10/2023 Orders Only External Location [address] [place] [address] Treasure James, [address] [place] [address] Social History Tobacco Use Types [...]
--- OUTSIDE RECORDS SUMMARY | 2024-11-09 10:16 | XMS_ITS | Patient Health Record ---
[facility] Address [address] [facility] [address] [place] [id number] Care Team Providers Care Search Engine Optimization Manager Name Role Phone Pardeep Amador Primary Care Provider [phone] Pedro Wing Unavailable [phone] Allergies Allergen (clinical drug ingredient) Drug/Non Drug [...] 42 Performing Lab: Notes/Report: Test performed by [facility], [facility] [address] [place] [address] , [address], [place] [address] Bharat Campbell MD, Match Marker CLIA: [id number] Sodium 141 135-145 mmol/L Potassium 5.5 3.5-5.3 [...] Interpretation: Performing Lab: Notes/Report: Test performed by [facility] [address] [place] [address] , [address], [place] [address] Bharat Campbell MD, Match Marker CLIA: [id number] Sodium 139 135-145 mmol/L Potassium 4.5 3.5-5.3 [...] Vaccine Route Administration Date Status Comme nts Prevnar (PCV20) IM Intramuscular 01/24/2022 Administered Prevnar (PCV13) IM Intramuscular 04/05/2014 Administered PNEUMOVAX 23 VACCINE IM Intramuscular 12/14/2019 Administe red Fluzone High Dose (65yr and older) IM Intramuscular 01/24/2022 Administered Fluzone High Dose (65yr and older) IM Intramuscular 11/20/2023 Administered COVID 19 Moderna IM Intramuscular 05/17/2020 Administered COVID 19 Moderna IM Intramuscular 06/14/2020 Administered Problems Problem Type SNOMED Code ICD Code Onset Dates Problem Status W/U Status Risk Notes Problem Essential hypertension (06298029) Essential (primary) hypertension (I10) Active confirmed Problem Vitamin D deficiency (98999413) Vitamin D deficiency (E55.9) Active confirmed Problem Vitamin B12 deficiency (889874223) Vitamin B12 deficiency (E53.8) Active confirmed Problem Essential hypertension (31280283) Essential hypertension (I10) Active confirmed Problem Long-term current use of anticoagulant (148324894) 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) Active confirmed Problem Sick sinus syndrome (25105369) Sick sinus syndrome (I49.5) Active confirmed Problem Paroxysmal atrial fibrillation (813813654) Paroxysmal atrial fibrillation (I48.0) Active confirmed Problem Mixed hyperlipidemia (563166623) Mixed hyperlipidemia (E78.2) Active confirmed Problem Peripheral vascular disease (963257849) Peripheral vascular disease (I73.9) Active confirmed Problem Atrial fibrillation (05766586) Atrial fibrillation, unspecified type (I48.91) Active confirmed Problem Hyperlipidaemia (10352938) Hyperlipidemia, unspecified hyperlipidemia type (E78.5) Active confirmed Problem Cerebrovascular accident (953777206) Cerebrovascular accident (CVA), unspecified mechanism (I63.9) Active confirmed Problem Peripheral vascular disease (333541258) PAD (peripheral artery disease) (I73.9) Active confirmed Problem Cardiac arrhythmia (079169545) Cardiac arrhythmia, unspecified cardiac arrhythmia type (I49.9) Active confirmed Problem Osteopenia (572247548) Osteopenia, unspecified location (M85.80) Active confirmed Problem Localized, primary osteoarthritis of the ankle and/or foot (064314086) Primary osteoarthritis of right foot (M19.071) Active confirmed Problem Fibrocystic breast changes (80175334) Fibrocystic breast disease (FCBD), unspecified laterality (N60.19) Active confirmed Problem History of cerebrovascular accident without residual deficits (667499951) Status post CVA (Z86.73) Active confirmed Problem Amputated below knee (283829024) 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) Active confirmed Problem Deformity of right foot (200828166) Deformity of right foot (M21.961) Active confirmed Problem Ulcer of right foot (disorder) (802811129) Ulcer of right foot, limited to breakdown of skin (L97.511) Active confirmed Problem Primary hypertension (24664721) Primary hypertension (I10) Active confirmed Problem 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0 [facility] [address] [facility] [address] [place], [place] [id number] 10/13/2024 Pedro [place]re [facility] [address] [facility] [address] [place], [place] [id number] 11/25/2023 Pedro [place]re [facility] [address] [facility] [address] [place], [place] [id number] 12/15/2023 Pedro [place] Assessments Encounter Date Diagnosis (ICD Code) Assessment [...] [employer] [address] [place] [address] [id number] ADELA RadfordJESSE Self - patient is the insured MEDICAID [employer] [address] [place] [id number] JTINDU RadfordJESSE Self - patient is the [...]
--- NOTE | 2024-11-09 10:30 | CT_ITS ---
FINAL REPORT TECHNIQUE: thin section axial CT with and without IV contrast supplemented with multiplanar 3-D reconstruction of the head. This study was performed with techniques to keep radiation doses as low as reasonably achievable, (ALARA)individualized dose reduction techniques using automated exposure control or adjustment of mA and/or kV according to the patient's size were employed. NASCET technique utilized for stenosis evaluation. CLINICAL HISTORY: aneurysm, right ophthalmic artery COMPARISON: 11/10/2023 FINDINGS: HEAD CT: The ventricles are normal in size. There is no evidence of hemorrhage. No masses are identified. No extra-axial fluid is seen. The sinuses are normal. 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 The cranial circulation is otherwise unremarkable. There is no significant stenosis or occlusion. NECK: RIGHT CAROTID: No significant stenosis is seen of the cervical common or internal carotid artery. LEFT CAROTID: No significant stenosis seen of the cervical common or internal carotid artery. VERTEBRALS: The vertebrals are patent. No significant stenosis is present. IMPRESSION: Small 2 mm focus at the origin of the left ophthalmic artery projecting medially and superiorly, also seen on the prior CTA of 2023, stable. No new vascular abnormality is identified. Reviewed, Interpreted and Dictated by Johny Abdi MD Transcribed by Carol Mcneill Authenticated and [facility]
[2024-11-09] MEDS: SODIUM CHLORIDE 0.9% 10ML SYR (RAD ONLY) 10 ML IV (10:59)
[2024-11-09] MEDS: IOPAMIDOL-370 (76%);100ML BOTTLE 100 ML IV (10:59)
[2024-11-09] MEDS: 0.9 % SODIUM CHLORIDE 50 ML VIAL IV (10:59)
== END 2024-11-09 23:59 | disposition home or self-care (01) ==
LOC: RAD 09:56
PROVIDERS: PCP Family Medicine; Visit Provider Family Medicine
DX: I67.1 Cerebral aneurysm, nonruptured (principal); R91.1 Solitary pulmonary nodule
CPT/HCPCS: 70496; 71250; Q9967

== ENCOUNTER 2025-01-13 10:32 | Outpatient (CLI) | payer MEDICARE, MEDICAID, SELFPAY ==
--- OUTSIDE RECORDS SUMMARY | 2023-07-18 05:00 | XMS_ITS ---
Author Organization [facility] Address [address] [facility] [address] [place] [id number] Care Team Providers Care Eclectic Doctor Name Role Phone Pardeep Amador Primary Care Provider DenverPedro nuñez Unavailable [phone] Allergies Allergen (clinical drug ingredient) Drug/Non Drug Allergy documented on EMR Reaction Allergy Type Onset Date Status angiotensin-converting enzyme inhibitor (FN) JORGE Inhibitors cough Drug Allergy Acti ve Results Component Value Reference Range Notes PT/INR (in house) Reviewed date:07/18/2023 10:38:25 AM Interpretation: Performing Lab: Notes/Report: PT 31.6 INR 2.6 current dose 4mg Tu&Sat 2 mg AOD new dose no change next check 6 weeks ideal INR 2-3 REASON FOR VISIT 6 week follow up Medications Medication SIG (Take, Route, Frequency, Duration) Notes Start Date End Date Status Vitamin D3 50 MCG (1999 UT) 1 tab(s) ora lly once a day; Duration: 30 day(s) 07/20/2018 Active B-12 1000 MCG 1 tab(s) orally once a day; Duration: 30 day(s) 07/20/2018 Active Aspirin 81 MG 1 P.O. Q HS Acti ve Atorvastatin Calcium 40 MG 1 tab(s) oral ly once a day; Duration: 90 days Active Metoprolol Succinate ER 50 MG 1.5 tablet Orally Once a day; Duration: 90 days Active Losartan Potassium 50 MG 1 tab(s) orally twice a day; Duration: 90 days Active Spironolactone 25 MG 1 tab(s) orally Onc e a day; Duration: 90 days Active Warfarin Sodium 2 mg TAKE ONE TABLET BY MOUTH EVERY DAY Active Vital Signs Blood pressure systolic 106 mm Hg 07/18/19 24 Blood pressure diastolic 74 mm Hg 024 Heart Rate 60 /min 07/18/2023 Height 64.50 in 07/18/2023 Weight 000 lbs 07/18/2023 Encounters Encounter Location Date Provider Diagnosis [facility] [address] [place], [place] [id number] 07/18/2023 Pedro Wing Paroxysmal atrial fibrillation I48.0 and meterman current use of anticoagulant Z79.01 Assessments Encounter Date Diagnosis (ICD Code) Assessment Notes Treatment Notes Treatment Clinical Notes Section Notes 07/18/2023 Paroxysmal atrial fibrillation (ICD-10 - I48.0) 07/18/2023 senior care current use of anticoagulant (ICD-10 - Z79.01) Plan Of Treatment Next Appt Details Follow Up: 6 Weeks, Reason: Progress Notes * JESSE SU[birth year]DOB:[birth year] (79 yo F)Acc No.[id number]:07/18/2023 Progress Notes Patient: JESSE WEATHERS Provider: Jada Wing M.D. :1945 A ge:77 Y S ex:Female Date:07/18/2023 Address:[facility] [place], [id number] Pcp:Pardeep Amador Subjective: * Chief Complaints: * 1 . 6 week follow up. * HPI: H ematology: 77 year old female presents with c/o PT/INR d ue for PT/INR. * ROS: D ERMATOLOGY: no R mathieu. n o H catalina. G ASTROENTEROLOGY: no N ausea. n o V omiting. U ROLOGY: no D ifficulty urinating. n o B lood in urine. * Medical History: H ypertension, Abnormal Pap 06/2002, Glucose Intolerance, Hypertriglyceridemia, Sigmoid Diverticulosis, C-Scope 2013, Stroke 06/2020 , Covid Vaccine Moderna, Atrial Fibrillation. 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 * Hospitalization/Major Diagno stic Procedure: [place], [facility] 06/22-06/2020. * Family History: F ather: 67 yrs, lung CA. M other: 75 yrs, DM. P aternal Grand Father: . P aternal Grand Mother: . M aternal Grand Father: . M aternal Grand Mother: . 5 brother(s) , 4 sister(s) . 2 son(s) , 2 daughter(s) . . * Social History: C URRENT TOBACCO USE S moking Status: Patient does NOT smoke. C affeine: yes, frequency:. Exercise: no. Home smoke detector use: no. Marital Status: . New since last visit: none. Past smoking status: no, Smoking status: Does not smoke. Alcohol: no. Sexually active: yes. * Medications: T aking Vitamin D3 50 MCG (2000 UT) Tablet 1 tab(s) orally once a day , Taking B- 12 1000 MCG Tablet 1 tab(s) orally once a day , Taking Aspirin 81 MG 1 P.O. Q HS , Taking Atorvastatin Calcium 40 MG Tablet 1 tab(s) orally once a day , Taking Metoprolol Succinate ER 50 MG Tablet Extended Release 24 Hour 1.5 tablet Orally Once a day , Taking Losartan Potassium 50 MG Tablet 1 tab(s) orally twice a day , Taking Spironolactone 25 MG Tablet 1 tab(s) orally Once a day , Taking Warfarin Sodium 2 mg Tablet TAKE ONE TABLET BY MOUTH EVERY DAY , Medication List reviewed and reconciled with the patient * Allergies: A CE Inhibitors: cough. Objective: * Vitals: W t:000, Temp:98.6, BP:106/74, HR:60, Nurse:, Ht:64.50. Assessment: * Assessment: 1. P aroxysmal atrial fibrillation - I48.0 (Primary) 2 . L gracie term current use of anticoagulant - Z79.01 Plan: * Treatment: Value Reference Range P T 31.6 * I NR 2.6 * c urrent dose 4mg Tu&Sat 2 mg AOD * n ew dose no change * n ext check 6 weeks * i deal INR 2-3 * [place],Supriya 07/18/2023 9 :09:22 AM > , Provider reviewed results while patient in office.Pedro Wing 07/18/2023 10:38:17 AM > * Procedure Codes: 8 5610 PROTHROMBIN TIME, Modifiers: QW , 89477 CAPILLARY BLOOD DRAW * Follow Up: 6 Weeks * Images: Billing Information: * Visit Code: 29353 Office Visit, Est Pt., Level 3. * Procedure Codes: 03635 PROTHROMBIN TIME. Modifiers: QW 67858 CAPILLARY BLOOD DRAW. * Electronic signature of Germaine Wing MD on 01/16/2025 at 10:43 AM EDT Sign off status: Pending * Provider: Jada Wing M.D. Date: 0 07/18/2023 Generated for Susie davis/Gilbert/eTchuchoitting on: 1 10:43 AM EDT History and Physical Notes * HPI (History of Present Illness) Category Sub-Category Detail Notes Category Not es Hematology PT/INR due for PT/INR
--- OUTSIDE RECORDS SUMMARY | 2023-08-29 05:00 | XMS_ITS ---
Author Organization [facility] Address [address] [facility] [address] [place] [phone] Care Team Providers Care Shearing Machine Tender Name Role Phone Pardeep Amador Primary Care Provider DennisonPedro nuñez Unavailable [phone] Allergies Allergen (clinical drug ingredient) Drug/Non Drug Allergy documented on EMR Reaction Allergy Type Onset Date Status angiotensin-converting enzyme inhibitor (FN) JORGE Inhibitors cough Drug Allergy Acti ve Results Component Value Reference Range Notes PT/INR (in house) Reviewed date:08/31/2023 08:43:17 AM Interpretation: Performing Lab: Notes/Report: INR 2.6 current dose 4mg Tu&Sat, 2mg AOD new dose stop next check none ideal INR 2-3 REASON FOR VISIT PT/INR Medications Medication SIG (Take, Route, Frequency, Duration) Notes Start Date End Date Status Aspirin 81 MG 1 P.O. Q HS [...] e a day; Duration: 90 days Active B-12 1000 MCG 1 tab(s) orally once a day; Duration: 30 day(s) 07/20/2018 Active Eliquis 5 MG 1 tablet Orally Twic e a day; Duration: 90 days 08/29/2023 Active Vitamin D3 50 MCG (2000 UT) 1 tab(s) ora lly once a day; Duration: 30 day(s) 07/20/2018 Active Vital Signs Blood pressure systolic 114 mm Hg 08/29/19 24 Blood pressure diastolic 70 mm Hg 024 Heart Rate 62 /min 08/29/2023 Height 64.50 in 08/29/2023 Weight 000 lbs 08/29/2023 Encounters Encounter Location Date Provider Diagnosis [facility] [address] [place] [phone] 08/29/2023 Pedro Wing Paroxysmal atrial fibrillation I48.0 Assessments Encounter Date Diagnosis (ICD Code) Assessment Notes Treatment Notes Treatment Clinical Notes Section Notes 08/29/2023 Paroxysmal atrial fibrillation (ICD-10 - I48.0) Plan Of Treatment Medication Medication Name Sig Start Date Stop Date Notes Eliquis 5 MG 1 tablet Orally Twic e a day; Duration: 90 days 08/29/2023 Warfarin Sodium 2 mg TAKE ONE TABLET BY MOUTH EVERY DAY Next Appt Details Follow Up: 6 Months fasting, Reason: Progress Notes * JESSE SUAREZDOB:[birth year] (79 yo F)Acc No.[id number]:08/29/2023 Progress Notes Patient: JESSE WEATHERS Provider: Jada Wing M.D. :1945 A ge:77 Y S ex:Female Date:08/29/2023 Address:[address] [place] [address] [place], [id number] Pcp:aPrdeep Amador Subjective: * Chief Complaints: * 1 . PT/INR. * HPI: H ematology: 77 year old female presents with c/o PT/INR d ue for PT/INR. Patient now has new insurance coverage and wants to stop Coumadin and start Eliquis. * ROS: D ERMATOLOGY: no R mathieu. [...] Osteomyelitis 07/25/2021. * Hospitalization/Major Diagno stic Procedure: [place], [facility] 06/22-06/2020. * Family History: F ather: [...] Inhibitors: cough. Objective: * Vitals: W t:000, Temp:98.1, BP:114/70, HR:62, Nurse:prasanna, Ht: 64.50. * Examination: G eneral Examination: General Appearance: N AD, sitting in a wheelchair, right leg prosthesis in place. H eart: irregular rhythm. L ungs: c lear to auscultation.? Assessment: * Assessment: 1. P aroxysmal atrial fibrillation - I48.0 (Primary) Plan: * Treatment: Value Reference Range I NR 2.6 * c urrent dose 4mg Tu&Sat, 2mg AOD * n ew dose stop * n ext check none * i deal INR 2-3 * Carline Dominguez 08/29/2023 9:20:30 AM > , Provider reviewed results while patient in office.Pedro Wing 08/29/2023 9:31:01 AM > * Procedure Codes: 8 5610 PROTHROMBIN TIME, Modifiers: QW , 83391 CAPILLARY BLOOD DRAW * Follow Up: 6 Months fasting * Images: Billing Information: * Visit Code: 70960 Office Visit, Est Pt., Level 3. * Procedure Codes: 50208 PROTHROMBIN TIME. Modifiers: QW 97279 CAPILLARY BLOOD DRAW. * Electronic signature of Germaine Wing MD on 01/16/2025 at 10:43 AM EDT Sign off status: Pending * Provider: Jada Wing M.D. Date: 0 08/29/2023 Generated for Susie davis/Gilbert/eTransmitting on: 1 10:43 AM EDT History and Physical Notes * HPI (History of Present Illness) Category Sub-Category Detail Notes Category Not es Hematology PT/INR due for PT/INR. Patient now has new insurance coverage and wants to stop Coumadin and start Eliquis Examination Category Sub-Category Detail Notes Category Not es General Examination Heart: irregular rhythm Lungs: clear to auscultatio n General Appearance: NAD, sitting in a wh eelchair, right leg prosthesis in place
--- OUTSIDE RECORDS SUMMARY | 2023-11-13 06:00 | XMS_ITS ---
Author Organization [facility] Address [facility] [facility] [address] [place] [id number] Care Team Providers Care Garde Manager Name Role Phone Pardeep Amador Primary Care Provider Pedro Wing [phone] Allergies Allergen (clinical drug ingredient) Drug/Non Drug Allergy documented on EMR Reaction Allergy Type Onset Date Status angiotensin-converting enzyme inhibitor (FN) JORGE Inhibitors cough Drug Allergy Acti ve REASON FOR VISIT follow up ER, UTI Encounters Encounter Location Date Provider Diagnosis [facility] [address] [place] [id number] 11/13/2023 Pedro Wing Plan Of Treatment No Information Progress Notes * JESSE SUAREZDOB:[birth year] (79 yo F)Acc No.[id number]:11/13/2023 Progress Notes Patient: JESSE WEATHERS Provider: Jada Wing M.D. :1945 A ge:78 Y S ex:Female Date:11/13/2023 Address:[address], [id number] Pcp:Pardeep Amador Subjective: * Chief Complaints: * 1 . follow up ER, UTI. * ROS: D ERMATOLOGY: no R mathieu. [...] 07/25/2021. * Hospitalization/Major Diagno stic Procedure: S tromeryl, LT [place]- [facility] 06/22-06/2020. * Family History: [...] smoke. Alcohol: no. Sexually active: yes. * Allergies: A CE Inhibitors: cough. Objective: * Vitals: Assessment: Plan: * Treatment: * Images: Billing Information: * Visit Code: * Procedure Codes: * Electronic signature of Germaine Wing MD on 01/16/2025 at 10:43 AM EDT Sign off status: Pending * Provider: Jada Wing M.D. Date: 0 11/13/2023 Generated for Susie davis/Gilbert/Gilbert on: 1 10:43 AM EDT
--- OUTSIDE RECORDS SUMMARY | 2023-11-20 06:30 | XMS_ITS ---
Author Organization [facility]-[place] Address [address] [facility] [address] [place] [id number] Care Team Providers Care Mold Filler Name Role Phone Pardeep Amador Primary Care Provider [phone] Pedro Wing Unavailable [phone] Allergies Allergen (clinical drug ingredient) Drug/Non Drug Allergy documented on EMR Reaction Allergy Type Onset Date Status angiotensin-converting enzyme inhibitor (FN) JORGE Inhibitors cough Drug Allergy Acti ve Results Component Value Reference Range Notes Urinalysis - Inhouse Reviewed date:11/20/2023 12:17:15 PM Interpretation: Performing Lab: Notes/Report: Color/Clarity yellow/clear Leuk neg Nitrite neg Urobili 3.2 Protein neg pH 6.0 Blood trace-intace Sp. Gr. 1.015 Ketone neg Bili neg Gluc neg P-Basic Metabolic Panel (BMP ) Reviewed date:11/25/2023 09:51:43 AM Interpretation:K+ 5.5, creat 1.29, gfr 42 Performing Lab: Notes/Report: CLIA: [id number] Bharat Campbell MD, Motion Picture Commentator [facility] , [address], [place] [address] Test performed by [employer], [facility] Sodium 141 135-145 mmol/L Potassium 5.5 3.5-5.3 mmol/L Chloride 106 97-108 mmol/L CO2 24 22-32 mmol/L Glucose 85 65-99 mg/dL BUN 20 8-23 mg/dL Creatinine 1.29 0.50-1.00 mg/dL Calcium 10.0 8.6-10.4 mg/dL eGFR by Creatinine 42 >59 mL/min/1.73m2 TEN-UTI panel Reviewed date:12/04/2023 04:18:30 PM Interpretation:Rejected Performing Lab: Notes/Report: Rejected REASON FOR VISIT Discharge [facility] Medications Medication SIG (Take, Route, Frequency, Duration) Notes Start Date End Date Status Metoprolol Succinate ER 50 MG 1.5 tablet Orally Once a day; Duration: 90 days Active Atorvastatin Calcium 40 MG 1 tab(s) oral ly once a day; Duration: 90 days Active Losartan Potassium 50 MG 1 tab(s) orally twice a day; Duration: 90 days Active Eliquis 5 MG 1 tablet Orally Twic e a day; Duration: 90 days 08/29/2023 Active Vitamin D3 50 MCG (2000 UT) 1 tab(s) ora lly once a day; Duration: 30 day(s) 07/20/2018 Active Aspirin 81 MG 1 P.O. Q HS Acti ve B-12 1000 MCG 1 tab(s) orally once a day; Duration: 30 day(s) 07/20/2018 Active Immunizations Vaccine Route Administration Date Status Comme nts Fluzone High Dose (65yr and older) IM Intramuscular 11/20/2023 Administered Vital Signs Blood pressure systolic 110 mm Hg 11/20/19 24 Blood pressure diastolic 72 mm Hg 024 Heart Rate 66 /min 11/20/2023 Height 64.50 in 11/20/2023 Weight 000 lbs 11/20/2023 Encounters Encounter Location Date Provider Diagnosis [facility] [address] [facility] [address] [place] [id number] 11/20/2023 Pedro Wing Acute UTI N39.0 ; Hyperkalemia E87.5 and Encounter for immunization Z23 Assessments Encounter Date Diagnosis (ICD Code) Assessment Notes Treatment Notes Treatment Clinical Notes Section Notes 11/20/2023 Acute UTI (ICD-10 - N39.0) Finish Cefdinir tomorrow 11/20/2023 Hyperkalemia (ICD-10 - E87.5) 11/20/2023 Encounter for immunization (ICD-10 - Z23) Plan Of Treatment Treatment Notes Assessment Notes Acute UTI Finish Cefdinir cathy rrow Next Appt Details Follow Up: via phone to repo rt test results, Reason: Progress Notes * ELAINA SUAREZ:[birth year] (79 yo F)Acc No.[id number]:11/20/2023 Progress Notes Patient: JESSE WEATHERS Provider: Jada Wing M.D. :1945 A ge:78 Y S ex:Female Date:11/20/2023 Address:[facility] [address], [id number] Pcp:Pardeep Amador Subjective: * Chief Complaints: * 1 . Discharge [facility]. * HPI: H PI: 78 year old female presents with c/o Here for follow up on:?11/10- [facility] hospitalization, see pt docs. Pt was admitted for UTI and dehydration. Pt states she has one more day of abx but is feeling much better since d/c. * ROS: D ERMATOLOGY: no R mathieu. [...] Diagno stic Procedure: S fabian, LT Putamen- 06/22-06/2020. * Family History: F ather: 67 [...] tab(s) orally twice a day , Taking Eliquis 5 MG Tablet 1 tablet Orally Twice a day , Discontinued Spironolactone 25 MG Tablet 1 tab(s) orally Once a day , Medication List reviewed and reconciled with the patient * Allergies: A CE Inhibitors: cough. Objective: * Vitals: W t:000, Temp:98.0, BP:110/72, HR:66, Nurse:prasanna, Ht: 64.50. * Examination: G eneral Examination: General Appearance: N AD, sitting in a wheelchair, right leg prosthesis in place. H eart: irregular rhythm. L ungs: c lear to auscultation.? Assessment: * Assessment: 1. A cute UTI - N39.0 (Primary) 2 . H yperkalemia - E87.5 3 . E ncounter for immunization - Z23 Plan: * Treatment: Value Reference Range C olor/Clarity yellow/clear * L euk neg * N itrite neg * U robili 3.2 * P rotein neg * p H 6.0 * B lood trace-intace * S p. Gr. 1.015 * K etone neg * B radha neg * G yesy neg * Carline Dominguez 11/20/2023 10:52:3 8 AM > , Provider reviewed results while patient in office. ?LAB: TEN-UTI panel (Collection Date & Time - 11/26/2023)?Rejected* Marixa Cooley 11/27/2023 2:12: 22 PM > Specimen was rejected for testing due to the time frame in which it was recieved. Please have pt come in to recollect if necessary.Sylvia Burton 12/03/2023 10:26:26 AM > Please call patient to see how she is doing. If patient has any uti symptoms, may bring in sample for repeat testing per Dr. Wing.Carline Dominguez 12/03/2023 12:34:41 PM > Spoke with pt's daughter Dena, states that pt is feeling better and does not have any UTI symptoms. Pt's daughter is currently sick and does not want to expose pt to anything. States that she can bring pt in next week if urine sample is still needed?Sylvia Burton 12/04/2023 3:59:38 PM > Sample is only required if patient is experiencing symptoms. Sent to Dillon Dominguez to inform.Carline Dominguez 12/04/2023 4:18:21 PM > Pt's daughter informed Notes: Finish Cefdinir tomorrow??2.?Hyperkalemia?LAB: P-Basic Metabolic Panel (BMP) (Collection Date & Time - 11/20/2023 10:14 AM)?K+ 5.5, creat 1.29, gfr 42* Value Reference Range B UN 20 8-23 - mg/dL * C alcium 10.0 8.6-10.4 - mg/dL * C hloride 106 97-108 - mmol/L * C O2 24 22-32 - mmol/L * C reatinine 1.29 H 0.50-1.00 - mg/dL * G lucose 85 65-99 - mg/dL * P otassium 5.5 H 3.5-5.3 - mmol/L * S odium 141 135-145 - mmol/L * e GFR by Creatinine 42 L >59 - mL/min/1.73m2 * Avani Moody 11/25/2023 9:48: 33 AM >See phone encounter * Immunizations: Fluzone High Dose (65yr and older) : 0.7 mL (Route: Intramuscular) given by Carline Dominguez on Right Deltoid (Encounter for immunization) * Procedure Codes: G 2211 Complex e/[place], [address] Urinalysis, no micro * Follow Up: v ia phone to report test results * Images: Billing Information: * Visit Code: 78019 Office Visit, Est Pt., Level 4. * Procedure Codes: G2211 Complex e/[place]. [address] Urinalysis, no micro. * Electronic signature of Germaine Wing MD on 01/16/2025 at 10:43 AM EDT Sign off status: Pending * Provider: Jada Wing M.D. Date: 0 11/20/2023 Generated for Milai ng/Ollieg/eTransmitting on: 1 10:43 AM EDT History and Physical Notes * HPI (History of Present Illness) Category Sub-Category Detail Notes Category Not es HPI Here for follow up on: 11/10-2023 [facility] hospitalization, see pt docs. Pt was admitted for UTI and dehydration. Pt states she has one more day of abx but is feeling much better since d/c Examination Category Sub-Category Detail Notes Category Not es General Examination Heart: irregular rhythm Lungs: clear to auscultatio n General Appearance: NAD, sitting in a wh eelchair, right leg prosthesis in place
--- OUTSIDE RECORDS SUMMARY | 2023-12-11 08:00 | XMS_ITS ---
Author Organization [facility]-[place] Address [address] [facility] [address] [place] [id number] Care Team Providers Care Ripsaw Operator Name Role Phone Pardeep Amador Primary Care Provider [phone] Pedro Wing Unavailable [phone] Results Component Value Reference Range Notes Urinalysis - Inhouse Reviewed date:12/11/2023 12:44:43 PM Interpretation: Performing Lab: Notes/Report: Color/Clarity yellow/clear Leuk 1+ Nitrite neg Urobili 3.2 Protein neg pH 5.5 Blood trace-intact Sp. Gr. 1.015 Ketone neg Bili neg Gluc neg P-Basic Metabolic Panel (BMP ) Reviewed date:12/15/2023 03:26:32 PM Interpretation: Performing Lab: Notes/Report: CLIA: [id number] Bharat Campbell MD, Highway Patrol Officer [facility]0 [facility] , [address], [place] [address] Test performed by [employer], [employer] Sodium 139 135-145 mmol/L Potassium 4.5 3.5-5.3 mmol/L Chloride 103 97-108 mmol/L CO2 26 22-32 mmol/L Glucose 90 65-99 mg/dL BUN 31 8-23 mg/dL Creatinine 1.14 0.50-1.00 mg/dL Calcium 9.9 8.6-10.4 mg/dL eGFR by Creatinine 49 >59 mL/min/1.73m2 REASON FOR VISIT urine sample, blood work Medications Medication SIG (Take, Route, Frequency, Duration) Notes Start Date End Date Status Aspirin 81 MG 1 P.O. Q HS Acti ve B-12 1000 MCG 1 tab(s) orally once a day; Duration: 30 day(s) 07/20/2018 Active Metoprolol Succinate ER 50 MG 1.5 tablet Orally Once a day; Duration: 90 days Active Eliquis 5 MG 1 tablet Orally Twic e a day; Duration: 90 days 08/29/2023 Active Losartan Potassium 50 MG 1 tab(s) orally twice a day; Duration: 90 days Active Atorvastatin Calcium 40 mg TAKE ONE TABL ET BY MOUTH EVERY DAY; Duration: 90 Active Vitamin D3 50 MCG (2000 UT) 1 tab(s) ora lly once a day; Duration: 30 day(s) 07/20/2018 Active Encounters Encounter Location Date Provider Diagnosis [facility] [address] [place], [place] [phone] 12/11/2023 Pedro Wing Hypokalemia E87.6 an d Acute UTI N39.0 Assessments Encounter Date Diagnosis (ICD Code) Assessment Notes Treatment Notes Treatment Clinical Notes Section Notes 12/11/2023 Hypokalemia (ICD-10 - E87.6) 12/11/2023 Acute UTI (ICD-10 - N39.0) Plan Of Treatment No Information Progress Notes * JESSE SUAREZDOB:[birth year] (79 yo F)Acc No.[id number]:12/11/2023 Patient: JESSE WEATHERS Provider: Jada Wing M.D. :1945 A ge:78 Y S ex:Female Date:12/11/2023 Address:[address] [place] [address] [address], [id number] Pcp:Pardeep Amador Subjective: * Chief Complaints: * 1 . Urine sample, blood work. * Medical History: * Medications: T aking Vitamin D3 50 MCG (2000 UT) Tablet 1 tab(s) orally once a day , Taking B- 12 1000 MCG Tablet 1 tab(s) orally once a day , Taking Aspirin 81 MG 1 P.O. Q HS , Taking Metoprolol Succinate ER 50 MG Tablet Extended Release 24 Hour 1.5 tablet Orally Once a day , Taking Losartan Potassium 50 MG Tablet 1 tab(s) orally twice a day , Taking Eliquis 5 MG Tablet 1 tablet Orally Twice a day , Taking Atorvastatin Calcium 40 mg Tablet TAKE ONE TABLET BY MOUTH EVERY DAY , Medication List reviewed and reconciled with the patient Objective: * Vitals: Assessment: * Assessment: 1. H ypokalemia - E87.6 2 . A cute UTI - N39.0 Plan: * Treatment: Value Reference Range B UN 31 H 8-23 - mg/dL * C alcium 9.9 8.6-10.4 - mg/dL * C hloride 103 97-108 - mmol/L * C O2 26 22-32 - mmol/L * C reatinine 1.14 H 0.50-1.00 - mg/dL * G lucose 90 65-99 - mg/dL * P otassium 4.5 3.5-5.3 - mmol/L * S odium 139 135-145 - mmol/L * e GFR by Creatinine 49 L >59 - mL/min/1.73m2 * Pedro Wing 12/12/2023 1 :28:40 PM > Lab results are satisfactory other than low estimated renal function at 49, normal is over 59, sent to to inform.Avani Moody 12/15/2023 10:56:05 AM > VM not availableAvani Moody 12/15/2023 3:26:23 PM > Pt daughter informed 2.?Acute UTI?LAB: Urinalysis - Inhouse (Collection Date & Time - 12/11/2023)* Value Reference Range C olor/Clarity yellow/clear * L euk 1+ * N itrite neg * U robili 3.2 * P rotein neg * p H 5.5 * B lood trace-intact * S p. Gr. 1.015 * K etone neg * B radha neg * G yesy neg * Carline Dominguez 12/11/2023 11:59:4 6 AM > * Procedure Codes: 8 1002 Urinalysis, no micro * Images: Billing Information: * Visit Code: * Procedure Codes: 60076 Urinalysis, no micro. * Electronic signature of Germaine Wing MD on 01/16/2025 at 10:43 AM EDT Sign off status: Pending * Provider: Jada Wing M.D. Date: 0 12/11/2023 Generated for Susie davis/Gilbert/Fannieitting on: 1 10:43 AM EDT
[2025-01-13 21:37] LABS: Chloride 102 mmol/L (98-107); Potassium 4.4 mmoL/L (3.5-5.1); Sodium 137 mmol/L (136-145)
[2025-01-13 21:40] LABS: Blood Urea Nitrogen 27 mg/dl (7-17); Creatinine,Serum 1.00 mg/dl (0.52-1.04); Estimated Glomerular Filt Rate 53 ml/min (>60); GFR (African American) 65 ML/MIN (>60)
[2025-01-13 21:41] LABS: Anion Gap 12.4 mEq/L (5-15); Calcium 9.0 mg/dl (8.4-10.2); Carbon Dioxide 27 mmol/L (22.0-30.0); Glucose 100 mg/dl (74-100)
--- OUTSIDE RECORDS SUMMARY | 2025-01-16 10:43 | XMS_ITS | Clinical Summary ---
Author Organization [facility] Address [address] [facility] [address] [place] [address] Phone Care Team Providers Care Clinical Product Specialist Name Role Phone Unavailable Unavailable Conditions or Problems No information available. Medications No information available. Medications Administered No information available. Allergies, Adverse Reactions, Alerts No information available. Results No information available. Plan of Care No information available. Procedures No information available. Vital Signs No information available. Immunizations No information available. Advance Directives No information available.
--- OUTSIDE RECORDS SUMMARY | 2025-01-16 10:43 | XMS_ITS | Clinical Summary ---
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 Not on file Not on file Not [...] Date Last Done Comments DXA SCAN 1945 COVID-19 Vaccine (#1) 1949 TDAP/TD VACCINES (1 - Tdap) 09/02/1963 ZOSTER VACCINE (1 of 2) 1994 RSV Vaccine - Adults (1 - 1- dose 75+ series) 09/02/2019 ANNUAL WELLNESS VISIT 09/11/2021 INFLUENZA VACCINE 10/21/2024 01/24/2022 Pneumococcal Vaccine 50+ Completed 01/24/2022, 11/22 [id number] Advance Directives * CPR (Attempt to Resuscitate) (Latest Code Status on File) Date Activated Date Inactivated Comments 07/22/2021 9:23 PM 07/30/2021 2:33 PM Question Answer Comments Code Status (Patient has no pulse and is not breathing): CPR (Attempt to Resuscitate) Medical Interventions (Patie nt has pulse or is breathing): Full Support Care Teams Meat Boner Relationship Specialty Start Date End Date Tee Amador MD [address] [place] [address] [address] [facility] [address] [place] [address] PCP - General Family Medicine 07/22/21
--- OUTSIDE RECORDS SUMMARY | 2025-01-16 10:44 | XMS_ITS | Encounter Summary ---
Author Organization Healthcare Address [address] [place] [address] Care Team Providers Care Pretzel Twisting Machine Operator Name Role Phone Unavailable Primary Care Provider Unavailabl e Encounter Details Date Type Department Care Team (Late st Contact Info) Description 11/10/2023 Orders Only External Location [address] [place] [address] Treasure James, [address] [place] [address] Social History Tobacco Use Types [...]
--- OUTSIDE RECORDS SUMMARY | 2025-01-16 10:44 | XMS_ITS | Encounter Summary ---
Author Organization Healthcare Address [address] [place] [address] Care Team Providers Care Dental Service Technician Name Role Phone Unavailable Primary Care Provider Unavailabl e Encounter Details Date Type Department Care Team (Late st Contact Info) Description 11/10/2023 Orders Only External Location [address] [place] [address] Treasure James, [address] [place] [address] Social History Tobacco Use Types [...]
--- OUTSIDE RECORDS SUMMARY | 2025-01-16 10:44 | XMS_ITS | Clinical Summary ---
Author Organization Healthcare Address [address] [place] [address] Care Team Providers Care Otolaryngology Nurse Name Role Phone Unavailable Primary Care Provider [...] or (1 - 1-dose 75+ series) 09/02/2019 [id number] Vaccine (3 - 2024- season) 2024 06/14/2020, 05/17/2020 UKY-Influenza Vaccine (#1) 2024 01/24/2022 [...] this topic Insurance [employer] [place] [address]
--- OUTSIDE RECORDS SUMMARY | 2025-01-16 10:45 | XMS_ITS | Patient Health Record ---
[facility] [address] [facility] [address] [place] [id number] Care Team Providers Care Art Coordinator Name Role Phone Pardeep Amador Primary Care Provider [phone] Pedro Wing Unavailable [phone] Allergies Allergen (clinical drug ingredient) Drug/Non Drug Allergy documented on EMR Reaction Allergy Type Onset Date Status angiotensin-converting enzyme inhibitor (FN) JORGE Inhibitors cough Drug Allergy Acti ve Medications Medication SIG (Take, Route, Frequency, Duration) [...] W/U Status Risk Notes Problem Essential hypertension (60060929) Essential (primary) hypertension (I10) Active confirmed Problem Vitamin D deficiency (35903865) Vitamin D deficiency (E55.9) Active confirmed Problem Vitamin B12 deficiency (640717070) Vitamin B12 deficiency (E53.8) Active confirmed Problem Essential hypertension (38539965) Essential hypertension (I10) Active confirmed Problem Long-term current use of anticoagulant (453503308) 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) Active confirmed Problem Sick sinus syndrome (64097301) Sick sinus syndrome (I49.5) Active confirmed Problem Paroxysmal atrial fibrillation (747510018) Paroxysmal atrial fibrillation (I48.0) Active confirmed Problem Mixed hyperlipidemia (107301333) Mixed hyperlipidemia (E78.2) Active confirmed Problem Peripheral vascular disease (305140773) Peripheral vascular disease (I73.9) Active confirmed Problem Atrial fibrillation (51683199) Atrial fibrillation, unspecified type (I48.91) Active confirmed Problem Hyperlipidaemia (19888937) Hyperlipidemia, unspecified hyperlipidemia type (E78.5) Active confirmed Problem Cerebrovascular accident (356786574) Cerebrovascular accident (CVA), unspecified mechanism (I63.9) Active confirmed Problem Peripheral vascular disease (532157746) PAD (peripheral artery disease) (I73.9) Active confirmed Problem Cardiac arrhythmia (141060409) Cardiac arrhythmia, unspecified cardiac arrhythmia type (I49.9) Active confirmed Problem Osteopenia (602620304) Osteopenia, unspecified location (M85.80) Active confirmed Problem Localized, primary osteoarthritis of the ankle and/or foot (488544265) Primary osteoarthritis of right foot (M19.071) Active confirmed Problem Fibrocystic breast changes (90435540) Fibrocystic breast disease (FCBD), unspecified laterality (N60.19) Active confirmed Problem History of cerebrovascular accident without residual deficits (125890642) Status post CVA (Z86.73) Active confirmed Problem Amputated below knee (074351793) 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) Active confirmed Problem Deformity of right foot (983557738) Deformity of right foot (M21.961) Active confirmed Problem Ulcer of right foot (disorder) (741226420) Ulcer of right foot, limited to breakdown of skin (L97.511) Active confirmed Problem Primary hypertension (30704275) Primary hypertension (I10) Active confirmed Problem 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) Active confirmed Encounters Encounter Location Date Provider Diagnosis [facility] [address] [place], [place] [id number] 10/13/2024 Pedro Wing Plan Of Treatment Pending Test Test Name Order Date Cologuard 01/24/2022 Insurance Providers Payer Name Payer Address Payer Phone Subscriber Number Group Number Insured Name Patient Relationship to Insured Coverage Start Date Coverage End Date A[employer]O [employer] CR[employer]IELD [address] [place] [address] [id number] LIVENGOO DJESSE Self - patient is the insured MEDICAID [employer] [address] [place] [id number] LIVENGOO DJESSE Self - patient is the insured Medications [...]
== END 2025-01-13 23:59 ==
LOC: LAB.DROPOF 01-16 10:32
PROVIDERS: PCP Family Medicine; Visit Provider Family Medicine
DX: I10 Essential (primary) hypertension (principal)
CPT/HCPCS: 80048

== ENCOUNTER 2025-03-10 09:22 | Emergency (ER) | payer MEDICARE, MEDICAID, SELFPAY ==
[2025-03-10 09:34] VITALS: BP 152/93; PULSE 89; O2SAT 96
--- NOTE | 2025-03-10 09:38 | XR_ITS ---
FINAL REPORT CLINICAL HISTORY: Shortness of breath COMPARISON: 11/10/2023 FINDINGS: The heart size is moderately enlarged. The mediastinum is normal. Coarse interstitial opacities are probably chronic. There are no pleural effusions. There is no pneumothorax. There is no osseous abnormality. IMPRESSION: Probable chronic coarse interstitial opacities. Reviewed, Interpreted and Dictated by Johny Abdi MD Transcribed by Adriana Dubois Authenticated and [facility]
[2025-03-10 09:41] VITALS: BP 159/93; PULSE 92; RESP 22; TEMP 36.9; O2SAT 96; BMI 35.6
--- NOTE | 2025-03-10 09:41 | HMH.EDGENADL ---
Discharge Plan Disposition Patient Disposition: Home, Self-Care Prescriptions Prescriptions: No Action mecobalamin (vitamin B12) 1,000 mcg tablet,chewable 1,000 mcg PO DAILY cholecalciferol (vitamin D3) 50 mcg (2,000 unit) capsule 50 mcg PO DAILY atorvastatin 40 mg tablet 40 mg PO HS Qty: 30 12RF metoprolol succinate 50 mg tablet extended release 24 hr See Rx Instructions .ROUTE .COMPLEX Qty: 135 1RF Dose Instruction: TAKE 1 AND 1/2 TABLET BY MOUTH EVERY DAY Rx Instructions: TAKE 1 AND 1/2 TABLET BY MOUTH EVERY DAY losartan 50 mg tablet 50 mg PO BID Qty: 180 0RF furosemide 20 mg tablet 40 mg PO DAILY Qty: 60 1RF meclizine 25 mg tablet See Rx Instructions .ROUTE .COMPLEX Qty: 90 1RF Dose Instruction: TAKE ONE TABLET BY MOUTH THREE TIMES DAILY NEEDED FOR DIZZINESS MAY CAUSE DROWSINESS Rx Instructions: TAKE ONE TABLET BY MOUTH THREE TIMES DAILY NEEDED FOR DIZZINESS MAY CAUSE DROWSINESS Eliquis 5 mg tablet See Rx Instructions .ROUTE .COMPLEX Qty: 60 1RF Dose Instruction: TAKE ONE TABLET BY MOUTH TWICE DAILY Rx Instructions: TAKE ONE TABLET BY MOUTH TWICE DAILY Referrals Follow up/Referrals: Mata Weaver MD [Staff Physician, Cardiology] - See instructions Collin Tobias MD [Primary Care Provider, Family Practice] - See instructions Activity Restrictions/Add. Instructions Additional Instructions/Restrictions: No evidence of an acute cardiopulmonary or neurologic emergency. Please follow-up closely with your bailiff early next week. Return to the emergency room with any significant worsening of your symptoms. Clinical Impressions Clinical Impression: Near syncope, Generalized weakness Print Language Print Language: Bulgarian Discharge ED Provider: Pardeep Smalls General Adult HPI General Chief complaint: Dizziness Stated complaint: BP 175/83, lightheaded, shacking, face swelling Time Seen by Provider: 03/10/25 09:27 History of Present Illness HPI narrative: Patient is an 79-year-old female presenting today with generalized weakness and near syncope. She is accompanied by her son who is the primary historian. States that she has been getting lightheaded has a history of vertigo but states that this is well but different since she calls them and spells over the last several days. She has also had some chills and is recovering from a cold but states the majority of those symptoms have improved. Denies any objective fever. Denies any chest pain shortness of breath cough. Son states he felt that her face was low bit more swollen than normal and that she has chronic edema in her left lower extremity but that appears to be at her baseline. She also has a history of a stroke with no new or different focal neurologic deficits. They both state that she has had significant generalized weakness since she had her lower extremity surgically removed secondary to an infection. This happened about 4 years ago. Related Data Home Medications ?Medication ?Instructions ?Recorded ?Confirmed cholecalciferol (vitamin D3) 50 50 mcg PO DAILY 08/02/20 01/13/25 mcg (2,000 unit) capsule mecobalamin (vitamin B12) 1,000 1,000 mcg PO DAILY 08/02/20 01/13/25 mcg chewable tablet Previous Rx's ?Medication ?Instructions ?Recorded atorvastatin 40 mg tablet 40 mg PO HS #30 tabs 09/05/24 losartan 50 mg tablet 50 mg PO BID #180 tabs 09/12/24 metoprolol succinate 50 mg See Rx Instructions .Route 09/12/24 tablet,extended release 24 hr .COMPLEX #135 tabs apixaban 5 mg tablet (Eliquis) See Rx Instructions .Route 01/20/25 .COMPLEX #60 tabs furosemide 20 mg tablet 40 mg (2 x 20 mg) PO DAILY #60 tabs 01/20/25 meclizine 25 mg tablet See Rx Instructions .Route 01/20/25 .COMPLEX #90 tabs Allergies Allergy/AdvReac Type Severity Reaction Status Date / Time Penicillins Allergy Verified 01/13/25 13:52 [facility] Disclaimer: The information contained in this section may have been updated after the patient was seen, as this information can be updated by other users. Medical History Vitamin D deficiency Pedal edema Fall Osteoarthritis of hands, bilateral Aneurysm, ophthalmic artery Pulmonary nodule Chronic kidney disease A-fib Abnormal ECG Elevated brain natriuretic peptide (BNP) level Elevated LFTs Fall at home Acute hyperkalemia Incidental pulmonary nodule Skin ulcer Non-compliance Skin ulcer of toe of right foot, limited to breakdown of skin Non-healing ulcer of right foot Cellulitis of right foot Ulcer of right foot with fat layer exposed Abnormal ankle brachial index (BUCKY) Decreased pedal pulses Encounter for wound care Callus of foot Keratosis Acquired deformity of right foot Acquired hammertoes of both feet Right foot pain Overweight (BMI 25.0-29.9) Pre-ulcerative calluses Pulmonary hypertension Edema (HFpEF) heart failure with preserved ejection fraction Amputated right leg PAD (peripheral artery disease) HTN (hypertension) CVA (cerebral vascular accident) HLD (hyperlipidemia) Syncope History of atrial fibrillation Osteoarthritis History of stroke History of cataract Gallbladder disease Surgical History History of thrombectomy Hx of amputation below knee right Hx of cataract surgery left eye Hx of umbilical hernia repair Hx of breast biopsy left History of colonoscopy History of cholecystectomy Family History Other Family history of asthma Family history of cancer Family history of diabetes mellitus type II Family history of gallbladder disease Family history of hypothyroidism Lung cancer Social History Smoking Status: Never smoker second hand exposure: No alcohol intake: never substance use type: denies use current occupational status: retired Travel in the last 8 weeks?: None household members: spouse housing: house current occupational exposures/hazards: No caffeine: Yes special rosio needs: No agree to transfusion: No do you feel safe at home: Yes victim of physical abuse: No victim of emotional abuse: No victim of sexual abuse: No would you like helpful sources: No Have you lived/traveled outside [place] in past 30 days?: No Contact w/someone who lives/traveled outside US past 30 days?: No Exposure to someone with infectious disease in past 14 days?: No Do you have a fever (greater than 100.4 F or 38 C)?: No Have you tested positive for COVID-19?: No Exposed to someone with COVID-19 in past 14 days?: No Do you have a sore throat?: No Do you have a cough?: No Do you have any weakness?: Yes Do you have any diarrhea?: No Are you experiencing any unusual bleeding?: No Do you have any muscle aches/pain?: No Do you have any abdominal pain?: No Are you experiencing loss of taste or smell?: No Other Medical History Have you received the Flu Vaccine for this season: No Have you received the Pneumonia Vaccine: Yes ROS Obtained: Yes All systems reviewed & no additional complaints except as documented Physical Exam General General appearance: alert and in no apparent distress Respiratory Respiratory exam: Present normal lung sounds bilaterally; Absent respiratory distress Cardiovascular Cardiovascular exam: Present tachycardia Abdominal Exam Abdominal exam: Present soft; Absent distention or tenderness Neurological Exam Neurological exam: Present alert, oriented X3 and other (Nonfocal) Medical Decision Making Medical Records Screening: Per USPSTF and CDC recommendations, given the prevalence of disease in our region, it is our hospital?s policy to screen for HIV and viral Hepatitis for all patients aged 18 and over and those with ongoing risk factors. Cameron Inquiry Pt receiving controlled substance: No Vital Signs: 03/10/25 09:34 03/10/25 09:41 03/10/25 09:41 Temperature 98.4 F 98.4 F Temperature Source Oral Pulse Rate 89 92 H Pulse Rate [Right] 92 H Respiratory Rate 22 22 Blood Pressure 152/93 H 159/93 H Blood Pressure [Right Arm] 159/93 H Blood Pressure Mean [Right Arm] 115 02 Sat by Pulse Oximetry 96 96 96 03/10/25 10:01 03/10/25 10:30 Temperature Temperature Source Pulse Rate 81 69 Pulse Rate [Right] Respiratory Rate Blood Pressure 158/85 H 160/79 H Blood Pressure [Right Arm] Blood Pressure Mean [Right Arm] 02 Sat by Pulse Oximetry 96 95 Lab Data Lab results reviewed: Yes I reviewed the patient's lab results. Lab Results 03/10/25 09:50: SARS-CoV-2 (PCR) Not detected, Influenza A Untype (PCR) Not detected, Influenza Type B (PCR) Not detected 03/10/25 09:55: WBC 10.2, RBC 4.01 L, Hgb 12.0 L, Hct 37.2, MCV 92.8, MCH 29.9, MCHC 32.3, RDW 14.3, Plt Count 281, MPV 9.8, Neut % (Auto) 78.4, Lymph % (Auto) 12.3, Taney % (Auto) 7.0, Eos % (Auto) 1.2, Baso % (Auto) 0.4, Neut # (Auto) 8.0 H, Lymph # (Auto) 1.3, Taney # (Auto) 0.7, Eos # (Auto) 0.1, Baso # (Auto) 0.0, Sodium 138, Potassium 4.3, Chloride 108 H, Carbon Dioxide 22, Anion Gap 12.3, BUN 16, Creatinine 1.10 H, Estimated Creat Clear 59, Estimated GFR 48 L, Est GFR ( Amer) 58 L, Glucose 146 H, Calcium 9.4, Magnesium 1.7, Total Bilirubin 0.9, AST 28, ALT 25, Alkaline Phosphatase 110, Troponin I < 0.01, NT-Pro-B Natriuret Pep 2590 H, Total Protein 6.6, Albumin 3.8, Globulin 2.8, Albumin/Globulin Ratio 1.4, TSH 2.92 03/10/25 09:55 03/10/25 09:55 Orders (Tests/Meds): ORDERS Category Date Time Status CXR --portable [XR chest portable] Stat Exams 03/10/25 09:38 Taken BNP [NT Pro Brain Natriuretic Pep.] Stat Lab 03/10/25 09:55 Completed CBC w/Auto Diff [Complete Blood Count Auto Diff] Stat Lab 03/10/25 09:55 Completed CMP [Comprehensive Metabolic Panel] Stat Lab 03/10/25 09:55 Completed Magnesium Stat Lab 03/10/25 09:55 Completed Rapid PCR Covid and Flu A/B Stat Lab 03/10/25 09:50 Completed TSH [Thyroid Stimulating Hormone] Stat Lab 03/10/25 09:55 Completed Trop I [Troponin I] Stat Lab 03/10/25 09:55 Completed Troponin I Q3H Lab 03/10/25 12:45 Ordered Troponin I Q3H Lab 03/10/25 15:45 Ordered UA [Urinalysis and Microscopic] Stat Lab 03/10/25 09:39 Ordered Medical Decision Narrative: 79-year-old female with above history and physical. She has generalized weakness has a nonfocal neurologic exam does not appear to have any emergent cardiovascular emergency going on at the moment. She does have lower extremity edema and could have component of heart failure from historical standpoint she has been diagnosed with pulmonary hypertension that could be contributory to her whole body edema. She is on Lasix. No supplemental oxygen required and she is tachycardic but required significant amounts of energy to transition from her wheelchair to the bed which is likely the cause of her tachycardia on my initial presentation. Will work her up for abnormalities associated with arrhythmias and electrode abnormalities that could cause generalized weakness. Additionally she recently had a cold from her perspective and has had some chills but does not appear to be septic however I will get a rapid COVID and flu as that could be contributory at the moment. Unlikely that I will find an emergent medical condition that would warrant admission and this has been explained to the family but broad workup is pending regarding her generalized weakness and near syncope. At the moment she states that she feels normal from a cognition standpoint and she has no other focal neurologic deficits to suggest that there is a neurologic abnormality that is contributory. EKG performed I personally turbid shows A-fib ventricular rate of 78 no RVR no acute ischemic changes or conduction abnormalities noted otherwise Reassessment 1111 patient's blood pressure has improved spontaneously without any intervention she also states she feels much better serial exams are normal. Chest x-ray performed I personally interpreted shows no evidence of an acute consolidation or significant pulmonary edema or pleural effusions. No other acute abnormality noted. EKG is unremarkable as stated above labs unremarkable aside from a chronically elevated BNP she has known pulmonary hypertension and heart failure with preserved ejection fraction. She is not significantly or severely or acutely volume overloaded does not need to be admitted for IV diuresis she is breathing comfortably with normal oxygen saturations. Neurologically everything appears normal from a clinical assessment. Creatinine is at its baseline. Overall patient looks well and can follow-up closely with cardiology for her generalized weakness and near syncopal episodes that she has been having. No further indication for emergency intervention treatment or admission to the hospital. Patient and son at the bedside are in agreement with this plan and understand the results of today's evaluation and workup. Critical Care Critical Care Time Critical Care Time: No
--- OUTSIDE RECORDS SUMMARY | 2025-03-10 09:48 | XMS_ITS | Clinical Summary ---
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
--- OUTSIDE RECORDS SUMMARY | 2025-03-10 09:48 | XMS_ITS | Clinical Summary ---
Author Organization [facility] Address [address] [place] [address] Phone Care Team Providers Care Health Sciences Manager Name Role Phone Unavailable Unavailable Conditions or Problems No information available. Medications No information available. Medications Administered No information available. Allergies, Adverse Reactions, Alerts No information available. Results No information available. Plan of Care No information available. Procedures No information available. Vital Signs No information available. Immunizations No information available. Advance Directives No information available.
--- OUTSIDE RECORDS SUMMARY | 2025-03-10 09:48 | XMS_ITS | Encounter Summary ---
Author Organization [facility] Address [address] [place] [address] Care Team Providers Care [place] Clerk Name Role Phone Unavailable Primary Care Provider Unavailabl e Encounter Details Date Type Department Care Team (Late st Contact Info) Description 11/10/2023 Orders Only External Location [address] [place] [address] [facility], [address] [place] [address] Social History Tobacco Use Types [...]
--- OUTSIDE RECORDS SUMMARY | 2025-03-10 09:48 | XMS_ITS | Clinical Summary ---
Author Organization [facility] Address [address] [place] [address] Care Team Providers Care Clerk [employer] Service Name Role Phone Unavailable Primary Care Provider [...] or (1 - 1-dose 75+ series) 09/02/2019 [id number] Vaccine (3 - season) 2024 06/14/2020, 05/17/2020 [facility]-Influenza Vaccine (#1) 2024 01/24/2022 [facility]-Pneumococcal Vaccine: 50+ Years Completed 01/24/2022, 12/14/2019 HPV Vaccines (No Doses Required) Completed [facility]-HIB Vaccines Aged Out No longer e [...] this topic Insurance [employer] [place] [address]
--- OUTSIDE RECORDS SUMMARY | 2025-03-10 09:48 | XMS_ITS | Encounter Summary ---
Author Organization [facility] Address [address] [place] [address] Care Team Providers Care Sales Representative [employer] Name Role Phone Unavailable Primary Care Provider Unavailabl e Encounter Details Date Type Department Care Team (Late st Contact Info) Description 11/10/2023 Orders Only External Location [address] [place] [address] [facility], [address] [place] [address] Social History Tobacco Use Types [...]
[2025-03-10 09:53] LABS: Coronavirus 19, PCR Not Detected (NotDetected); Influenza A, PCR Not Detected (NotDetected); Influenza B, PCR Not Detected (NotDetected)
[2025-03-10 10:01] VITALS: BP 158/85; PULSE 81; O2SAT 96
[2025-03-10 10:03] LABS: Hematocrit 37.2 % (37.0-47.0); Hemoglobin 12.0 g/dL (12.2-16.2); Immature Granulocytes % 0.7 %; Mean Corpuscular HGB Conc 32.3 g/dL (31.8-35.4); Mean Corpuscular Hemoglobin 29.9 pg (27.0-31.2); Mean Corpuscular Volume 92.8 fl (81-99); Nucleated Red Blood Cells % 0 %; Platelet Count 281 K/mm3 (142-424); Red Blood Count 4.01 M/mm3 (4.20-5.40); Red Cell Distribution Width-SD 48.3 fL; White Blood Count 10.2 K/mm3 (4.8-10.8)
--- NOTE | 2025-03-10 10:12 | ECG_ITS ---
APPROVED REPORT Exam: Resting ECG HR:78 bpm ECG Measurements Heart Rate 78 AXES QRSd 79 QRS 28 QT 397 T 61 QTc 430 Conclusion ATRIAL FIBRILLATION SEPTAL MYOCARDIAL INFARCTION , PROBABLY OLD [40+ ms Q WAVE IN V1/V2] ABNORMAL ECG UNCONFIRMED REPORT Electronically signed by : Jules Smalls, 03/10/2025 15:18:42
[2025-03-10 10:14] LABS: Albumin Level 3.8 g/dl (3.5-5.0); Chloride 108 mmol/L (98-107); Potassium 4.3 mmoL/L (3.5-5.1); Sodium 138 mmol/L (136-145)
[2025-03-10 10:16] LABS: Blood Urea Nitrogen 16 mg/dl (7-17); Creatinine Clearance Estimated 59 mL/min (50-200); Creatinine,Serum 1.10 mg/dl (0.52-1.04); Estimated Glomerular Filt Rate 48 ml/min (>60); GFR (African American) 58 ML/MIN (>60)
[2025-03-10 10:17] LABS: Alanine Aminotransferase 25 U/L (12-78); Albumin/Globulin Ratio 1.4 (1.1-1.8); Alkaline Phosphatase 110 U/L (38-126); Anion Gap 12.3 mEq/L (5-15); Aspartate Amino Transferase 28 U/L (14-36); Bilirubin,Total 0.9 mg/dl (0.2-1.3); Calcium 9.4 mg/dl (8.4-10.2); Carbon Dioxide 22 mmol/L (22.0-30.0); Globulin 2.8 g/dL (1.3-3.2); Glucose 146 mg/dl (74-100); Magnesium 1.7 mg/dl (1.6-2.3); Total Protein,Serum 6.6 g/dl (6.3-8.2)
[2025-03-10 10:26] LABS: NT Pro Brain Natriuretic Pep. 2590 pg/mL (0-450)
[2025-03-10 10:30] VITALS: BP 160/79; PULSE 69; O2SAT 95
[2025-03-10 10:43] LABS: Troponin I < 0.01 ng/ml (0.00-0.034)
[2025-03-10 10:47] LABS: Thyroid Stimulating Hormone 2.92 uIU/mL (0.465-4.68)
[2025-03-10 11:24] VITALS: BP 134/78; PULSE 70; RESP 18; TEMP 36.9; O2SAT 96
== END 2025-03-10 11:41 | disposition home or self-care (01) ==
PROVIDERS: Emergency Provider Student in an Organized Health Care Education/Training Program; PCP Family Medicine
DX: R55 Syncope and collapse (principal); R42 Dizziness and giddiness; R53.1 Weakness; I11.0 Hypertensive heart disease with heart failure; I50.30 Unspecified diastolic (congestive) heart failure
CPT/HCPCS: 71045; 80053; 83735; 83880; 84443; 84484; 85025; 87636; 93005; 99284